=== PATIENT | male | born 1955 | race Caucasian/White ===

== ENCOUNTER 2016-09-06 15:17 | Emergency (ER) | payer OTHER ==
[2016-09-06 15:42] LABS: Glucose,Whole Blood 117 mg/dL (75-99)
[2016-09-06] MEDS ORDERED: SODIUM CHLORIDE 0.9% 1,000 ML IV ONE (15:50)
[2016-09-06 16:04] LABS: Basophils # (A) 0.1 k/uL (0-0.2); Basophils % (A) 1 %; CH 34.1; CHCM 34.5; Eosinophils # (A) 0.1 k/uL (0-0.7); Eosinophils % (A) 3 %; HCT 44.4 % (39.0-53.0); HGB 14.6 gm/dL (13.0-17.5); Luc # (Auto) 0.12; Luc % (Auto) 3; Lymphocytes # (A) 1.5 k/uL (1.0-4.8); Lymphocytes % (A) 33 %; MCH 32.7 pg (25.0-35.0); MCHC 32.9 g/dL (31.0-37.0); Mean Platelet Volume 7.9; Monocytes # (A) 0.3 k/uL (0-1.0); Monocytes % (A) 6 %; Neutrophils # (A) 2.5 k/uL (1.3-7.7); Neutrophils % (A) 54 %; RBC 4.47 m/uL (4.30-5.90); RDW 13.3 % (11.5-15.5); WBC 4.7 k/uL (3.8-10.6); WBC (Perox) 4.54
[2016-09-06 16:10] LABS: MCV 99.4 fL (80.0-100.0)
[2016-09-06 16:12] LABS: Prothrombin Time 10.1 sec (9.0-12.0)
[2016-09-06 16:14] LABS: ALT 49 U/L (21-72); AST 29 U/L (17-59); Alcohol <10 mg/dL; Alkaline Phosphatase 87 U/L (38-126); Anion Gap 8 mmol/L; Blood Urea Nitrogen 8 mg/dL (9-20); Calcium 8.9 mg/dL (8.4-10.2); Carbon Dioxide 30 mmol/L (22-30); Chloride 103 mmol/L (98-107); Glucose 117 mg/dL (74-99); Non-African American GFR(MDRD) >60 (>60 ml/min/1.73 sqM); Potassium 3.8 mmol/L (3.5-5.1); Sodium 141 mmol/L (137-145); Total Bilirubin 0.7 mg/dL (0.2-1.3); Total Protein 5.6 g/dL (6.3-8.2)
[2016-09-06 16:16] LABS: Creatine Kinase 26 U/L (55-170)
--- NOTE | 2016-09-06 16:26 | CT ---
EXAMINATION TYPE: CT brain wo con DATE OF EXAM: 09/06/2016 4:07 PM COMPARISON: NONE HISTORY: 61-year-old male with weakness and dizziness for one day. TECHNIQUE: Examination was done in axial plane without intravenous contrast. Coronal and sagittal reconstructio ns performed. CT DLP: 1123 mGycm Automated exposure control for dose reduction was used. FINDINGS: There is no evidence of acute intracranial hemorrhage, acute ischemic changes, mass, mass-effect, or extra-axial fluid collection. There is no effacement of cerebral sulci or basal subarachnoid cister ns. There is no hydrocephalus. There is no midline shift. Nunez-white matter distinction is preserv ed. There is mild to moderate generalized supratentorial volume loss and mild to moderate patchy white ma tter hypodensities in both cerebral hemispheres. There is moderate mucosal thickening within the maxillary sinuses and ethmoid air cells. Cerumen with in the left external auditory canal. Mastoid air cells well pneumatized. Orbits and globes are intact . IMPRESSION: 1. No acute intracranial abnormality seen. Mild to moderate atrophy and changes of chronic small vess el ischemic disease. 2. 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
[2016-09-06 16:29] LABS: Creatine Kinase MB 1.1 ng/mL (0.0-2.4); Troponin I <0.012 ng/mL (0.000-0.034)
--- NOTE | 2016-09-06 16:31 | XR ---
EXAMINATION TYPE: XR chest 2V DATE OF EXAM: 09/06/2016 4:10 PM COMPARISON: CT scan of the chest dated April 08, 2016 HISTORY: Altered mental status TECHNIQUE: Frontal and lateral views of the chest are obtained. FINDINGS: There is no focal air space opacity, pleural effusion, or pneumothorax seen. The cardiac silhouette size is within normal limits. Emphysematous changes are present within the lungs, there are prominent lung volumes. No pneumothorax or pleural effusion. Interstitium is prominent. Heart siz e is borderline. Pulmonary vascularity and kendra are within normal limits. Patient is rotated. The oss eous structures are intact. IMPRESSION: Emphysema, rotated exam, follow-up as indicated. There may be a component of interstitia l lung disease. Correlate to exclude pulmonary venous hypertension and interstitial edema. Follow-up suggested.
--- NOTE | 2016-09-06 16:32 | ED ---
General Adult HPI - General Chief complaint: Neuro Symptoms/Deficit Stated complaint: Dr Eason/Cecilia Time Seen by Provider: 09/06/16 15:26 Source: patient Mode of arrival: wheelchair - History of Present Illness Initial comments: This 61-year-old male presents with with a complaint of some slurred speech , memory problems, balance issues, and confusion. The symptoms started approximately 5 days ago. He apparently is having a difficult time ambulating and fell approximately 3 days ago but did not sustain any injuries. The relates that he apparently 4-5 days ago was seen at an urgent care for a cough. He is placed on a Zithromax Z-Zackery as well as a unknown cough medication. The symptoms seemed to have started shortly thereafter. He also was prescribed an inhaler which she has not taken. He also started Chantix approximately one week ago to try to stop smoking. He also was prescribed Librium. He also was prescribed lorazepam on August 13 for help in stopping his alcohol abuse. His symptoms seem to significantly worsen after taking all these medications. He normally is not used to taking any of these medications. He states that he normally drinks approximately 1 pint of alcohol per day but has cut back recently. He denies any lateralized weakness. No other complaints or modifying factors. - Related Data Home Medications Medication Instructions Recorded Confirmed Aspirin 325 mg PO DAILY 06/27/16 09/06/16 Carvedilol [Coreg] 3.125 mg PO BID 06/27/16 09/06/16 Finasteride [Proscar] 5 mg PO DAILY 07/17/16 09/06/16 LORazepam [Ativan] 0.5 mg PO Q6H PRN 07/17/16 09/06/16 Albuterol Inhaler [Ventolin Hfa 2 puff INHALATION Q4H PRN 09/06/16 09/06/16 Inhaler] Azithromycin [Zithromax Z-pack] See Taper PO DIRECTED 09/06/16 09/06/16 Benzonatate [Tessalon Perles] 100 mg PO TID PRN 09/06/16 09/06/16 Previous Rx's Medication Instructions Recorded Atorvastatin [Lipitor] 80 mg PO HS #90 tab 07/18/16 Clopidogrel [Plavix] 75 mg PO DAILY #90 tab 07/18/16 Allergies Allergy/AdvReac Type Severity Reaction Status Date / Time codeine AdvReac "spacey" Verified 09/06/16 15:27 Review of Systems ROS Statement: Those systems with pertinent positive or pertinent negative responses have been documented in the HPI. ROS Other: All systems not noted in ROS Statement are negative. Past Medical History Past Medical History: Chest Pain / Angina, Myocardial Infarction ([place]), Vascular Disorder Additional Past Medical History / Comment(s): PAIN IN LEG/FEET, CHRONIC BACK PAIN, CAN'T WALK LONG DISTANCES. Last Myocardial Infarction Date:: SILENT History of Any Multi-Drug Resistant Organisms: None Reported Past Surgical History: Heart Catheterization With Stent, Tonsillectomy Additional Past Surgical History / Comment(s): ANGIOGRAM 06/28/16 Past Anesthesia/Blood Transfusion Reactions: No Reported Reaction Past Psychological History: Anxiety Smoking Status: Current every day smoker Past Alcohol Use History: Daily Additional Past Alcohol Use History / Comment(s): HAS SMOKED FOR 50+ YRS, HAS REDUCED FROM 3PP TO 1PP. DRINKS ABOUT A PINT TO A FIFTH OF ALCOHOL PER DAY. IS TRYING VERY HARD TO QUIT BOTH. USING NICOTINE PATCH Past Drug Use History: None Reported - Past Family History Mother Family Medical History: CVA/TIA Father Family Medical History: CVA/TIA General Exam - General Exam Comments Initial Comments: GENERAL: The patient is well nourished and well hydrated. VITAL SIGNS: Heart rate, blood pressure, respiratory rate reviewed as recorded in nurse's notes. EYES: Pupils are round and reactive. Extraocular movements are intact. No conjunctival / lid redness or swelling. ENT: No external evidence of injury, swelling, or ecchymosis. Airway is patent. Throat is clear. There is some mild rhinophyma noted. NECK: Nontender. No swelling or evidence of injury. No subcutaneous emphysema. Trachea is midline. No thyroid mass. HEART: Regular rate and rhythm. Good peripheral pulses. LUNGS/CHEST: Breath sounds clear and equal bilaterally. No rales, rhonchi, or wheezes. No ecchymosis, subcutaneous emphysema, or tenderness. ABDOMEN: Abdomen soft without tenderness. No palpable masses or organomegaly. No peritoneal signs. No abdominal wall swelling or ecchymosis. EXTREMITIES: No extremity tenderness. Normal muscle tone and function. No thoracolumbar tenderness. NEUROLOGIC: Sensation is grossly intact. Cranial nerve exam reveals face is symmetrical, tongue is midline. There is some slight slurred speech. There is no lateralized abnormalities in regard to strength. SKIN: No abrasions or ecchymosis is noted. No induration or masses noted. PSYCHIATRIC: Alert and oriented. Appropriate behavior and judgment. Course Vital Signs 09/06/16 09/06/16 09/06/16 15:22 15:37 16:50 Temperature 97.5 F L Pulse Rate 91 84 73 Respiratory 18 16 15 Rate Blood Pressure 115/69 127/76 129/73 O2 Sat by Pulse 92 L 96 96 Oximetry 09/06/16 18:22 Temperature 96.9 F L Pulse Rate 75 Respiratory 16 Rate Blood Pressure 147/82 O2 Sat by Pulse 93 L Oximetry Medical Decision Making - Medical Decision Making The patient was seen and examined. All diagnostics were reviewed. An EKG was done which shows a normal sinus rhythm with a right bundle-branch block and associated ST-T wave changes. The LA interval is 158, castration is 146, and QTc interval is 515. The chest x-ray shows evidence of possible interstitial disease and COPD. The computed tomography scan of brain is negative. The laboratory is essentially negative. The urinalysis drug screen shows evidence of a positive value for benzodiazepines consistent with his medication history. This felt as though he is having his symptoms due to the medications he is taking. Is felt as though he should stop the Chantix and the Librium. He is agreeable. He is offered and recommended admission to the hospital but refuses. Return parameters are discussed. He actually does appear somewhat improved on recheck. No further slurring of speech and he is oriented. The states that she will bring him back if he does worsen. He leaves in no severe distress. - Lab Data Result diagrams: 09/06/16 15:45 09/06/16 15:45 Lab Results 09/06/16 09/06/16 09/06/16 Range/Units 15:37 15:45 15:45 WBC 4.7 (3.8-10.6) k/uL RBC 4.47 (4.30-5.90) m/uL Hgb 14.6 (13.0-17.5) gm/dL Hct 44.4 (39.0-53.0) % MCV 99.4 D (80.0-100.0) fL MCH 32.7 (25.0-35.0) pg MCHC 32.9 (31.0-37.0) g/dL RDW 13.3 (11.5-15.5) % Plt Count 140 L (150-450) k/uL Neutrophils % 54 % Lymphocytes % 33 % Monocytes % 6 % Eosinophils % 3 % Basophils % 1 % Neutrophils # 2.5 (1.3-7.7) k/uL Lymphocytes # 1.5 (1.0-4.8) k/uL Monocytes # 0.3 (0-1.0) k/uL Eosinophils # 0.1 (0-0.7) k/uL Basophils # 0.1 (0-0.2) k/uL PT (9.0-12.0) sec INR (<1.1) APTT (22.0-30.0) sec Sodium (137-145) mmol/L Potassium (3.5-5.1) mmol/L Chloride (98-107) mmol/L Carbon Dioxide (22-30) mmol/L Anion Gap mmol/L BUN (9-20) mg/dL Creatinine (0.66-1.25) mg/dL Est GFR (MDRD) Af Amer (>60 ml/min/1.73 sqM) Est GFR (MDRD) Non-Af (>60 ml/min/1.73 sqM) Glucose (74-99) mg/dL POC Glucose (mg/dL) 117 H (75-99) mg/dL POC Glu [employer] ID Adam, Hermelinda Calcium (8.4-10.2) mg/dL Total Bilirubin (0.2-1.3) mg/dL AST (17-59) U/L ALT (21-72) U/L Alkaline Phosphatase (38-126) U/L Total Creatine Kinase 26 L (55-170) U/L CK-MB (CK-2) 1.1 (0.0-2.4) ng/mL CK-MB (CK-2) Rel Index 4.2 Troponin I <0.012 (0.000-0.034) ng/mL Total Protein (6.3-8.2) g/dL Albumin (3.5-5.0) g/dL TSH (0.465-4.680) mIU/L Urine Color Urine Appearance (Clear) Urine pH (5.0-8.0) Ur Specific [place] (1.001-1.035) Urine Protein (Negative) Urine Glucose (UA) (Negative) Urine Ketones (Negative) Urine Blood (Negative) Urine Nitrate (Negative) Urine Bilirubin (Negative) Urine Urobilinogen (<2.0) mg/dL Ur Leukocyte Esterase (Negative) Urine Opiates Screen (NotDetected) Ur Oxycodone Screen (NotDetected) Urine Methadone Screen (NotDetected) Ur Propoxyphene Screen (NotDetected) Ur Barbiturates Screen (NotDetected) U Tricyclic Antidepress (NotDetected) Ur Phencyclidine Scrn (NotDetected) Ur Amphetamines Screen (NotDetected) U Methamphetamines Scrn (NotDetected) U Benzodiazepines Scrn (NotDetected) Urine Cocaine Screen (NotDetected) U Marijuana (THC) Screen (NotDetected) Serum Alcohol mg/dL 09/06/16 09/06/16 09/06/16 Range/Units 15:45 15:45 16:40 WBC (3.8-10.6) k/uL RBC (4.30-5.90) m/uL Hgb (13.0-17.5) gm/dL Hct (39.0-53.0) % MCV (80.0-100.0) fL MCH (25.0-35.0) pg MCHC (31.0-37.0) g/dL RDW (11.5-15.5) % Plt Count (150-450) k/uL Neutrophils % % Lymphocytes % % Monocytes % % Eosinophils % % Basophils % % Neutrophils # (1.3-7.7) k/uL Lymphocytes # (1.0-4.8) k/uL Monocytes # (0-1.0) k/uL Eosinophils # (0-0.7) k/uL Basophils # (0-0.2) k/uL PT 10.1 (9.0-12.0) sec INR 1.0 (<1.1) APTT 24.0 (22.0-30.0) sec Sodium 141 (137-145) mmol/L Potassium 3.8 (3.5-5.1) mmol/L Chloride 103 (98-107) mmol/L Carbon Dioxide 30 (22-30) mmol/L Anion Gap 8 mmol/L BUN 8 L (9-20) mg/dL Creatinine 0.78 (0.66-1.25) mg/dL Est GFR (MDRD) Af Amer >60 (>60 ml/min/1.73 sqM) Est GFR (MDRD) Non-Af >60 (>60 ml/min/1.73 sqM) Glucose 117 H (74-99) mg/dL POC Glucose (mg/dL) (75-99) mg/dL POC Glu [employer] ID Calcium 8.9 (8.4-10.2) mg/dL Total Bilirubin 0.7 (0.2-1.3) mg/dL AST 29 (17-59) U/L ALT 49 (21-72) U/L Alkaline Phosphatase 87 (38-126) U/L Total Creatine Kinase (55-170) U/L CK-MB (CK-2) (0.0-2.4) ng/mL CK-MB (CK-2) Rel Index Troponin I (0.000-0.034) ng/mL Total Protein 5.6 L (6.3-8.2) g/dL Albumin 3.5 (3.5-5.0) g/dL TSH 0.676 (0.465-4.680) mIU/L Urine Color Yellow Urine Appearance Clear (Clear) Urine pH 7.0 (5.0-8.0) Ur Specific [place] 1.015 (1.001-1.035) Urine Protein Trace H (Negative) Urine Glucose (UA) Negative (Negative) Urine Ketones Trace H (Negative) Urine Blood Negative (Negative) Urine Nitrate Negative (Negative) Urine Bilirubin Negative (Negative) Urine Urobilinogen 2.0 (<2.0) mg/dL Ur Leukocyte Esterase Negative (Negative) Urine Opiates Screen Not Detected (NotDetected) Ur Oxycodone Screen Not Detected (NotDetected) Urine Methadone Screen Not Detected (NotDetected) Ur Propoxyphene Screen Not Detected (NotDetected) Ur Barbiturates Screen Not Detected (NotDetected) U Tricyclic Antidepress Not Detected (NotDetected) Ur Phencyclidine Scrn Not Detected (NotDetected) Ur Amphetamines Screen Not Detected (NotDetected) U Methamphetamines Scrn Not Detected (NotDetected) U Benzodiazepines Scrn Detected H (NotDetected) Urine Cocaine Screen Not Detected (NotDetected) U Marijuana (THC) Screen Not Detected (NotDetected) Serum Alcohol <10 mg/dL Disposition Clinical Impression: Slurred speech, Confusion, Medication adverse effect Disposition: HOME SELF-CARE Condition: Fair Instructions: Acute Delirium (ED) Additional Instructions: Please stop the recently prescribed medications except for the Ativan/lorazepam. Referrals: Torrey Mcnair Jr, DO [Primary Care Provider] - 1-2 days Time of Disposition: 18:51
[2016-09-06 17:01] LABS: Appearance,Urine Clear (Clear); Bilirubin,Urine Negative (Negative); Glucose,Urine (UA) Negative (Negative); Ketones,Urine Trace (Negative); Leukocyte Esterase,Urine Negative (Negative); Nitrite,Urine Negative (Negative); Protein,Urine Trace (Negative); Specific Gravity,Urine 1.015 (1.001-1.035); UA Billing (MACRO vs. MICRO) CHEM
[2016-09-06 18:26] VITALS: RESP 16
[2016-09-06 19:05] VITALS: BP 138/71; PULSE 79; TEMP 97.8
== END 2016-09-06 19:00 | disposition home or self-care (01) ==
LOC: EC 15:17
DX: R47.81 Slurred speech (principal); R41.0 Disorientation, unspecified; T44.995A Adverse effect of other drug primarily affecting the autonomic nervous system, initial encounter; T42.4X5A Adverse effect of benzodiazepines, initial encounter; I25.2 Old myocardial infarction; Z95.5 Presence of coronary angioplasty implant and graft; F41.9 Anxiety disorder, unspecified; F17.200 Nicotine dependence, unspecified, uncomplicated; I45.10 Unspecified right bundle-branch block; Z79.899 Other long term (current) drug therapy; Z79.82 Long term (current) use of aspirin; Z88.5 Allergy status to narcotic agent
CPT/HCPCS: 36415; 70450; 71020; 80053; 80306; 80320; 81003; 82550; 82553; 84443; 84484; 85025; 85610; 85730; 93005; 96360; 96361; 99285

== ENCOUNTER 2016-12-01 08:56 | Emergency (ER) | payer OTHER ==
--- NOTE | 2016-12-01 09:25 | ED ---
General Adult HPI - General Chief complaint: Urogenital Stated complaint: Male Time Seen by Provider: 12/01/16 09:14 Source: patient, RN notes reviewed Mode of arrival: ambulatory Limitations: no limitations - History of Present Illness Initial comments: 61-year-old male presents to the emergency department with a chief complaint of pain with urination. Patient states these had this fullness to his bladder this right lower back pain since he stopped taking all his meds a few days ago when hehad black stools after taking Pepto-Bismol. Patient states only these been using his extremities he stopped taking his prostate meds and if the blood pressure medication. Patient denies any fever chills with this. Patient denies any cough cold runny nose. Patient states that his symptoms just are worsening and he is having less and less urine output and no bowel movement for the past 2 days. Patient states she is concerned she thought that he should be evaluated. Patient denies any recent fever, chills, shortness of breath, chest pain, back pain, nausea vomiting, numbness or tingling, dysuria or hematuria, constipation or diarrhea, headaches or visual changes, or any other current symptoms. - Related Data Home Medications Medication Instructions Recorded Confirmed Carvedilol [Coreg] 3.125 mg PO BID 06/27/16 12/01/16 Finasteride [Proscar] 5 mg PO DAILY 07/17/16 12/01/16 LORazepam [Ativan] 0.5 mg PO Q6H PRN 07/17/16 12/01/16 traMADol HCL [Ultram] 50 mg PO Q6HR PRN 12/01/16 12/01/16 Previous Rx's Medication Instructions Recorded Atorvastatin [Lipitor] 80 mg PO HS #90 tab 07/18/16 Clopidogrel [Plavix] 75 mg PO DAILY #90 tab 07/18/16 Famotidine [Pepcid] 20 mg PO BID #10 tablet 12/01/16 Allergies Allergy/AdvReac Type Severity Reaction Status Date / Time alendronate sodium Allergy Rash/Hives Verified 12/01/16 12:37 [From Fosamax] codeine AdvReac "spacey" Verified 12/01/16 12:37 Review of Systems ROS Statement: Those systems with pertinent positive or pertinent negative responses have been documented in the HPI. ROS Other: All systems not noted in ROS Statement are negative. Past Medical History Past Medical History: Chest Pain / Angina, Myocardial Infarction ([place]), Vascular Disorder Additional Past Medical History / Comment(s): PAIN IN LEG/FEET, CHRONIC BACK PAIN, CAN'T WALK LONG DISTANCES. Last Myocardial Infarction Date:: SILENT History of Any Multi-Drug Resistant Organisms: None Reported Past Surgical History: Heart Catheterization With Stent, Tonsillectomy Additional Past Surgical History / Comment(s): ANGIOGRAM 06/28/16 Past Anesthesia/Blood Transfusion Reactions: No Reported Reaction Past Psychological History: Anxiety Smoking Status: Current every day smoker Past Alcohol Use History: Daily Additional Past Alcohol Use History / Comment(s): HAS SMOKED FOR 50+ YRS, HAS REDUCED FROM 3PP TO 1PP. DRINKS ABOUT A PINT TO A FIFTH OF ALCOHOL PER DAY. IS TRYING VERY HARD TO QUIT BOTH. USING NICOTINE PATCH Past Drug Use History: None Reported - Past Family History Mother Family Medical History: CVA/TIA Father Family Medical History: CVA/TIA General Exam - General Exam Comments Initial Comments: General: The patient is awake and alert, in no distress, and does not appear acutely ill. Eye: Pupils are equal, round and reactive to light, extra-ocular movements are intact; there is normal conjunctiva bilaterally. No signs of icterus. Ears, nose, mouth and throat: There are moist mucous membranes and no oral lesions. Neck: The neck is supple, there is no tenderness. Cardiovascular: There is a regular rate and rhythm. No murmur, rub or gallop is appreciated. Respiratory: Lungs are clear to auscultation, respirations are non-labored, breath sounds are equal. No wheezes, stridor, rales, or rhonchi. Gastrointestinal: Soft, non-distended, distended lower abdomen with what appears to be an enlarged bladder abdomen without masses or organomegaly noted. There is no rebound or guarding present. No CVA tenderness. Bowel sounds are unremarkable. Back: There is no tenderness to palpation in the midline. There is no obvious deformity. No rashes noted. Musculoskeletal: Normal ROM, no tenderness, There is no pedal edema. There is no calf tenderness or swelling. Sensation intact. Pulses equal bilaterally 2+. Neurological: CN II-XII intact, There are no obvious motor or sensory deficits. Coordination appears grossly intact. Speech is normal. Skin: Skin is warm and dry and no rashes or lesions are noted. Psychiatric: Cooperative, appropriate mood & affect, normal judgment. Limitations: no limitations Course Vital Signs 12/01/16 09:06 Temperature 97.5 F L Pulse Rate 90 Respiratory 20 Rate Blood Pressure 116/60 O2 Sat by Pulse 99 Oximetry Medical Decision Making - Medical Decision Making 61-year-old male presents emergency Department with a chief complaint of difficulty with urination and bowel movements. At this time patient occult is positive with a Hgb of 11.2. Patient denies any lightheadedness or dizziness. At this time we discussed follow up with PCP for colonoscopy and additional testing. We did discuss return parameters and follow up. Patient stated that he understood and all questions have been answered. At this time patient will be discharged home. - Lab Data Result diagrams: 12/01/16 09:56 12/01/16 09:56 Lab Results 12/01/16 12/01/16 12/01/16 Range/Units 09:56 09:56 09:56 WBC 6.0 (3.8-10.6) k/uL RBC 3.33 L (4.30-5.90) m/uL Hgb 11.2 L (13.0-17.5) gm/dL Hct 33.5 L (39.0-53.0) % MCV 100.5 H (80.0-100.0) fL MCH 33.6 (25.0-35.0) pg MCHC 33.4 (31.0-37.0) g/dL RDW 14.7 (11.5-15.5) % Plt Count 168 (150-450) k/uL Neutrophils % 55 % Lymphocytes % 36 % Monocytes % 3 % Eosinophils % 1 % Basophils % 1 % Neutrophils # 3.3 (1.3-7.7) k/uL Lymphocytes # 2.2 (1.0-4.8) k/uL Monocytes # 0.2 (0-1.0) k/uL Eosinophils # 0.1 (0-0.7) k/uL Basophils # 0.0 (0-0.2) k/uL Macrocytosis Slight Sodium 134 L (137-145) mmol/L Potassium 4.8 (3.5-5.1) mmol/L Chloride 104 (98-107) mmol/L Carbon Dioxide 24 (22-30) mmol/L Anion Gap 6 mmol/L BUN 8 L (9-20) mg/dL Creatinine 0.65 L (0.66-1.25) mg/dL Est GFR (MDRD) Af Amer >60 (>60 ml/min/1.73 sqM) Est GFR (MDRD) Non-Af >60 (>60 ml/min/1.73 sqM) Glucose 119 H (74-99) mg/dL Calcium 8.7 (8.4-10.2) mg/dL Total Bilirubin 0.7 (0.2-1.3) mg/dL AST 21 (17-59) U/L ALT 37 (21-72) U/L Alkaline Phosphatase 49 (38-126) U/L Total Protein 5.6 L (6.3-8.2) g/dL Albumin 3.5 (3.5-5.0) g/dL Urine Color Yellow Urine Appearance Clear (Clear) Urine pH 5.5 (5.0-8.0) Ur Specific [place] 1.019 (1.001-1.035) Urine Protein Trace H (Negative) Urine Glucose (UA) Negative (Negative) Urine Ketones 1+ H (Negative) Urine Blood Negative (Negative) Urine Nitrite Negative (Negative) Urine Bilirubin Negative (Negative) Urine Urobilinogen 3.0 (<2.0) mg/dL Ur Leukocyte Esterase Negative (Negative) Stool Occult Blood (Negative) 12/01/16 Range/Units 12:19 WBC (3.8-10.6) k/uL RBC (4.30-5.90) m/uL Hgb (13.0-17.5) gm/dL Hct (39.0-53.0) % MCV (80.0-100.0) fL MCH (25.0-35.0) pg MCHC (31.0-37.0) g/dL RDW (11.5-15.5) % Plt Count (150-450) k/uL Neutrophils % % Lymphocytes % % Monocytes % % Eosinophils % % Basophils % % Neutrophils # (1.3-7.7) k/uL Lymphocytes # (1.0-4.8) k/uL Monocytes # (0-1.0) k/uL Eosinophils # (0-0.7) k/uL Basophils # (0-0.2) k/uL Macrocytosis Sodium (137-145) mmol/L Potassium (3.5-5.1) mmol/L Chloride (98-107) mmol/L Carbon Dioxide (22-30) mmol/L Anion Gap mmol/L BUN (9-20) mg/dL Creatinine (0.66-1.25) mg/dL Est GFR (MDRD) Af Amer (>60 ml/min/1.73 sqM) Est GFR (MDRD) Non-Af (>60 ml/min/1.73 sqM) Glucose (74-99) mg/dL Calcium (8.4-10.2) mg/dL Total Bilirubin (0.2-1.3) mg/dL AST (17-59) U/L ALT (21-72) U/L Alkaline Phosphatase (38-126) U/L Total Protein (6.3-8.2) g/dL Albumin (3.5-5.0) g/dL Urine Color Urine Appearance (Clear) Urine pH (5.0-8.0) Ur Specific [place] (1.001-1.035) Urine Protein (Negative) Urine Glucose (UA) (Negative) Urine Ketones (Negative) Urine Blood (Negative) Urine Nitrite (Negative) Urine Bilirubin (Negative) Urine Urobilinogen (<2.0) mg/dL Ur Leukocyte Esterase (Negative) Stool Occult Blood Positive (Negative) - Radiology Data Radiology results: report reviewed, image reviewed Disposition Clinical Impression: GI bleed, Constipation, Dehydration Disposition: HOME SELF-CARE Condition: Stable Instructions: Gastrointestinal Bleeding (ED), Constipation (ED) Additional Instructions: Please use medication as discussed. Please follow up with family doctor if symptoms have not improved over the next two days. Please return to the emergency room if your symptoms increase or worsen or for any other concerns. Prescriptions: Famotidine [Pepcid] 20 mg PO BID #10 tablet Referrals: Jaylen Silva MD [Primary Care Provider] - 1-2 days Mike Banuelos MD [STAFF PHYSICIAN] - 1-2 days Kamla Ramirez DO [Doctor of Osteopathic Medicine] - 1-2 days Time of Disposition: 13:06
[2016-12-01 10:11] LABS: Basophils % (A) 1 %; CH 34.7; CHCM 34.7; Eosinophils # (A) 0.1 k/uL (0-0.7); Eosinophils % (A) 1 %; HCT 33.5 % (39.0-53.0); HDW 2.54; HGB 11.2 gm/dL (13.0-17.5); Luc # (Auto) 0.22; Luc % (Auto) 4; Lymphocytes # (A) 2.2 k/uL (1.0-4.8); Lymphocytes % (A) 36 %; MCH 33.6 pg (25.0-35.0); MCHC 33.4 g/dL (31.0-37.0); MCV 100.5 fL (80.0-100.0); Macrocytosis Slight; Mean Platelet Volume 7.8; Monocytes # (A) 0.2 k/uL (0-1.0); Monocytes % (A) 3 %; Neutrophils # (A) 3.3 k/uL (1.3-7.7); Neutrophils % (A) 55 %; RBC 3.33 m/uL (4.30-5.90); RDW 14.7 % (11.5-15.5); WBC (Perox) 6.06
[2016-12-01 10:14] LABS: Appearance,Urine Clear (Clear); Bilirubin,Urine Negative (Negative); Glucose,Urine (UA) Negative (Negative); Ketones,Urine 1+ (Negative); Leukocyte Esterase,Urine Negative (Negative); Nitrite,Urine Negative (Negative); PH, Urine 5.5 (5.0-8.0); Protein,Urine Trace (Negative); Specific Gravity,Urine 1.019 (1.001-1.035); UA Billing (MACRO vs. MICRO) CHEM
--- NOTE | 2016-12-01 10:17 | XR ---
EXAMINATION TYPE: XR abdomen 2V DATE OF EXAM: 12/01/2016 10:07 AM CLINICAL DATA: 61-year-old male with generalized abdominal pain, constipation, difficulty urinating, PHH COMPARISON: None FINDINGS: Lung bases are clear. No evidence for free intraperitoneal air. No dilated small bowel or air-fluid levels. Scattered air and stool seen throughout the colon extendi ng distally into the rectum. [id number] overall stool burden. There are at least 4 calcifications in the right mid abdomen measuring up to 7 mm and at least one ca lcification on the left measuring up to 3 mm. S-shaped scoliosis of the spine with extensive metastatic vascular calcifications in the pelvis and p roximal thighs. Bilateral iliac artery stents are noted. IMPRESSION: 1. No evidence of bowel obstruction or free intraperitoneal air. 2. Bilateral nephrolithiasis measuring up to 7 mm on the right.
[2016-12-01 10:23] LABS: ALT 37 U/L (21-72); AST 21 U/L (17-59); Alkaline Phosphatase 49 U/L (38-126); Anion Gap 6 mmol/L; Blood Urea Nitrogen 8 mg/dL (9-20); Calcium 8.7 mg/dL (8.4-10.2); Carbon Dioxide 24 mmol/L (22-30); Chloride 104 mmol/L (98-107); Glucose 119 mg/dL (74-99); Non-African American GFR(MDRD) >60 (>60 ml/min/1.73 sqM); Potassium 4.8 mmol/L (3.5-5.1); Sodium 134 mmol/L (137-145); Total Bilirubin 0.7 mg/dL (0.2-1.3); Total Protein 5.6 g/dL (6.3-8.2)
[2016-12-01 13:29] VITALS: BP 118/68; PULSE 84; RESP 18; TEMP 98
== END 2016-12-01 13:28 | disposition home or self-care (01) ==
LOC: EC 08:56
DX: K92.2 Gastrointestinal hemorrhage, unspecified (principal); E86.0 Dehydration; K59.00 Constipation, unspecified; F17.200 Nicotine dependence, unspecified, uncomplicated; Z79.899 Other long term (current) drug therapy; Z88.5 Allergy status to narcotic agent; Z88.8 Allergy status to other drugs, medicaments and biological substances
CPT/HCPCS: 36415; 51798; 74020; 80053; 81003; 82272; 85025; 87086; 99284

== ENCOUNTER 2016-12-21 18:41 | Inpatient (IN) | payer OTHER ==
[2016-12-21] MEDS ORDERED: NITROGLYCERIN OINT 1 INCH/GM PACKET TOPICAL STA (18:50)
[2016-12-21] MEDS ORDERED: ASPIRIN 81 MG CHEW PO STA (18:51)
--- NOTE | 2016-12-21 18:57 | ED ---
General Adult HPI - General Chief complaint: Shortness of Breath Stated complaint: sob x 2 days, sent by [employer] Time Seen by Provider: 12/21/16 18:47 Source: patient, RN notes reviewed Mode of arrival: wheelchair Limitations: no limitations - History of Present Illness Initial comments: Patient is a pleasant 61-year-old male presenting to the emergency department with difficulty in breathing. Onset of symptoms was 2 days ago. Symptoms are exertional. Patient also states symptoms are worse with lying flat. Patient has not slept the past couple of nights. Minimal cough. Patient does have some associated chest discomfort. No history of lung problems. No leg pain or leg swelling. Patient did go to [facility] and x-ray there reportedly had some concern for fluid on the lungs. Patient did have a breathing treatment there without improvement of symptoms. - Related Data Home Medications Medication Instructions Recorded Confirmed Carvedilol [Coreg] 3.125 mg PO BID 06/27/16 12/21/16 Finasteride [Proscar] 5 mg PO DAILY 07/17/16 12/21/16 LORazepam [Ativan] 0.5 mg PO Q6H PRN 07/17/16 12/21/16 traMADol HCL [Ultram] 50 mg PO Q6HR PRN 12/01/16 12/21/16 Previous Rx's Medication Instructions Recorded Atorvastatin [Lipitor] 80 mg PO HS #90 tab 07/18/16 Clopidogrel [Plavix] 75 mg PO DAILY #90 tab 07/18/16 Famotidine [Pepcid] 20 mg PO BID #10 tablet 12/01/16 Allergies Allergy/AdvReac Type Severity Reaction Status Date / Time alendronate sodium Allergy Rash/Hives Verified 12/21/16 19:05 [From Fosamax] codeine AdvReac "spacey" Verified 12/21/16 19:05 Review of Systems ROS Statement: Those systems with pertinent positive or pertinent negative responses have been documented in the HPI. ROS Other: All systems not noted in ROS Statement are negative. Constitutional: Denies: fever Eyes: Denies: eye pain ENT: Denies: ear pain Respiratory: Reports: dyspnea Cardiovascular: Reports: chest pain Endocrine: Reports: fatigue Gastrointestinal: Denies: abdominal pain Genitourinary: Denies: dysuria Musculoskeletal: Denies: back pain Skin: Denies: rash Neurological: Denies: headache Past Medical History Past Medical History: Chest Pain / Angina, Myocardial Infarction ([place]), Vascular Disorder Additional Past Medical History / Comment(s): PAIN IN LEG/FEET, CHRONIC BACK PAIN, CAN'T WALK LONG DISTANCES. Last Myocardial Infarction Date:: SILENT History of Any Multi-Drug Resistant Organisms: None Reported Past Surgical History: Heart Catheterization With Stent, Tonsillectomy Additional Past Surgical History / Comment(s): ANGIOGRAM 06/28/16 Past Anesthesia/Blood Transfusion Reactions: No Reported Reaction Past Psychological History: Anxiety Smoking Status: Current every day smoker Past Alcohol Use History: Daily Additional Past Alcohol Use History / Comment(s): HAS SMOKED FOR 50+ YRS, HAS REDUCED FROM 3PP TO 1PP. DRINKS ABOUT A PINT TO A FIFTH OF ALCOHOL PER DAY. IS TRYING VERY HARD TO QUIT BOTH. USING NICOTINE PATCH Past Drug Use History: None Reported - Past Family History Mother Family Medical History: CVA/TIA Father Family Medical History: CVA/TIA General Exam Limitations: no limitations General appearance: alert Head exam: Present: atraumatic Eye exam: Present: normal appearance, PERRL ENT exam: Present: normal oropharynx Neck exam: Present: normal inspection Respiratory exam: Present: wheezes, rales, accessory muscle use Cardiovascular Exam: Present: tachycardia Expanded Peripheral pulses: 2+: Radial (R), Radial (L), Dorsalis Pedis (R), Dorsalis Pedis (L) GI/Abdominal exam: Present: soft. Absent: tenderness, guarding Extremities exam: Present: normal inspection. Absent: pedal edema, calf tenderness Neurological exam: Present: alert Psychiatric exam: Present: normal affect, normal mood Skin exam: Absent: rash Course Vital Signs 12/21/16 12/21/16 12/21/16 18:43 19:11 20:02 Temperature 97.8 F Pulse Rate 112 H 102 H Respiratory 20 22 24 Rate Blood Pressure 128/61 116/71 142/71 O2 Sat by Pulse 94 L 93 L 94 L Oximetry 12/21/16 12/21/16 12/21/16 20:19 20:29 20:44 Temperature 98.0 F Pulse Rate 104 H 100 103 H Respiratory 22 Rate Blood Pressure 133/82 O2 Sat by Pulse 93 L Oximetry 12/21/16 22:00 Temperature Pulse Rate 50 L Respiratory 20 Rate Blood Pressure O2 Sat by Pulse 97 Oximetry EKG Findings - EKG Comments: EKG Findings:: Sinus tachycardia 103. MD 170. QRS 148. QT 400. QTc 524. Right axis. Right bundle branch block. Nonspecific ST-T. Motion artifact is present. Medical Decision Making - Medical Decision Making Patient reexamined and improved. Patient still has dyspnea however is not in respiratory distress. Patient was updated on results and plan. Case was discussed in detail with Dr. Silva, who will admit his patient. - Lab Data Result diagrams: 12/21/16 19:00 12/21/16 19:00 Lab Results 12/21/16 12/21/16 12/21/16 Range/Units 19:00 19:00 19:00 WBC 4.4 (3.8-10.6) k/uL RBC 3.33 L (4.30-5.90) m/uL Hgb 10.6 L (13.0-17.5) gm/dL Hct 32.6 L (39.0-53.0) % MCV 98.0 (80.0-100.0) fL MCH 31.9 (25.0-35.0) pg MCHC 32.6 (31.0-37.0) g/dL RDW 14.6 (11.5-15.5) % Plt Count 151 (150-450) k/uL Neutrophils % 74 % Lymphocytes % 17 % Monocytes % 2 % Eosinophils % 2 % Basophils % 1 % Neutrophils # 3.3 (1.3-7.7) k/uL Lymphocytes # 0.8 L (1.0-4.8) k/uL Monocytes # 0.1 (0-1.0) k/uL Eosinophils # 0.1 (0-0.7) k/uL Basophils # 0.0 (0-0.2) k/uL Poikilocytosis Slight PT (9.0-12.0) sec INR (<1.1) APTT (22.0-30.0) sec Sodium 133 L (137-145) mmol/L Potassium 3.5 (3.5-5.1) mmol/L Chloride 101 (98-107) mmol/L Carbon Dioxide 20 L (22-30) mmol/L Anion Gap 12 mmol/L BUN 12 (9-20) mg/dL Creatinine 0.68 (0.66-1.25) mg/dL Est GFR (MDRD) Af Amer >60 (>60 ml/min/1.73 sqM) Est GFR (MDRD) Non-Af >60 (>60 ml/min/1.73 sqM) Glucose 142 H (74-99) mg/dL Calcium 8.2 L (8.4-10.2) mg/dL Total Bilirubin 0.7 (0.2-1.3) mg/dL AST 22 (17-59) U/L ALT 31 (21-72) U/L Alkaline Phosphatase 94 (38-126) U/L Total Creatine Kinase 133 (55-170) U/L CK-MB (CK-2) 1.7 (0.0-2.4) ng/mL CK-MB (CK-2) Rel Index 1.3 Troponin I 0.079 H* (0.000-0.034) ng/mL NT-Pro-B Natriuret Pep pg/mL Total Protein 5.7 L (6.3-8.2) g/dL Albumin 3.6 (3.5-5.0) g/dL 12/21/16 12/21/16 Range/Units 19:00 19:00 WBC (3.8-10.6) k/uL RBC (4.30-5.90) m/uL Hgb (13.0-17.5) gm/dL Hct (39.0-53.0) % MCV (80.0-100.0) fL MCH (25.0-35.0) pg MCHC (31.0-37.0) g/dL RDW (11.5-15.5) % Plt Count (150-450) k/uL Neutrophils % % Lymphocytes % % Monocytes % % Eosinophils % % Basophils % % Neutrophils # (1.3-7.7) k/uL Lymphocytes # (1.0-4.8) k/uL Monocytes # (0-1.0) k/uL Eosinophils # (0-0.7) k/uL Basophils # (0-0.2) k/uL Poikilocytosis PT 10.5 (9.0-12.0) sec INR 1.0 (<1.1) APTT 25.2 (22.0-30.0) sec Sodium (137-145) mmol/L Potassium (3.5-5.1) mmol/L Chloride (98-107) mmol/L Carbon Dioxide (22-30) mmol/L Anion Gap mmol/L BUN (9-20) mg/dL Creatinine (0.66-1.25) mg/dL Est GFR (MDRD) Af Amer (>60 ml/min/1.73 sqM) Est GFR (MDRD) Non-Af (>60 ml/min/1.73 sqM) Glucose (74-99) mg/dL Calcium (8.4-10.2) mg/dL Total Bilirubin (0.2-1.3) mg/dL AST (17-59) U/L ALT (21-72) U/L Alkaline Phosphatase (38-126) U/L Total Creatine Kinase (55-170) U/L CK-MB (CK-2) (0.0-2.4) ng/mL CK-MB (CK-2) Rel Index Troponin I (0.000-0.034) ng/mL NT-Pro-B Natriuret Pep 2040 pg/mL Total Protein (6.3-8.2) g/dL Albumin (3.5-5.0) g/dL - Radiology Data Radiology results: image reviewed (Chest x-ray shows vascular congestion.) Disposition Clinical Impression: Congestive heart failure Disposition: ADMITTED IP TO THIS HOSP
[2016-12-21 19:26] LABS: Basophils % (A) 1 %; CHCM 33.8; Eosinophils # (A) 0.1 k/uL (0-0.7); Eosinophils % (A) 2 %; HCT 32.6 % (39.0-53.0); HDW 3.45; HGB 10.6 gm/dL (13.0-17.5); Luc # (Auto) 0.16; Luc % (Auto) 4; Lymphocytes # (A) 0.8 k/uL (1.0-4.8); Lymphocytes % (A) 17 %; MCH 31.9 pg (25.0-35.0); MCHC 32.6 g/dL (31.0-37.0); Monocytes # (A) 0.1 k/uL (0-1.0); Monocytes % (A) 2 %; Neutrophils # (A) 3.3 k/uL (1.3-7.7); Neutrophils % (A) 74 %; Poikilocytosis Slight; RBC 3.33 m/uL (4.30-5.90); RDW 14.6 % (11.5-15.5); WBC 4.4 k/uL (3.8-10.6); WBC (Perox) 4.32
[2016-12-21 19:28] LABS: ALT 31 U/L (21-72); AST 22 U/L (17-59); Alkaline Phosphatase 94 U/L (38-126); Anion Gap 12 mmol/L; Blood Urea Nitrogen 12 mg/dL (9-20); Calcium 8.2 mg/dL (8.4-10.2); Carbon Dioxide 20 mmol/L (22-30); Chloride 101 mmol/L (98-107); Glucose 142 mg/dL (74-99); Non-African American GFR(MDRD) >60 (>60 ml/min/1.73 sqM); Potassium 3.5 mmol/L (3.5-5.1); Sodium 133 mmol/L (137-145); Total Bilirubin 0.7 mg/dL (0.2-1.3); Total Protein 5.7 g/dL (6.3-8.2)
[2016-12-21 19:34] LABS: Partial Thromboplastin Time 25.2 sec (22.0-30.0); Prothrombin Time 10.5 sec (9.0-12.0)
[2016-12-21] MEDS ORDERED: FUROSEMIDE 10 MG/ML 4 ML VIAL IV STA (19:44)
--- NOTE | 2016-12-21 19:48 | XR ---
EXAMINATION TYPE: XR chest 2V DATE OF EXAM: 12/21/2016 7:30 PM COMPARISON: Chest x-ray September 06, 2016. HISTORY: Difficulty in breathing for 2 days. TECHNIQUE: Frontal and lateral views of the chest are obtained. FINDINGS: Underlying emphysematous change is present. . Increased central markings is felt present b ilaterally. No suspicious focal airspace opacity, pleural effusion, or pneumothorax is seen. The card iac silhouette size remains within normal limits with atherosclerotic and ectatic thoracic aorta. T he osseous structures are intact. IMPRESSION: Chronic emphysematous change with new mild central vascular congestion felt present, cons ider fluid overload state.
[2016-12-21] MEDS ORDERED: IPRATROPIUM-ALBUTEROL 3 ML NEB INHALATION STA (19:50)
[2016-12-21 19:56] LABS: Creatine Kinase MB 1.7 ng/mL (0.0-2.4); Troponin I 0.079 ng/mL (0.000-0.034)
[2016-12-21] MEDS ORDERED: ASPIRIN 325 MG TAB PO STA (23:24)
[2016-12-21] MEDS ORDERED: LORazepam 2 MG/ML SYRINGE IV PRN ×2 (23:53)
[2016-12-21] MEDS ORDERED: THIAMINE 100 MG/ML 2 ML VIAL IM STA (23:53)
[2016-12-21] MEDS ORDERED: HEPARIN SODIUM,PORCINE 5,000 UNIT/ML 1 ML VIAL IV ONE (23:54)
[2016-12-22] MEDS: THIAMINE 100 MG TAB PO SCH ×3 (00:42→18:11)
[2016-12-22] MEDS: FUROSEMIDE 10 MG/ML 4 ML VIAL IV SCH ×2 (00:52→06:32)
[2016-12-22] MEDS: LORazepam 2 MG/ML SYRINGE IV PRN ×4 (00:54→22:09)
[2016-12-22] MEDS: HEPARIN SODIUM,PORCINE/D5W PMX 25,000 UNIT in DEXTROSE/WATER 1 500ML.BAG IV SCH ×2 (00:56→22:03)
[2016-12-22] MEDS: IPRATROPIUM-ALBUTEROL 3 ML NEB INHALATION PRN ×2 (03:48→09:06)
[2016-12-22] MEDS ORDERED: ACETAMINOPHEN TAB 325 MG TAB PO PRN (03:52)
[2016-12-22 04:17] LABS: HDW 3.49; Hypochromasia Slight; Poikilocytosis Slight
[2016-12-22 04:19] LABS: Basophils % (A) 0 %; CH 32.8; CHCM 33.8; Eosinophils % (A) 1 %; HCT 32.7 % (39.0-53.0); HGB 10.9 gm/dL (13.0-17.5); Luc # (Auto) 0.11; Luc % (Auto) 3; Lymphocytes # (A) 0.7 k/uL (1.0-4.8); Lymphocytes % (A) 19 %; MCH 32.5 pg (25.0-35.0); MCHC 33.5 g/dL (31.0-37.0); Mean Platelet Volume 7.3; Monocytes # (A) 0.2 k/uL (0-1.0); Monocytes % (A) 5 %; Neutrophils # (A) 2.5 k/uL (1.3-7.7); Neutrophils % (A) 71 %; RBC 3.37 m/uL (4.30-5.90); RDW 14.5 % (11.5-15.5); WBC 3.6 k/uL (3.8-10.6); WBC (Perox) 3.49
[2016-12-22] MEDS: traMADol 50 MG TAB PO PRN ×2 (04:32→15:07)
--- NOTE | 2016-12-22 07:52 | XR ---
EXAMINATION TYPE: XR chest 2V DATE OF EXAM: 12/22/2016 6:20 AM COMPARISON: 12/21/2016 HISTORY: 61-year-old male with labored respiratory status TECHNIQUE: Frontal and lateral views FINDINGS: Heart remains borderline enlarged. Elongation of the thoracic aorta. Diffuse interstitial prominence. There may be subtle early infiltrates at the right upper lung. Hyperinflation with flattening of the hemidiaphragms. There also appears to be bilateral hilar enlargement. IMPRESSION: 1. Borderline cardiomegaly and COPD. 2. The interstitial prominence may reflect mild pulmonary vascular congestion. Correlate to exclude b ronchitis or chronic asthma. There may be a couple areas of early developing infiltrates in the right upper lobe. Follow-up recommended. 3. Bilateral hilar enlargement. Correlate for underlying pulmonary arterial hypertension.
[2016-12-22] MEDS: NITROGLYCERIN OINT 1 INCH/GM PACKET TOPICAL SCH ×4 (08:49→22:03)
[2016-12-22] MEDS: HEPARIN SODIUM,PORCINE 5,000 UNIT/ML 1 ML VIAL IV PRN ×2 (08:50→18:15)
[2016-12-22] MEDS ORDERED: Magnesium Replacement Protocol 1 EACH MISC MISCELLANE PRN (08:59)
[2016-12-22] MEDS ORDERED: Potassium Replacement Protocol 1 EACH MISC MISCELLANE PRN (09:00)
[2016-12-22] MEDS ORDERED: POTASSIUM CHLORIDE ER 20 MEQ TAB.ER PO SCH (10:00)
[2016-12-22] MEDS: FUROSEMIDE 250 MG in SODIUM CHLORIDE 0.9% 225 ML IVP SCH (10:11)
[2016-12-22] MEDS: MAGNESIUM SULFATE-D5W PMX 1 GM in DEXTROSE/WATER 1 100ML.BAG IVPB SCH ×2 (10:57→12:04)
[2016-12-22] MEDS: IPRATROPIUM-ALBUTEROL 3 ML NEB INHALATION SCH ×4 (11:22→23:50)
--- NOTE | 2016-12-22 11:30 | P.CRDCN ---
History of Present Illness Consult date: 12/22/16 Chief complaint: shortness of breath History of present illness: This is a pleasant 61-year-old gentleman who I follow in the office as an outpatient regarding PAD but the patient follows with Dr. Guillory regarding hypertension and dyslipidemia presented to the hospital with dyspnea. According to him, he was in his usual state of health until about 2 days ago when he started experiencing slowly progressive exertional dyspnea associated with orthopnea and PND. The patient stated that he was not able to sleep well during the night because of the shortness of breath which was associated with cough. He did not experience any chest pain or chest discomfort. He did not notice any bilateral lower extremities edema. As a matter of fact I saw the patient in the office about a week ago and he was asymptomatic from the cardiovascular standpoint of view. Unfortunately he continues to smoke but he stated that he cut down on smoking significantly. The chest x-ray showed findings consistent with CHF as well as COPD. The BNP was checked and came in to be more than 2000. Initially the patient was started on Lasix IV but the shortness of breath was getting worse and I put the patient on Lasix drip. The cardiac enzymes were checked and came in to be slightly abnormal which I do think that is related to hypoxia and sinus tachycardia. I will obtain an echocardiogram was Doppler to establish LV function. I started him on Lasix drip. He is going to be transferred to the intensive care unit because he seems to be in mild respiratory distress. We'll continue following up with the patient. Past Medical History Past Medical History: Chest Pain / Angina, Myocardial Infarction ([place]), Vascular Disorder Additional Past Medical History / Comment(s): PAIN IN LEG/FEET, CHRONIC BACK PAIN, CAN'T WALK LONG DISTANCES. Last Myocardial Infarction Date:: SILENT History of Any Multi-Drug Resistant Organisms: None Reported Past Surgical History: Tonsillectomy Additional Past Surgical History / Comment(s): ANGIOGRAM 06/28/16. iliac stents placed bilaterally 07-17-[address] Oliver Past Anesthesia/Blood Transfusion Reactions: No Reported Reaction Past Psychological History: Anxiety, Depression Smoking Status: Current every day smoker Past Alcohol Use History: Daily Additional Past Alcohol Use History / Comment(s): HAS SMOKED FOR 50+ YRS, HAS REDUCED FROM 3PP TO 1PP. DRINKS ABOUT A PINT TO A FIFTH OF ALCOHOL PER DAY. IS TRYING VERY HARD TO QUIT BOTH. USING NICOTINE PATCH Past Drug Use History: None Reported - Past Family History Mother Family Medical History: CVA/TIA Father Family Medical History: CVA/TIA Medications and Allergies Home Medications Medication Instructions Recorded Confirmed Type Carvedilol [Coreg] 3.125 mg PO BID 06/27/16 12/21/16 History Finasteride [Proscar] 5 mg PO DAILY 07/17/16 12/21/16 History LORazepam [Ativan] 0.5 mg PO Q6H PRN 07/17/16 12/21/16 History traMADol HCL [Ultram] 50 mg PO Q6HR PRN 12/01/16 12/21/16 History Allergies Allergy/AdvReac Type Severity Reaction Status Date / Time alendronate sodium Allergy Rash/Hives Verified 12/21/16 19:05 [From Fosamax] codeine AdvReac "spacey" Verified 12/21/16 19:05 Physical Exam Vitals: Vital Signs Temp Pulse Pulse Resp BP BP Pulse Ox 12/22/16 09:18 100 12/22/16 09:09 96 12/22/16 08:36 99.4 F 107 H 30 H 130/74 91 L 12/22/16 08:30 30 H 12/22/16 03:53 88 12/22/16 03:47 101.7 F H 113 H 36 H 134/69 93 L 12/22/16 03:40 88 12/22/16 01:00 100.1 F H 110 H 22 142/81 95 12/21/16 23:45 98.9 F 107 H 20 131/79 93 L Intake and Output 12/21/16 12/22/16 12/22/16 22:59 06:59 14:59 Intake Total 195 159.027 Output Total 1700 Balance -1505 159.027 Intake: IV 195 0.9 65 Heparin Sodium,Porcine/ 130 D5w Pmx 25,000 unit In Dextrose/Water 1 500ml. bag @ 12 UNITS/KG/HR 20. 13 mls/hr IV .Q24H JACQUE Rx #:[id number] Intake, IV Titration 159.027 Amount Heparin Sodium,Porcine/ 159.027 D5w Pmx 25,000 unit In Dextrose/Water 1 500ml. bag @ 12 UNITS/KG/HR 20. 13 mls/hr IV .Q24H JACQUE Rx #:[id number] Output: Urine 1700 Other: Voiding Method Toilet Toilet Urinal Urinal # Voids 3 Weight 84.9 kg - Constitutional General appearance: mild distress - Respiratory Respiratory: bilateral: rales, rhonchi, wheezing - Cardiovascular Rhythm: regular Heart sounds: normal: S1, S2 Results 12/22/16 04:06 12/22/16 04:06 Cardiac Enzymes 12/22/16 12/22/16 Range/Units 02:53 06:58 Troponin I 0.063 H* 0.089 H* (0.000-0.034) ng/mL Coagulation 12/22/16 Range/Units 06:58 APTT 29.5 (22.0-30.0) sec CBC 12/22/16 Range/Units 04:06 WBC 3.6 L (3.8-10.6) k/uL RBC 3.37 L (4.30-5.90) m/uL Hgb 10.9 L (13.0-17.5) gm/dL Hct 32.7 L (39.0-53.0) % Plt Count 145 L (150-450) k/uL Comprehensive Metabolic Panel 12/22/16 Range/Units 04:06 Potassium 3.8 (3.5-5.1) mmol/L Current Medications Generic Name Dose Route Start Last Admin Trade Name Freq PRN Reason Stop Dose Admin Acetaminophen 650 mg 12/22/16 03:52 12/22/16 04:33 Tylenol Tab PO 650 mg Q4HR PRN Administration Fever and/ or Pain Albuterol/Ipratropium 3 ml 12/22/16 12:00 12/22/16 11:22 Duoneb 0.5 Mg-3 Mg/3 Ml Soln INHALATION 3 ml RT-Q4H JACQUE Administration Aspirin 325 mg 12/22/16 23:25 Aspirin PO DAILY [facility] Atorvastatin Calcium 80 mg 12/22/16 21:00 Lipitor PO HS [facility] Budesonide 1 mg 12/22/16 20:00 Pulmicort INHALATION RT-BID [facility] Carvedilol 3.125 mg 12/22/16 09:00 Coreg PO BID [facility] Clopidogrel Bisulfate 75 mg 12/22/16 09:00 Plavix PO DAILY [facility] Famotidine 20 mg 12/22/16 09:00 Pepcid PO BID [facility] Finasteride 5 mg 12/22/16 09:00 Proscar PO DAILY [facility] Formoterol Fumarate 20 mcg 12/22/16 20:00 Perforomist INHALATION RT-BID [facility] Heparin Sodium (Porcine) 0 unit 12/21/16 23:54 12/22/16 08:50 Heparin IV 4,000 unit PER PROTOCOL PRN Administration Low PTT Protocol Heparin Sodium/Dextrose 25,000 500 mls @ 20.13 mls/hr 12/21/16 23:45 08:50 unit/ IV Solution IV 15 units/kg/hr .Q24H JACQUE 25.17 mls/hr Protocol Titration 12 UNITS/KG/HR Magnesium Sulfate/Dextrose 1 100 mls @ 100 mls/hr 12/22/16 10:00 12/22/16 10: 57 gm/ IV Solution IVPB 12/22/16 11:59 100 mls/hr Q1H [facility]ACQUE Administration Furosemide 250 mg/ Sodium 250 mls @ 5 mls/hr 12/22/16 10:00 12/22/16 10:11 Chloride IVP 5 mg/hr .Q24H JACQUE 5 mls/hr 5 MG/HR Administration Lorazepam 1 mg 12/21/16 23:53 12/22/16 08:50 Ativan IV 1 mg Q2HR PRN Administration CIWA 8 or 9 Lorazepam 1 mg 12/21/16 23:53 Ativan IV Q1HR PRN CIWA 10 to 15 Lorazepam 2 mg 12/21/16 23:53 Ativan IV Q1HR PRN CIWA 16 or higher Methylprednisolone Sodium Succinate 60 mg 12/22/16 13:00 Solu-Medrol IV Q6HR [facility] Miscellaneous Information 1 each 12/22/16 08:59 Magnesium Per Protocol MISCELLANE DAILY PRN Per Protocol Protocol Miscellaneous Information 1 each 12/22/16 09:00 Potassium Per Protocol MISCELLANE DAILY PRN Per Protocol Protocol Multivitamins 1 each 12/22/16 12:00 Theragran PO DAILY@1200 [facility] Nitroglycerin 1 inch 12/22/16 09:00 12/22/16 08:49 Nitro-Bid Oint TOPICAL 1 inch QID [facility] Administration Sodium Chloride 10 ml 12/22/16 09:00 12/22/16 08:51 Saline Flush IV 10 ml BID [facility] Administration Thiamine HCl 100 mg 12/21/16 17:00 12/22/16 00:42 Vitamin B-1 PO Not Given BID@1200,1700 [facility] Tramadol HCl 50 mg 12/22/16 03:52 12/22/16 04:32 Ultram PO 50 mg Q6HR PRN Administration Pain Intake and Output 12/21/16 12/22/16 12/22/16 22:59 06:59 14:59 Intake Total 195 159.027 Output Total 1700 Balance -1505 159.027 Intake: IV 195 0.9 65 Heparin Sodium,Porcine/ 130 D5w Pmx 25,000 unit In Dextrose/Water 1 500ml. bag @ 12 UNITS/KG/HR 20. 13 mls/hr IV .Q24H [facility] Rx #:[id number] Intake, IV Titration 159.027 Amount Heparin Sodium,Porcine/ 159.027 D5w Pmx 25,000 unit In Dextrose/Water 1 500ml. bag @ 12 UNITS/KG/HR 20. 13 mls/hr IV .Q24H [facility] Rx #:[id number] Output: Urine 1700 Other: Voiding Method Toilet Toilet Urinal Urinal # Voids 3 Weight 84.9 kg 12/22/16 04:06 12/22/16 04:06 Assessment and Plan Plan: assessment #1 acute hypoxic respiratory failure #2 congestive heart failure exacerbation and known if it's due to systolic or diastolic #3 COPD exacerbation #4 hypertension #5 dyslipidemia #6 PAD Plan #1 the patient was started on Lasix drip #2 ICU admission #3 monitor the kidney function and electrolytes #4 obtain an echocardiogram was Doppler #5 continue the aspirin and statin #6 follow-up with the patient
[2016-12-22 11:31] LABS: ABG Base Excess 0.4 mmol/L; ABG HCO3 24 mmol/L (21-25); ABG PCO2 35 mmHg (35-45); ABG PH 7.45 (7.35-7.45); ABG PO2 61 mmHg (83-108); ABG TCO2 25 mmol/L (19-24)
[2016-12-22 12:00] LABS: Glucose,Whole Blood 143 mg/dL (75-99)
[2016-12-22] MEDS: methylPREDNISolone SOD SUCCI 125 MG/2 ML VIAL IV SCH ×2 (12:04→18:11)
[2016-12-22] MEDS: CARVEDILOL 3.125 MG TAB PO SCH ×2 (12:05→23:11)
[2016-12-22] MEDS: CLOPIDOGREL 75 MG TAB PO SCH (12:05)
[2016-12-22] MEDS: FINASTERIDE 5 MG TAB PO SCH (12:05)
[2016-12-22] MEDS: FAMOTIDINE 20 MG TAB PO SCH ×2 (12:05→22:02)
[2016-12-22 12:06] LABS: Appearance,Urine Clear (Clear); Bacteria,Urine Rare /hpf; Bilirubin,Urine Negative (Negative); Glucose,Urine (UA) Negative (Negative); Ketones,Urine Negative (Negative); Leukocyte Esterase,Urine Negative (Negative); Mucus,Urine Rare /hpf; Nitrite,Urine Negative (Negative); Particle Count 4469; Protein,Urine Negative (Negative); RBC,Urine 99 /hpf (0-5); Specific Gravity,Urine 1.009 (1.001-1.035); UA Billing (MACRO vs. MICRO) MICRO; Urobilinogen,Urine <2.0 mg/dL (<2.0); WBC,Urine 3 /hpf (0-5)
[2016-12-22] MEDS: MULTIVITAMINS, THERA 1 EACH TAB PO SCH (12:06)
--- NOTE | 2016-12-22 13:05 | P.CNPUL ---
History of Present Illness Consult date: 12/22/16 Reason for consult: dyspnea, COPD History of present illness: A 61-year-old male patient was admitted to the hospital today and I was asked to evaluate this patient immediately as the patient was noted to be in quite asked her distress. I saw the patient and it was obvious that he was struggling with his breathing, he was actively bronchospastic and wheezy with prolongation of the expiratory phase of breathing and he was also tachypneic with a breathing rate of more than 30. Immediately the patient got moved to the intensive care unit. Her blood gases was done that showed no significant respiratory acidosis. The chest x-ray showed increased interstitial markings bilaterally and the patient was already started on diuretics. He denied having any chest pain. He is known to have coronary artery disease and extensive peripheral vascular disease. She has had previous Vascular intervention and stenting in lower extremities bilaterally for treatment of claudication. He is a chronic smoker. The proBNP level is modestly elevated. Troponin was slightly abnormal and the patient was started on IV heparin and cardiology evaluation is to follow. The echocardiogram was also ordered to assess his underlying LV function. He denies having any chest pain. No mental status change. No confusion. He had a congested cough. No hemoptysis. No pleurisy. No history of DVT. No pulmonary embolism. No official diagnosis of COPD and the patient has not been on inhalers or bronchodilators on outpatient basis. The patient is a chronic smoker. He also has an issue with alcoholism. Review of Systems All systems: negative Constitutional: Denies chills, Denies fever Eyes: denies blurred vision, denies pain Ears, nose, mouth and throat: Denies headache, Denies sore throat Cardiovascular: Reports claudication, Reports dyspnea on exertion, Denies chest pain, Denies shortness of breath Respiratory: Reports cough with sputum, Reports dyspnea, Reports wheezing, Denies cough Gastrointestinal: Denies abdominal pain, Denies diarrhea, Denies nausea, Denies vomiting Musculoskeletal: Denies myalgias Integumentary: Denies pruritus, Denies rash Neurological: Denies numbness, Denies weakness Psychiatric: Denies anxiety, Denies depression Endocrine: Denies fatigue, Denies weight change Past Medical History Past Medical History: Chest Pain / Angina, Myocardial Infarction (LA), Vascular Disorder Additional Past Medical History / Comment(s): COPD, coronary artery disease, severe peripheral vascular disease and chronic claudication, chronic back pain, chronic smoker, alcoholism, BPH Last Myocardial Infarction Date:: SILENT History of Any Multi-Drug Resistant Organisms: None Reported Past Surgical History: Tonsillectomy Additional Past Surgical History / Comment(s): ANGIOGRAM 06/28/16, iliac stents placed bilaterally 07-17-[address] Oliver Past Anesthesia/Blood Transfusion Reactions: No Reported Reaction Past Psychological History: Anxiety, Depression Smoking Status: Current every day smoker Past Alcohol Use History: Daily Additional Past Alcohol Use History / Comment(s): HAS SMOKED FOR 50+ YRS, HAS REDUCED FROM 3PP TO 1PP. DRINKS ABOUT A PINT TO A FIFTH OF ALCOHOL PER DAY. IS TRYING VERY HARD TO QUIT BOTH. USING NICOTINE PATCH Past Drug Use History: None Reported - Past Family History Mother Family Medical History: CVA/TIA Father Family Medical History: CVA/TIA Medications and Allergies Home Medications Medication Instructions Recorded Confirmed Type Carvedilol [Coreg] 3.125 mg PO BID 06/27/16 12/21/16 History Finasteride [Proscar] 5 mg PO DAILY 07/17/16 12/21/16 History LORazepam [Ativan] 0.5 mg PO Q6H PRN 07/17/16 12/21/16 History traMADol HCL [Ultram] 50 mg PO Q6HR PRN 12/01/16 12/21/16 History Allergies Allergy/AdvReac Type Severity Reaction Status Date / Time alendronate sodium Allergy Rash/Hives Verified 12/21/16 19:05 [From Fosamax] codeine AdvReac "spacey" Verified 12/21/16 19:05 Physical Exam Vitals: Vital Signs Temp Pulse Pulse Resp BP BP Pulse Ox 12/22/16 12:06 91 L 12/22/16 11:33 100 12/22/16 11:25 100 12/22/16 11:00 99.4 F 103 H 34 H 106/66 87 L 12/22/16 09:18 100 12/22/16 09:09 96 12/22/16 08:36 99.4 F 107 H 30 H 130/74 91 L 12/22/16 08:30 30 H 12/22/16 03:53 88 12/22/16 03:47 101.7 F H 113 H 36 H 134/69 93 L 12/22/16 03:40 88 12/22/16 01:00 100.1 F H 110 H 22 142/81 95 12/21/16 23:45 98.9 F 107 H 20 131/79 93 L Intake and Output 12/21/16 12/22/16 12/22/16 22:59 06:59 14:59 Intake Total 195 159.027 Output Total 1700 Balance -1505 159.027 Intake: IV 195 0.9 65 Heparin Sodium,Porcine/ 130 D5w Pmx 25,000 unit In Dextrose/Water 1 500ml. bag @ 12 UNITS/KG/HR 20. 13 mls/hr IV .Q24H [facility] Rx #:[id number] Intake, IV Titration 159.027 Amount Heparin Sodium,Porcine/ 159.027 D5w Pmx 25,000 unit In Dextrose/Water 1 500ml. bag @ 12 UNITS/KG/HR 20. 13 mls/hr IV .Q24H [facility] Rx #:[id number] Output: Urine 1700 Other: Voiding Method Toilet Toilet Urinal Urinal # Voids 3 Weight 84.9 kg The patient appeared well nourished and normally developed. The patient was noted to be in respiratory distress even at rest. He was tachypneic and he was having labored breathing and audible wheezes can be appreciated Vital signs as documented. Head exam is unremarkable. No scleral icterus or corneal arcus noted. Neck is without jugular venous distension, thyromegaly, or carotid bruits. Carotid upstrokes are brisk bilaterally. Lungs are showing diffuse expiratory wheezes throughout the lung his bilaterally and prolongation of expiratory phase of breathing.. Cardiac exam reveals the PMI to be normally sized and situated. Rhythm is regular. First and second heart sounds normal. No murmurs, rubs or gallops. Abdominal exam reveals normal bowel sounds, no masses , no organomegaly and no aortic enlargement. Extremities are nonedematous and both femoral and pedal pulses are diminished Results - Laboratory Findings CBC and BMP: 12/22/16 04:06 12/22/16 11:53 ABG ABG pH 7.45 (7.35-7.45) 12/22/16 11:26 ABG pCO2 35 mmHg (35-45) 12/22/16 11:26 ABG pO2 61 mmHg (83-108) L 12/22/16 11:26 ABG O2 Saturation 93.0 % (94-97) L 12/22/16 11:26 PT/INR, D-dimer PT 10.5 sec (9.0-12.0) 12/21/16 19:00 INR 1.0 (<1.1) 12/21/16 19:00 Abnormal lab findings: Abnormal Labs 12/22/16 12/22/16 12/22/16 02:53 04:06 04:06 WBC 3.6 L RBC 3.37 L Hgb 10.9 L Hct 32.7 L Plt Count 145 L Lymphocytes # 0.7 L ABG pO2 ABG Total CO2 ABG O2 Saturation POC Glucose (mg/dL) Plasma Lactic Acid Kvng 0.6 L Troponin I 0.063 H* Urine Blood Urine RBC Urine Bacteria Hyaline Casts Urine Mucus 12/22/16 12/22/16 12/22/16 06:58 11:26 11:40 WBC RBC Hgb Hct Plt Count Lymphocytes # ABG pO2 61 L ABG Total CO2 25 H ABG O2 Saturation 93.0 L POC Glucose (mg/dL) 143 H Plasma Lactic Acid Kvng Troponin I 0.089 H* Urine Blood Urine RBC Urine Bacteria Hyaline Casts Urine Mucus 12/22/16 11:45 WBC RBC Hgb Hct Plt Count Lymphocytes # ABG pO2 ABG Total CO2 ABG O2 Saturation POC Glucose (mg/dL) Plasma Lactic Acid Kvng Troponin I Urine Blood Large H Urine RBC 99 H Urine Bacteria Rare H Hyaline Casts 6 H Urine Mucus Rare H - Diagnostic Findings Chest x-ray: image reviewed Assessment and Plan Plan: Assessment 1 acute COPD exacerbation/acute bronchitis. 2 acute shortness of breath mainly due to COPD exacerbation with possibly a component of CHF 3 coronary artery disease with previous myocardial infarction 4 severe peripheral vascular disease and history of claudication with previous iliac stents 5 alcoholism 6 smoker 7 BPH 8 minor troponin leak without any EKG changes 9 chronic back pain 10 right bundle branch block pattern Plan The patient to the intensive care unit. Start him on a BiPAP at a pressure of 12 over 5 cm of water and titrated FiO2 to maintain a saturation above 90%. Start the patient on DuoNeb nebulized treatments every 4 hours around the clock. Start the patient Pulmicort and Perforomist neb last treatment twice a day. I recently Medrol 60 every 6. Continue IV heparin. Echocardiogram. Monitor cardiac enzymes. Cardiology consultation. Lasix to optimize the volume balance. Echocardiogram today. We will continue to follow. Also watch for any signs of delirium tremens knowing that the patient has history of alcoholism.
[2016-12-22] MEDS: BUDESONIDE 1 MG/2 ML NEBU INHALATION SCH (20:26)
[2016-12-22] MEDS: FORMOTEROL FUMARATE 20 MCG/2 ML NEBU INHALATION SCH (20:26)
[2016-12-22] MEDS: ATORVASTATIN 80 MG TAB PO SCH (22:01)
[2016-12-23] MEDS: ASPIRIN 325 MG TAB PO SCH ×2 (00:36→08:47)
[2016-12-23] MEDS: methylPREDNISolone SOD SUCCI 125 MG/2 ML VIAL IV SCH ×5 (00:36→23:07)
[2016-12-23] MEDS: IPRATROPIUM-ALBUTEROL 3 ML NEB INHALATION SCH ×5 (03:35→20:39)
[2016-12-23 05:11] LABS: Basophils % (A) 0 %; Eosinophils % (A) 0 %; HGB 11.3 gm/dL (13.0-17.5); Luc # (Auto) 0.16; Luc % (Auto) 3; Lymphocytes # (A) 0.8 k/uL (1.0-4.8); Lymphocytes % (A) 14 %; MCH 33.2 pg (25.0-35.0); MCHC 34.2 g/dL (31.0-37.0); MCV 97.2 fL (80.0-100.0); Mean Platelet Volume 7.1; Monocytes # (A) 0.1 k/uL (0-1.0); Monocytes % (A) 3 %; Neutrophils # (A) 4.3 k/uL (1.3-7.7); Neutrophils % (A) 79 %; Poikilocytosis Slight; RDW 14.3 % (11.5-15.5); WBC 5.5 k/uL (3.8-10.6); WBC (Perox) 5.64
[2016-12-23 05:39] LABS: Anion Gap 6 mmol/L; Blood Urea Nitrogen 17 mg/dL (9-20); Calcium 8.1 mg/dL (8.4-10.2); Carbon Dioxide 30 mmol/L (22-30); Chloride 98 mmol/L (98-107); Glucose 183 mg/dL (74-99); Magnesium 1.9 mg/dL (1.6-2.3); Non-African American GFR(MDRD) >60 (>60 ml/min/1.73 sqM); Potassium 3.8 mmol/L (3.5-5.1); Sodium 134 mmol/L (137-145)
[2016-12-23] MEDS ORDERED: POTASSIUM CHLORIDE ER 20 MEQ TAB.ER PO SCH ×2 (06:00→20:00)
[2016-12-23] MEDS: MAGNESIUM SULFATE-D5W PMX 1 GM in DEXTROSE/WATER 1 100ML.BAG IVPB SCH ×2 (06:09→07:39)
--- NOTE | 2016-12-23 08:00 | XR ---
EXAMINATION TYPE: XR chest 1V portable DATE OF EXAM: 12/23/2016 6:43 AM CLINICAL HISTORY: Difficulty breathing progress study. TECHNIQUE: Single AP portable upright view of the chest is obtained. COMPARISON: Chest x-ray from one day earlier FINDINGS: Cardiac silhouette size is stable and mildly enlarged with atherosclerotic thoracic aorta. Underlying emphysematous changes redemonstrated. There is new right greater than left bibasilar line ar atelectasis and/or infiltrate. Suspect new tiny bilateral pleural effusions, right greater than le ft. No pneumothorax is seen bilaterally. Osseous structures are intact. IMPRESSION: Chronic emphysematous change and mild cardiomegaly with new right greater than left tiny bilateral pleural effusions and right greater than left bibasilar linear atelectasis and/or infiltrat e.
[2016-12-23] MEDS: FORMOTEROL FUMARATE 20 MCG/2 ML NEBU INHALATION SCH ×2 (08:25→20:39)
[2016-12-23] MEDS: BUDESONIDE 1 MG/2 ML NEBU INHALATION SCH ×2 (08:25→20:39)
[2016-12-23] MEDS: CLOPIDOGREL 75 MG TAB PO SCH (08:47)
[2016-12-23] MEDS: FAMOTIDINE 20 MG TAB PO SCH ×2 (08:47→20:37)
[2016-12-23] MEDS: FINASTERIDE 5 MG TAB PO SCH (08:47)
[2016-12-23] MEDS: CARVEDILOL 3.125 MG TAB PO SCH ×2 (08:47→20:37)
[2016-12-23] MEDS: NITROGLYCERIN OINT 1 INCH/GM PACKET TOPICAL SCH ×3 (08:48→16:04)
--- NOTE | 2016-12-23 09:04 | P.PN ---
Subjective Principal diagnosis: Acute respiratory failure This is a pleasant 61-year-old gentleman who I follow in the office as an outpatient regarding PAD but the patient follows with Dr. Guillory regarding hypertension and dyslipidemia presented to the hospital with dyspnea. According to him, he was in his usual state of health until about 2 days ago when he started experiencing slowly progressive exertional dyspnea associated with orthopnea and PND. The patient stated that he was not able to sleep well during the night because of the shortness of breath which was associated with cough. He did not experience any chest pain or chest discomfort. He did not notice any bilateral lower extremities edema. As a matter of fact I saw the patient in the office about a week ago and he was asymptomatic from the cardiovascular standpoint of view. Unfortunately he continues to smoke but he stated that he cut down on smoking significantly. The chest x-ray showed findings consistent with CHF as well as COPD. The BNP was checked and came in to be more than 2000. Initially the patient was started on Lasix IV but the shortness of breath was getting worse and I put the patient on Lasix drip. The cardiac enzymes were checked and came in to be slightly abnormal which I do think that is related to hypoxia and sinus tachycardia. The patient was transferred to the intensive care unit yesterday. I'll follow-up with him today, he seems to be doing better. The shortness of breath has improved. He still on 10 L oxygen at this point. The physical examination is definitely better than yesterday with less crackles and less wheezing. I am going to keep the patient on Lasix drip for additional 24 hours. I will follow-up with the echocardiogram. Objective - Vital Signs Vital signs: Vital Signs Temp 97.8 F 12/23/16 08:00 Pulse 93 12/23/16 08:00 Resp 26 H 12/23/16 08:00 BP 108/74 12/23/16 08:00 Pulse Ox 91 L 12/23/16 08:00 Intake & Output 12/22/16 12/23/16 12/23/16 18:59 06:59 18:59 Intake Total 847.264 3586.672 413.811 Output Total 1275 1275 430 Balance -691.455 -232.328 -16.189 Weight 84.9 kg 84.3 kg Intake: IV 162.5 55 37.3 0.9 35 55 5 Heparin Sodium,Porcine/ 127.5 32.3 D5w Pmx 25,000 unit In Dextrose/Water 1 500ml. bag @ 12 UNITS/KG/HR 20. 13 mls/hr IV .Q24H [facility] Rx #:[id number] Intake, IV Titration 421.045 267.672 376.511 Amount Furosemide 250 mg In 25 5 Sodium Chloride 0.9% 225 ml @ 5 MG/HR 5 mls/hr IVP .Q24H [facility] Rx#:[id number] Heparin Sodium,Porcine/ 396.045 167.672 271.511 D5w Pmx 25,000 unit In Dextrose/Water 1 500ml. bag @ 12 UNITS/KG/HR 20. 13 mls/hr IV .Q24H [facility] Rx #:[id number] Magnesium Sulfate-D5w Pmx 100 100 1 gm In Dextrose/Water 1 100ml.bag @ 100 mls/hr IVPB Q1H [facility] Rx#: [id number] Oral 720 Output: Urine 1275 1275 430 Other: Voiding Method Indwelling Catheter Indwelling Catheter # Voids 3 # Bowel Movements 0 - Constitutional General appearance: Present: no acute distress - Respiratory Respiratory: bilateral: diminished, wheezing - Cardiovascular Rhythm: regular Heart sounds: normal: S1, S2 - Labs CBC & Chem 7: 12/23/16 03:59 12/23/16 03:59 Labs: Abnormal Lab Results - Last 24 Hours (Table) 12/22/16 12/22/16 12/22/16 Range/Units 11:26 11:40 11:45 RBC (4.30-5.90) m/uL Hgb (13.0-17.5) gm/dL Hct (39.0-53.0) % Lymphocytes # (1.0-4.8) k/uL APTT (22.0-30.0) sec ABG pO2 61 L (83-108) mmHg ABG Total CO2 25 H (19-24) mmol/L ABG O2 Saturation 93.0 L (94-97) % Sodium (137-145) mmol/L Glucose (74-99) mg/dL POC Glucose (mg/dL) 143 H (75-99) mg/dL Calcium (8.4-10.2) mg/dL Urine Blood Large H (Negative) Urine RBC 99 H (0-5) /hpf Urine Bacteria Rare H (None) /hpf Hyaline Casts 6 H (0-2) /lpf Urine Mucus Rare H (None) /hpf 12/22/16 12/22/16 12/23/16 Range/Units 14:30 23:18 03:59 RBC 3.40 L (4.30-5.90) m/uL Hgb 11.3 L (13.0-17.5) gm/dL Hct 33.0 L (39.0-53.0) % Lymphocytes # 0.8 L (1.0-4.8) k/uL APTT 40.2 H 43.0 H (22.0-30.0) sec ABG pO2 (83-108) mmHg ABG Total CO2 (19-24) mmol/L ABG O2 Saturation (94-97) % Sodium (137-145) mmol/L Glucose (74-99) mg/dL POC Glucose (mg/dL) (75-99) mg/dL Calcium (8.4-10.2) mg/dL Urine Blood (Negative) Urine RBC (0-5) /hpf Urine Bacteria (None) /hpf Hyaline Casts (0-2) /lpf Urine Mucus (None) /hpf 12/23/16 12/23/16 Range/Units 03:59 03:59 RBC (4.30-5.90) m/uL Hgb (13.0-17.5) gm/dL Hct (39.0-53.0) % Lymphocytes # (1.0-4.8) k/uL APTT 49.4 H (22.0-30.0) sec ABG pO2 (83-108) mmHg ABG Total CO2 (19-24) mmol/L ABG O2 Saturation (94-97) % Sodium 134 L (137-145) mmol/L Glucose 183 H (74-99) mg/dL POC Glucose (mg/dL) (75-99) mg/dL Calcium 8.1 L (8.4-10.2) mg/dL Urine Blood (Negative) Urine RBC (0-5) /hpf Urine Bacteria (None) /hpf Hyaline Casts (0-2) /lpf Urine Mucus (None) /hpf Microbiology - Last 24 Hours (Table) 12/22/16 04:12 Blood Culture - Preliminary Blood No Growth after 24 hours 12/22/16 11:45 Urine Culture - Preliminary Urine,Catheterized Assessment and Plan Plan: assessment #1 acute hypoxic respiratory failure #2 congestive heart failure exacerbation and known if it's due to systolic or diastolic #3 COPD exacerbation #4 hypertension #5 dyslipidemia #6 PAD Plan #1 continue the Lasix drip #2 ICU for additional 24 hours #3 monitor the kidney function and electrolytes #4 obtain an echocardiogram was Doppler #5 continue the aspirin and statin #6 follow-up with the patient
[2016-12-23 10:45] VITALS: BMI 25.2
[2016-12-23] MEDS: FUROSEMIDE 250 MG in SODIUM CHLORIDE 0.9% 225 ML IVP SCH (12:10)
[2016-12-23] MEDS: HEPARIN SODIUM,PORCINE/D5W PMX 25,000 UNIT in DEXTROSE/WATER 1 500ML.BAG IV SCH (12:11)
[2016-12-23] MEDS: THIAMINE 100 MG TAB PO SCH ×2 (12:12→17:51)
[2016-12-23] MEDS: LORazepam 0.5 MG TAB PO SCH ×2 (12:12→20:40)
[2016-12-23] MEDS: MULTIVITAMINS, THERA 1 EACH TAB PO SCH (12:12)
--- NOTE | 2016-12-23 14:28 | P.PN ---
Subjective Principal diagnosis: Shortness of breath secondary to COPD and just of heart failure. A 61-year-old male patient was admitted to the hospital today and I was asked to evaluate this patient immediately as the patient was noted to be in quite asked her distress. I saw the patient and it was obvious that he was struggling with his breathing, he was actively bronchospastic and wheezy with prolongation of the expiratory phase of breathing and he was also tachypneic with a breathing rate of more than 30. Immediately the patient got moved to the intensive care unit. Her blood gases was done that showed no significant respiratory acidosis. The chest x-ray showed increased interstitial markings bilaterally and the patient was already started on diuretics. He denied having any chest pain. He is known to have coronary artery disease and extensive peripheral vascular disease. She has had previous Vascular intervention and stenting in lower extremities bilaterally for treatment of claudication. He is a chronic smoker. The proBNP level is modestly elevated. Troponin was slightly abnormal and the patient was started on IV heparin and cardiology evaluation is to follow. The echocardiogram was also ordered to assess his underlying LV function. He denies having any chest pain. No mental status change. No confusion. He had a congested cough. No hemoptysis. No pleurisy. No history of DVT. No pulmonary embolism. No official diagnosis of COPD and the patient has not been on inhalers or bronchodilators on outpatient basis. The patient is a chronic smoker. He also has an issue with alcoholism. Patient was reevaluated today on 12/23/2016, remains on Lasix drip at 5 mg per hour, patient is in negative fluid balance about 900 mL so far since yesterday. Patient is also on heparin. Overall the patient is feeling better compared to how she felt yesterday. Less short of breath. Chest x-ray continues to suggest interstitial edema, patient continues to have crackles at the bases bilaterally. CBC is relatively unremarkable. PTT is therapeutic, basic metabolic profile is relatively normal. The blood sugar is 183. Objective - Vital Signs Vital signs: Vital Signs Temp 98.7 F 12/23/16 12:00 Pulse 84 12/23/16 13:00 Resp 22 12/23/16 13:00 BP 104/65 12/23/16 13:00 Pulse Ox 95 12/23/16 13:00 Intake & Output 12/22/16 12/23/16 12/23/16 18:59 06:59 18:59 Intake Total 650.944 3654.672 789.910 Output Total 1275 1275 1040 Balance -691.455 -232.328 -250.090 Weight 84.9 kg 84.3 kg 84.3 kg Intake: IV 162.5 55 159.2 0.9 35 55 30 Heparin Sodium,Porcine/ 127.5 129.2 D5w Pmx 25,000 unit In Dextrose/Water 1 500ml. bag @ 12 UNITS/KG/HR 20. 13 mls/hr IV .Q24H [facility] Rx #:[id number] Intake, IV Titration 421.045 267.672 630.710 Amount Furosemide 250 mg In 25 149.917 Sodium Chloride 0.9% 225 ml @ 5 MG/HR 5 mls/hr IVP .Q24H [facility] Rx#:[id number] Heparin Sodium,Porcine/ 396.045 167.672 380.793 D5w Pmx 25,000 unit In Dextrose/Water 1 500ml. bag @ 12 UNITS/KG/HR 20. 13 mls/hr IV .Q24H [facility] Rx #:[id number] Magnesium Sulfate-D5w Pmx 100 100 1 gm In Dextrose/Water 1 100ml.bag @ 100 mls/hr IVPB Q1H [facility] Rx#: [id number] Oral 720 Output: Urine 1275 1275 1040 Other: Voiding Method Indwelling Catheter Indwelling Catheter Indwelling Catheter # Voids 3 3 # Bowel Movements 0 0 - Exam The patient appeared well nourished and normally developed. The patient was noted to be in respiratory distress even at rest. He was tachypneic and he was having labored breathing and audible wheezes can be appreciated Vital signs as documented. Head exam is unremarkable. No scleral icterus or corneal arcus noted. Neck is without jugular venous distension, thyromegaly, or carotid bruits. Carotid upstrokes are brisk bilaterally. Lungs showing mostly crackles at the bases,, no rhonchi no wheezes. Cardiac exam reveals the PMI to be normally sized and situated. Rhythm is regular. First and second heart sounds normal. No murmurs, rubs or gallops. Abdominal exam reveals normal bowel sounds , no masses, no organomegaly and no aortic enlargement. Extremities are nonedematous and both femoral and pedal pulses are diminished - Labs CBC & Chem 7: 12/23/16 03:59 12/23/16 03:59 Labs: Abnormal Lab Results - Last 24 Hours (Table) 12/22/16 12/22/16 12/23/16 Range/Units 14:30 23:18 03:59 RBC 3.40 L (4.30-5.90) m/uL Hgb 11.3 L (13.0-17.5) gm/dL Hct 33.0 L (39.0-53.0) % Lymphocytes # 0.8 L (1.0-4.8) k/uL APTT 40.2 H 43.0 H (22.0-30.0) sec Sodium (137-145) mmol/L Glucose (74-99) mg/dL Calcium (8.4-10.2) mg/dL 12/23/16 12/23/16 Range/Units 03:59 03:59 RBC (4.30-5.90) m/uL Hgb (13.0-17.5) gm/dL Hct (39.0-53.0) % Lymphocytes # (1.0-4.8) k/uL APTT 49.4 H (22.0-30.0) sec Sodium 134 L (137-145) mmol/L Glucose 183 H (74-99) mg/dL Calcium 8.1 L (8.4-10.2) mg/dL Microbiology - Last 24 Hours (Table) 12/22/16 11:45 Urine Culture - Final Urine,Catheterized 12/22/16 04:12 Blood Culture - Preliminary Blood No Growth after 24 hours Assessment and Plan Plan: 1 acute COPD exacerbation/acute bronchitis. 2 acute shortness of breath mainly due to COPD exacerbation with possibly a component of CHF 3 coronary artery disease with previous myocardial infarction 4 severe peripheral vascular disease and history of claudication with previous iliac stents 5 alcoholism 6 smoker 7 BPH 8 minor troponin leak without any EKG changes 9 chronic back pain 10 right bundle branch block pattern Recommendation: Continue Lasix drip, continue to titrate the FiO2 accordingly, continue bronchodilators, keep patient in the ICU, more cardiac workup including echocardiogram are pending. We'll continue to follow. Time with Patient: Less than 30
[2016-12-23 17:25] LABS: Magnesium 2.1 mg/dL (1.6-2.3); Potassium 3.8 mmol/L (3.5-5.1)
--- NOTE | 2016-12-23 18:14 | P.PN ---
Subjective Principal diagnosis: Shortness of breath Patient is 61-year-old white male, patient of Dr. Silva in the outpatient setting, with medical history significant for COPD, coronary artery disease, dyslipidemia, severe peripheral vascular disease and chronic claudication, chronic back pain, BPH, nicotine dependence, and alcohol abuse. Patient presented to the emergency department with complaints of shortness of breath. Onset of symptoms 2 days. Symptoms are exacerbated with exertion and lying flat. Patient also complained of nonproductive cough and some chest discomfort. No history of leg swelling or leg pain. Prior to patient presenting to the ER, he had presented to [facility] where he is given a breathing treatment without improvement of symptoms and chest x-ray there reportedly has concerns for fluid on the lungs. Chest x-ray in the emergency department with evidence of COPD and congestive heart failure. BNP elevated at 2040. Troponins were slightly elevated and patient was started on a IV heparin drip with consult to cardiology. Patient was found to be in mild respiratory distress and started on IV Lasix with consult to Dr. Mcnair for pulmonary management. Patient was admitted to the intensive care unit for close monitoring. Upon exam, patient complains of a congestive cough. Patient reports shortness of breath with minimal activity. Denies chills, fevers, nausea, vomiting, chest pain, abdominal pain, leg swelling, or leg pain. Urine output adequate. Patient is maintained on IV Lasix at 5 mg per hour. Patient is in a negative fluid balance of about 900 mL since yesterday. Patient remains on IV heparin. Chest x-ray continues to show interstitial edema. Echocardiogram with Doppler pending. Objective - Vital Signs Vital signs: Vital Signs Temp 98.2 F 12/23/16 15:00 Pulse 92 12/23/16 17:00 Resp 30 H 12/23/16 17:00 BP 109/67 12/23/16 17:00 Pulse Ox 93 L 12/23/16 17:00 Intake & Output 12/22/16 12/23/16 12/23/16 18:59 06:59 18:59 Intake Total 824.485 8000.672 1054.910 Output Total 1275 1275 1989 Balance -691.455 -232.328 -935.090 Weight 84.9 kg 84.3 kg 84.3 kg Intake: IV 162.5 55 174.2 0.9 35 55 45 Heparin Sodium,Porcine/ 127.5 129.2 D5w Pmx 25,000 unit In Dextrose/Water 1 500ml. bag @ 12 UNITS/KG/HR 20. 13 mls/hr IV .Q24H [facility] Rx #:[id number] Intake, IV Titration 421.045 267.672 630.710 Amount Furosemide 250 mg In 25 149.917 Sodium Chloride 0.9% 225 ml @ 5 MG/HR 5 mls/hr IVP .Q24H [facility] Rx#:[id number] Heparin Sodium,Porcine/ 396.045 167.672 380.793 D5w Pmx 25,000 unit In Dextrose/Water 1 500ml. bag @ 12 UNITS/KG/HR 20. 13 mls/hr IV .Q24H [facility] Rx #:[id number] Magnesium Sulfate-D5w Pmx 100 100 1 gm In Dextrose/Water 1 100ml.bag @ 100 mls/hr IVPB Q1H [facility] Rx#: [id number] Oral 720 250 Output: Urine 1275 1275 1990 Other: Voiding Method Indwelling Catheter Indwelling Catheter Indwelling Catheter # Voids 3 3 # Bowel Movements 0 0 - Exam GENERAL: Pt awake and alert, well-appearing, well-nourished, and in no acute distress. HEAD: Atraumatic, normocephalic. EYES: Pupils equal, round, and reactive to light, extraocular movements intact, sclera anicteric, conjunctiva are normal. ENT: Moist mucous membranes. NECK:Supple without lymphadenopathy or JVD. LUNGS: Breath sounds diminished with faint crackles at posterior bases. Nonproductive cough. HEART: Heart S1, S2, no S3 or S4. Regular rate and rhythm. No murmurs, rubs or gallops. ABDOMEN: Soft, nontender, nondistended, normoactive bowel sounds. No guarding, no rebound. No masses or organomegaly appreciated. EXTREMITIES: 1 + peripheral pulses. No edema, clubbing or cyanosis. No calf tenderness. NEUROLOGICAL: Pt oriented x 3. Cranial nerves II through XII grossly intact. Strength and sensation grossly intact. PSYCH: Normal mood, normal affect. SKIN: Warm, dry, intact. Normal turgor. No rashes or lesions. - Labs CBC & Chem 7: 12/23/16 03:59 12/23/16 16:53 Labs: Abnormal Lab Results - Last 24 Hours (Table) 04/30/17 05/01/17 05/01/17 Range/Units 23:18 03:59 03:59 RBC 3.40 L (4.30-5.90) m/uL Hgb 11.3 L (13.0-17.5) gm/dL Hct 33.0 L (39.0-53.0) % Lymphocytes # 0.8 L (1.0-4.8) k/uL APTT 43.0 H (22.0-30.0) sec Sodium 134 L (137-145) mmol/L Glucose 183 H (74-99) mg/dL Calcium 8.1 L (8.4-10.2) mg/dL 12/23/16 Range/Units 03:59 RBC (4.30-5.90) m/uL Hgb (13.0-17.5) gm/dL Hct (39.0-53.0) % Lymphocytes # (1.0-4.8) k/uL APTT 49.4 H (22.0-30.0) sec Sodium (137-145) mmol/L Glucose (74-99) mg/dL Calcium (8.4-10.2) mg/dL Microbiology - Last 24 Hours (Table) 12/22/16 11:45 Urine Culture - Final Urine,Catheterized 12/22/16 04:12 Blood Culture - Preliminary Blood No Growth after 24 hours Assessment and Plan Plan: Impression and plan: 1. Acute exacerbation of COPD. Continue supplemental oxygen to keep oxygen saturation greater than 92, continue Solu-Medrol 60 mg IV every 6 hours, continue Perforomist 20 g inhalation twice a day, continue Pulmicort. 2. Acute hypoxic respiratory failure suspect secondary to COPD exacerbation and acute congestive heart failure, unknown type. Continue IV Lasix at 5 mg an hour. Continue to monitor renal function. Repeat chest x-ray in a.m. 3. Coronary artery disease with previous myocardial infarction. Continue aspirin. 4. Severe peripheral arterial disease and history of claudication with previous iliac stents. Continue Plavix. 5. BPH. Continue Proscar 5 mg daily.. 6. Elevated troponin leak without ischemic changes to EKG. 7. Chronic back pain. Continue tramadol 50 mg by mouth every 6 hours when necessary. 8. Nicotine abuse. Smoking cessation encouraged. 9. Alcohol abuse. Continue CIWA protocol. Continue vitamin B12 100 mg by mouth twice a day. 10. Hypertension. Continue Coreg 3.125 mg by mouth twice a day. 11. Dyslipidemia. Continue Lipitor 80 mg by mouth at bedtime. 12. GERD. Continue Pepcid 20 mg by mouth twice a day. 13. DVT prophylaxis. Patient is on IV heparin. 14. GI prophylaxis. Continue Pepcid. Continue to monitor patient. Home medications of been reviewed and resumed as appropriate. Continue to follow with consultants. Repeat CBC and BMP in a.m. The above impression and plan have been discussed and directed by Dr. Mcnair. Ervin RILEY acting as scribe for Dr. Mcnair.
--- NOTE | 2016-12-23 18:57 | P.HPIM ---
History of Present Illness H&P Date: 12/22/16 Chief Complaint: PATRICIA Paul is a 61y/o wm well known to me. He c/o 2 day h/o increased SOB and came to the ER when it was intolerable, He is a a smoker and has been for years.He states wind flat media shortness of breath Worse.Any emergency room, he was given Lasix. He was admitted to the floor with a diagnosis of CHF.There appears to be overlying COPD as well.While on the floor, he became more shorter breath, And was started on solumedrol and sent to intensive care unit.he is now more comfortable. Review of Systems All systems: negative Past Medical History Past Medical History: Chest Pain / Angina, Myocardial Infarction ([place]), Vascular Disorder Additional Past Medical History / Comment(s): COPD, coronary artery disease, severe peripheral vascular disease and chronic claudication, chronic back pain, chronic smoker, alcoholism, BPH Last Myocardial Infarction Date:: SILENT History of Any Multi-Drug Resistant Organisms: None Reported Past Surgical History: Tonsillectomy Additional Past Surgical History / Comment(s): ANGIOGRAM 06/28/16, iliac stents placed bilaterally 07-17-[address] Oliver Past Anesthesia/Blood Transfusion Reactions: No Reported Reaction Past Psychological History: Anxiety, Depression Smoking Status: Current every day smoker Past Alcohol Use History: Daily Additional Past Alcohol Use History / Comment(s): HAS SMOKED FOR 50+ YRS, HAS REDUCED FROM 3PP TO 1PP. DRINKS ABOUT A PINT TO A FIFTH OF ALCOHOL PER DAY. IS TRYING VERY HARD TO QUIT BOTH. USING NICOTINE PATCH Past Drug Use History: None Reported - Past Family History Mother Family Medical History: CVA/TIA Father Family Medical History: CVA/TIA Medications and Allergies Home Medications Medication Instructions Recorded Confirmed Type Carvedilol [Coreg] 3.125 mg PO BID 06/27/16 12/21/16 History Finasteride [Proscar] 5 mg PO DAILY 07/17/16 12/21/16 History LORazepam [Ativan] 0.5 mg PO Q6H PRN 07/17/16 12/21/16 History traMADol HCL [Ultram] 50 mg PO Q6HR PRN 12/01/16 12/21/16 History Allergies Allergy/AdvReac Type Severity Reaction Status Date / Time alendronate sodium Allergy Rash/Hives Verified 12/21/16 19:05 [From Fosamax] codeine AdvReac "spacey" Verified 12/21/16 19:05 Physical Exam Vitals: Vital Signs Temp Pulse Resp BP Pulse Ox 12/23/16 18:00 95 28 H 87/53 94 L 12/23/16 17:30 96 32 H 109/67 94 L 12/23/16 17:00 92 30 H 109/67 93 L 12/23/16 16:42 93 12/23/16 16:31 88 96 12/23/16 16:30 91 33 H 94 L 12/23/16 16:00 92 32 H 118/72 93 L 12/23/16 15:30 95 25 H 118/72 95 12/23/16 15:00 98.2 F 92 23 118/72 94 L 12/23/16 14:30 92 28 H 105/63 95 12/23/16 14:00 87 27 H 105/63 96 12/23/16 13:30 93 32 H 112/68 97 12/23/16 13:00 84 22 104/65 95 12/23/16 12:30 84 28 H 104/65 94 L 12/23/16 12:00 98.7 F 85 22 104/65 96 12/23/16 11:00 87 24 89/59 95 12/23/16 10:00 92 22 107/58 92 L 12/23/16 09:00 96 28 H 103/48 92 L 12/23/16 08:45 91 12/23/16 08:31 90 12/23/16 08:30 90 12/23/16 08:25 93 26 H 12/23/16 08:00 97.8 F 93 26 H 108/74 91 L 12/23/16 07:00 90 52 H 118/79 94 L 12/23/16 06:00 92 26 H 117/71 89 L 12/23/16 05:00 89 21 110/71 93 L 12/23/16 04:00 97.8 F 86 24 106/73 91 L 12/23/16 03:00 87 22 109/70 88 L 12/23/16 02:00 85 20 94/62 92 L 12/23/16 01:00 92 23 112/71 94 L 12/23/16 00:00 98.9 F 94 22 82/58 88 L 12/22/16 23:01 90 24 103/64 92 L 12/22/16 23:00 92 21 103/64 94 L 12/22/16 22:00 98 94 L 12/22/16 21:00 96 115/69 91 L 12/22/16 20:48 91 12/22/16 20:40 92 12/22/16 20:28 96 12/22/16 20:00 98.9 F 92 21 95/56 92 L 12/22/16 19:00 91 90/50 92 L Intake and Output 12/23/16 12/23/16 12/23/16 06:59 14:59 22:59 Intake Total 210.719 9553.910 10 Output Total 875 1240 860 Balance -191.283 -195.090 -850 Intake: IV 40 164.2 10 0.9 40 35 10 Heparin Sodium,Porcine/ 129.2 D5w Pmx 25,000 unit In Dextrose/Water 1 500ml. bag @ 12 UNITS/KG/HR 20. 13 mls/hr IV .Q24H [facility] Rx #:[id number] Intake, IV Titration 163.717 630.710 Amount Furosemide 250 mg In 149.917 Sodium Chloride 0.9% 225 ml @ 5 MG/HR 5 mls/hr IVP .Q24H [facility] Rx#:[id number] Heparin Sodium,Porcine/ 63.717 380.793 D5w Pmx 25,000 unit In Dextrose/Water 1 500ml. bag @ 12 UNITS/KG/HR 20. 13 mls/hr IV .Q24H [facility] Rx #:[id number] Magnesium Sulfate-D5w Pmx 100 100 1 gm In Dextrose/Water 1 100ml.bag @ 100 mls/hr IVPB Q1H [facility] Rx#: [id number] Oral 480 250 Output: Urine 875 1240 860 Other: Voiding Method Indwelling Catheter Indwelling Catheter Indwelling Catheter # Voids 3 3 # Bowel Movements 0 0 0 Weight 84.3 kg 84.3 kg 84.3 kg Patient Weight 12/24/16 06:59 Weight 84.3 kg GENERAL: Pt awake , but easily falling asleep well-nourished, and in no acute distress. HEAD: Atraumatic, normocephalic. EYES: Pupils equal, round, and reactive to light, extraocular movements intact, sclera anicteric, conjunctiva are normal. ENT: Moist mucous membranes. NECK:Supple without lymphadenopathy or JVD. LUNGS: Breath sounds diminished with faint crackles at posterior bases. Nonproductive cough. HEART: Heart S1, S2, no S3 or S4. Regular rate and rhythm. No murmurs, rubs or gallops. ABDOMEN: Soft, nontender, nondistended, normoactive bowel sounds. No guarding, no rebound. No masses or organomegaly appreciated. EXTREMITIES: 1 + peripheral pulses. No edema, clubbing or cyanosis. No calf tenderness. NEUROLOGICAL: Pt oriented x 3. Cranial nerves II through XII grossly intact. Strength and sensation grossly intact. PSYCH: Normal mood, normal affect. SKIN: Warm, dry, intact. Normal turgor. No rashes or lesions. Results CBC & Chem 7: 12/23/16 03:59 12/23/16 16:53 Labs: Abnormal Lab Results - Last 24 Hours (Table) 12/22/16 12/23/16 12/23/16 Range/Units 23:18 03:59 03:59 RBC 3.40 L (4.30-5.90) m/uL Hgb 11.3 L (13.0-17.5) gm/dL Hct 33.0 L (39.0-53.0) % Lymphocytes # 0.8 L (1.0-4.8) k/uL APTT 43.0 H (22.0-30.0) sec Sodium 134 L (137-145) mmol/L Glucose 183 H (74-99) mg/dL Calcium 8.1 L (8.4-10.2) mg/dL 12/23/16 Range/Units 03:59 RBC (4.30-5.90) m/uL Hgb (13.0-17.5) gm/dL Hct (39.0-53.0) % Lymphocytes # (1.0-4.8) k/uL APTT 49.4 H (22.0-30.0) sec Sodium (137-145) mmol/L Glucose (74-99) mg/dL Calcium (8.4-10.2) mg/dL Microbiology - Last 24 Hours (Table) 12/22/16 11:45 Urine Culture - Final Urine,Catheterized 12/22/16 04:12 Blood Culture - Preliminary Blood No Growth after 24 hours Chest x-ray: report reviewed Thrombosis Risk Factor Assmnt - Choose All That Apply Any of the Below Risk Factors Present?: Yes Each Factor Represents 1 point: Age 41-60 years, Obesity (BMI >25), Serious lung disease incl. pneumonia (< 1month) Thrombosis Risk Factor Assessment Total Risk Factor Score: 3 Thrombosis Risk Factor Assessment Level: Moderate Risk Assessment and Plan Plan: 1 Acute exacerbation of COPD. Continue supplemental oxygen to keep oxygen, Solu -Medrol ,Perforomist , Pulmicort. 2. acute congestive heart failure, unknown type. Continue IV Lasix drip 3. Coronary artery disease with previous myocardial infarction. Continue aspirin. 4. peripheral arterial disease:Continue Plavix. 5. BPH. Continue Proscar 5 mg daily.. 6. Elevated troponin: most likely leak without ischemic changes 7. Chronic back pain. Continue tramadol 50 mg by mouth every 6 hours when necessary. 8. Nicotine abuse. Smoking cessation encouraged. patch refused 9. Alcohol abuse. Continue CIWA protocol. Continue vitamin B12 100 mg by mouth twice a day. 10. Hypertension. Continue Coreg 3.125 mg by mouth twice a day. 11. Dyslipidemia. Continue Lipitor 80 mg by mouth at bedtime. 12. GERD. Continue Pepcid 20 mg by mouth twice a day. 13. DVT prophylaxis. Patient is on IV heparin. 14. GI prophylaxis. Continue Pepcid. I will wait on care consultant recommendations. He will be reevaluated in the next 24 hours.
[2016-12-23] MEDS: ATORVASTATIN 80 MG TAB PO SCH (20:37)
[2016-12-23] MEDS: traMADol 50 MG TAB PO PRN (23:10)
[2016-12-23] MEDS: LORazepam 2 MG/ML SYRINGE IV PRN (23:11)
[2016-12-24] MEDS: IPRATROPIUM-ALBUTEROL 3 ML NEB INHALATION SCH ×7 (00:16→20:13)
[2016-12-24] MEDS: NITROGLYCERIN OINT 1 INCH/GM PACKET TOPICAL SCH ×5 (04:20→21:45)
[2016-12-24 04:51] LABS: Basophils % (A) 0 %; CH 32.9; CHCM 33.6; Eosinophils % (A) 0 %; HCT 33.5 % (39.0-53.0); HDW 3.68; HGB 11.6 gm/dL (13.0-17.5); Hypochromasia Slight; Luc # (Auto) 0.32; Luc % (Auto) 4; Lymphocytes # (A) 1.4 k/uL (1.0-4.8); Lymphocytes % (A) 16 %; MCHC 34.7 g/dL (31.0-37.0); Monocytes # (A) 0.3 k/uL (0-1.0); Monocytes % (A) 3 %; Neutrophils # (A) 6.3 k/uL (1.3-7.7); Neutrophils % (A) 76 %; Poikilocytosis Slight; RBC 3.42 m/uL (4.30-5.90); RDW 14.5 % (11.5-15.5); WBC 8.3 k/uL (3.8-10.6); WBC (Perox) 8.33
[2016-12-24 05:03] LABS: ALT 31 U/L (21-72); AST 15 U/L (17-59); Alkaline Phosphatase 76 U/L (38-126); Anion Gap 7 mmol/L; Blood Urea Nitrogen 16 mg/dL (9-20); Calcium 8.3 mg/dL (8.4-10.2); Carbon Dioxide 34 mmol/L (22-30); Chloride 97 mmol/L (98-107); Glucose 138 mg/dL (74-99); Non-African American GFR(MDRD) >60 (>60 ml/min/1.73 sqM); Potassium 3.7 mmol/L (3.5-5.1); Sodium 138 mmol/L (137-145); Total Bilirubin 0.4 mg/dL (0.2-1.3); Total Protein 5.6 g/dL (6.3-8.2)
[2016-12-24] MEDS: HEPARIN SODIUM,PORCINE/D5W PMX 25,000 UNIT in DEXTROSE/WATER 1 500ML.BAG IV SCH (05:46)
[2016-12-24] MEDS: methylPREDNISolone SOD SUCCI 125 MG/2 ML VIAL IV SCH ×3 (06:40→18:57)
[2016-12-24 07:26] LABS: Glucose,Whole Blood 271 mg/dL (75-99)
--- NOTE | 2016-12-24 08:18 | XR ---
EXAMINATION TYPE: XR chest 1V portable DATE OF EXAM: 12/24/2016 6:31 AM Comparison: 12/23/2016 Clinical History: 61 year-old male shortness of breath, follow up Findings: Heart is normal size. Mild elongation of the thoracic aorta. Bilateral hilar prominence suggests enla rgement of the central main pulmonary arteries. Peribronchial cuffing is noted. Strandy areas of atel ectasis in both lower lungs show some interval improvement. No significant pleural effusion. Impression: 1. Peribronchial cuffing. Correlate for bronchitis or chronic asthma, similar to prior exam. 2. Strandy areas of atelectasis in the lower lungs, similar to slightly improved. 3. Possible underlying pulmonary arterial hypertension.
--- NOTE | 2016-12-24 08:47 | P.PN ---
Subjective Principal diagnosis: Acute respiratory failure This is a pleasant 61-year-old gentleman who I follow in the office as an outpatient regarding PAD but the patient follows with Dr. Guillory regarding hypertension and dyslipidemia presented to the hospital with dyspnea. According to him, he was in his usual state of health until about 2 days ago when he started experiencing slowly progressive exertional dyspnea associated with orthopnea and PND. The patient stated that he was not able to sleep well during the night because of the shortness of breath which was associated with cough. He did not experience any chest pain or chest discomfort. He did not notice any bilateral lower extremities edema. The patient was diagnosed with CHF as well as COPD exacerbation. He is feeling better overall. The shortness of breath is a slightly better. He is requiring 6 L of oxygen today and that is down from 10 mL yesterday. He continues to be in normal sinus mechanism with a normal heart rates. I would DC the heparin. I would DC the IV Lasix drip and start him on Lasix 40 mg IV twice a day. Continue monitor the kidney function and electrolytes. Follow-up with the echocardiogram as well. Objective - Vital Signs Vital signs: Vital Signs Temp 98.3 F 12/24/16 04:00 Pulse 86 12/24/16 07:00 Resp 21 12/24/16 07:00 BP 113/79 12/24/16 07:00 Pulse Ox 95 12/24/16 07:00 Intake & Output 12/23/16 12/24/16 12/24/16 18:59 06:59 18:59 Intake Total 1054.910 923 Output Total 2100 1775 125 Balance -1045.090 -852 -125 Weight 84.3 kg 81.8 kg Intake: IV 174.2 100 0.9 45 100 Heparin Sodium,Porcine/ 129.2 D5w Pmx 25,000 unit In Dextrose/Water 1 500ml. bag @ 12 UNITS/KG/HR 20. 13 mls/hr IV .Q24H [facility] Rx #:[id number] Intake, IV Titration 630.710 583 Amount Furosemide 250 mg In 149.917 83 Sodium Chloride 0.9% 225 ml @ 5 MG/HR 5 mls/hr IVP .Q24H [facility] Rx#:[id number] Heparin Sodium,Porcine/ 380.793 500 D5w Pmx 25,000 unit In Dextrose/Water 1 500ml. bag @ 12 UNITS/KG/HR 20. 13 mls/hr IV .Q24H [facility] Rx #:[id number] Magnesium Sulfate-D5w Pmx 100 1 gm In Dextrose/Water 1 100ml.bag @ 100 mls/hr IVPB Q1H [facility] Rx#: [id number] Oral 250 240 Output: Urine 2100 1775 125 Other: Voiding Method Indwelling Catheter Indwelling Catheter # Voids 3 # Bowel Movements 0 - Constitutional General appearance: Present: mild distress - Respiratory Respiratory: bilateral: rales, rhonchi, wheezing - Cardiovascular Rhythm: regular Heart sounds: normal: S1, S2 - Labs CBC & Chem 7: 12/24/16 03:57 12/24/16 04:04 Labs: Abnormal Lab Results - Last 24 Hours (Table) 12/24/16 12/24/16 12/24/16 Range/Units 03:57 03:57 04:04 RBC 3.42 L (4.30-5.90) m/uL Hgb 11.6 L (13.0-17.5) gm/dL Hct 33.5 L (39.0-53.0) % APTT 47.3 H (22.0-30.0) sec Chloride 97 L (98-107) mmol/L Carbon Dioxide 34 H (22-30) mmol/L Glucose 138 H (74-99) mg/dL POC Glucose (mg/dL) (75-99) mg/dL Calcium 8.3 L (8.4-10.2) mg/dL AST 15 L (17-59) U/L Total Protein 5.6 L (6.3-8.2) g/dL Albumin 3.4 L (3.5-5.0) g/dL 12/24/16 Range/Units 07:24 RBC (4.30-5.90) m/uL Hgb (13.0-17.5) gm/dL Hct (39.0-53.0) % APTT (22.0-30.0) sec Chloride (98-107) mmol/L Carbon Dioxide (22-30) mmol/L Glucose (74-99) mg/dL POC Glucose (mg/dL) 271 H (75-99) mg/dL Calcium (8.4-10.2) mg/dL AST (17-59) U/L Total Protein (6.3-8.2) g/dL Albumin (3.5-5.0) g/dL Microbiology - Last 24 Hours (Table) 12/22/16 04:12 Blood Culture - Preliminary Blood No Growth after 48 hours 12/22/16 11:45 Urine Culture - Final Urine,Catheterized Assessment and Plan Plan: assessment #1 acute hypoxic respiratory failure #2 congestive heart failure exacerbation and known if it's due to systolic or diastolic #3 COPD exacerbation #4 hypertension #5 dyslipidemia #6 PAD Plan #1 DC the Lasix drip and start Lasix IV #2 DC the heparin #3 follow-up with the echocardiogram
[2016-12-24] MEDS: CLOPIDOGREL 75 MG TAB PO SCH (09:06)
[2016-12-24] MEDS: CARVEDILOL 3.125 MG TAB PO SCH ×2 (09:06→21:45)
[2016-12-24] MEDS: LORazepam 0.5 MG TAB PO SCH ×2 (09:06→21:53)
[2016-12-24] MEDS: ASPIRIN 325 MG TAB PO SCH (09:06)
[2016-12-24] MEDS: FAMOTIDINE 20 MG TAB PO SCH ×2 (09:06→21:45)
[2016-12-24] MEDS: FINASTERIDE 5 MG TAB PO SCH (09:06)
[2016-12-24] MEDS: BUDESONIDE 1 MG/2 ML NEBU INHALATION SCH ×2 (09:13→19:52)
[2016-12-24] MEDS: FORMOTEROL FUMARATE 20 MCG/2 ML NEBU INHALATION SCH ×2 (09:14→19:52)
[2016-12-24] MEDS: FUROSEMIDE 10 MG/ML 4 ML VIAL IV SCH ×2 (10:02→21:45)
--- NOTE | 2016-12-24 11:53 | ECHOF ---
Referral Reason:CHF MEASUREMENTS -------- HEIGHT: 182.9 cm WEIGHT: 83.9 kg BP: 114/63 RVIDd: 3.8 cm (< 3.3) IVSd: 0.9 cm (0.6 - 1.1) LVIDd: 5.4 cm (3.9 - 5.3) LVPWd: 1.1 cm (0.6 - 1.1) IVSs: 1.5 cm LVIDs: 3.8 cm LVPWs: 1.4 cm Ao Diam: 3.8 cm (2.0 - 3.7) AV Cusp: 2.1 cm (1.5 - 2.6) LA Diam: 2.7 cm (2.7 - 3.8) MV EXCURSION: 20.130 mm (> 18.000) MV EF SLOPE: 84 mm/s (70 - 150) EPSS: 1.0 cm MV E Tom: 1.07 m/s MV DecT: 221 ms MV A Tom: 1.14 m/s MV E/A Ratio: 0.94 RAP: 5.00 mmHg RVSP: 8.15 mmHg FINDINGS -------- Sinus rhythm. This was a technically adequate study. Left ventricular wall thickness is normal. Overall left ventricular systolic function is mild-moderately impaired with, an EF between 40 - 45 %. Basal inferior LV wall motion is hypokinetic. Mid inferior LV wall motion is hypokinetic. The right ventricle is normal in size. The left atrial size is normal. The right atrium is normal in size. Aortic valve is trileaflet and is mildly thickened. The mitral valve leaflets are mildly thickened. There is trace mitral regurgitation. Trace tricuspid regurgitation present. The right ventricular systolic pressure, as measured by Doppler, is 8.15mmHg. The pulmonic valve is normal. The aortic root size is normal. There is no pericardial effusion. CONCLUSIONS -------- 1. Sinus rhythm. 2. Aortic valve is trileaflet and is mildly thickened. 3. The mitral valve leaflets are mildly thickened. 4. There is trace mitral regurgitation. 5. Trace tricuspid regurgitation present. 6. The right ventricular systolic pressure, as measured by Doppler, is 8.15mmHg. 7. The pulmonic valve is normal. 8. The aortic root size is normal. 9. There is no pericardial effusion. 10. This was a technically adequate study. 11. Left ventricular wall thickness is normal. 12. Overall left ventricular systolic function is mild-moderately impaired with, an EF between 40 - 45 %. 13. Basal inferior LV wall motion is hypokinetic. 14. Mid inferior LV wall motion is hypokinetic. 15. The right ventricle is normal in size. 16. The left atrial size is normal. 17. The right atrium is normal in size. CHERRY PICKER OPERATOR: Cyndi Esquivel RDCS
[2016-12-24] MEDS: THIAMINE 100 MG TAB PO SCH ×2 (14:51→14:52)
[2016-12-24] MEDS: MULTIVITAMINS, THERA 1 EACH TAB PO SCH (14:52)
--- NOTE | 2016-12-24 15:37 | P.PN ---
Subjective Principal diagnosis: Shortness of breath secondary to COPD and just of heart failure. A 61-year-old male patient was admitted to the hospital today and I was asked to evaluate this patient immediately as the patient was noted to be in quite asked her distress. I saw the patient and it was obvious that he was struggling with his breathing, he was actively bronchospastic and wheezy with prolongation of the expiratory phase of breathing and he was also tachypneic with a breathing rate of more than 30. Immediately the patient got moved to the intensive care unit. Her blood gases was done that showed no significant respiratory acidosis. The chest x-ray showed increased interstitial markings bilaterally and the patient was already started on diuretics. He denied having any chest pain. He is known to have coronary artery disease and extensive peripheral vascular disease. She has had previous Vascular intervention and stenting in lower extremities bilaterally for treatment of claudication. He is a chronic smoker. The proBNP level is modestly elevated. Troponin was slightly abnormal and the patient was started on IV heparin and cardiology evaluation is to follow. The echocardiogram was also ordered to assess his underlying LV function. He denies having any chest pain. No mental status change. No confusion. He had a congested cough. No hemoptysis. No pleurisy. No history of DVT. No pulmonary embolism. No official diagnosis of COPD and the patient has not been on inhalers or bronchodilators on outpatient basis. The patient is a chronic smoker. He also has an issue with alcoholism. Patient was reevaluated today on 12/23/2016, remains on Lasix drip at 5 mg per hour, patient is in negative fluid balance about 900 mL so far since yesterday. Patient is also on heparin. Overall the patient is feeling better compared to how she felt yesterday. Less short of breath. Chest x-ray continues to suggest interstitial edema, patient continues to have crackles at the bases bilaterally. CBC is relatively unremarkable. PTT is therapeutic, basic metabolic profile is relatively normal. The blood sugar is 183. Patient was reevaluated today on 12/24/2016, continues to do well, feeling much better, breathing a lot easier, down to 6 L nasal cannula, he was on 10 L last night. Patient is hemodynamically stable, remains in normal sinus rhythm. Hence the patient was seen by cardiology, placed on Lasix IV push every 12 hours , and his Lasix drip was discontinued. Heparin drip was discontinued. And the patient will be transferred to [facility] [place]. His echocardiogram showed mild to moderate impairment of the ventricle with 40-45% ejection fraction. Objective - Vital Signs Vital signs: Vital Signs Temp 98.6 F 12/24/16 12:00 Pulse 96 12/24/16 13:12 Resp 20 12/24/16 12:00 BP 118/68 12/24/16 12:00 Pulse Ox 92 L 12/24/16 12:00 Intake & Output 12/23/16 12/24/16 12/24/16 18:59 06:59 18:59 Intake Total 1054.910 923 Output Total 2100 1775 275 Balance -1045.090 -852 -275 Weight 84.3 kg 81.8 kg 81.8 kg Intake: IV 174.2 100 0.9 45 100 Heparin Sodium,Porcine/ 129.2 D5w Pmx 25,000 unit In Dextrose/Water 1 500ml. bag @ 12 UNITS/KG/HR 20. 13 mls/hr IV .Q24H JACQUE Rx #:[id number] Intake, IV Titration 630.710 583 Amount Furosemide 250 mg In 149.917 83 Sodium Chloride 0.9% 225 ml @ 5 MG/HR 5 mls/hr IVP .Q24H JACQUE Rx#:[id number] Heparin Sodium,Porcine/ 380.793 500 D5w Pmx 25,000 unit In Dextrose/Water 1 500ml. bag @ 12 UNITS/KG/HR 20. 13 mls/hr IV .Q24H JACQUE Rx #:[id number] Magnesium Sulfate-D5w Pmx 100 1 gm In Dextrose/Water 1 100ml.bag @ 100 mls/hr IVPB Q1H JACQUE Rx#: [id number] Oral 250 240 Output: Urine 2100 1775 275 Other: Voiding Method Indwelling Catheter Indwelling Catheter Urinal # Voids 3 1 # Bowel Movements 0 1 - Exam The patient appeared well nourished and normally developed. The patient was noted to be in respiratory distress even at rest. He was tachypneic and he was having labored breathing and audible wheezes can be appreciated Vital signs as documented. Head exam is unremarkable. No scleral icterus or corneal arcus noted. Neck is without jugular venous distension, thyromegaly, or carotid bruits. Carotid upstrokes are brisk bilaterally. Lungs showing a mild crackles at the left base,, no rhonchi no wheezes. Cardiac exam reveals the PMI to be normally sized and situated. Rhythm is regular. First and second heart sounds normal. No murmurs, rubs or gallops. Abdominal exam reveals normal bowel sounds , no masses, no organomegaly and no aortic enlargement. Extremities are nonedematous and both femoral and pedal pulses are diminished - Labs CBC & Chem 7: 12/24/16 03:57 12/24/16 04:04 Labs: Abnormal Lab Results - Last 24 Hours (Table) 12/24/16 12/24/16 12/24/16 Range/Units 03:57 03:57 04:04 RBC 3.42 L (4.30-5.90) m/uL Hgb 11.6 L (13.0-17.5) gm/dL Hct 33.5 L (39.0-53.0) % APTT 47.3 H (22.0-30.0) sec Chloride 97 L (98-107) mmol/L Carbon Dioxide 34 H (22-30) mmol/L Glucose 138 H (74-99) mg/dL POC Glucose (mg/dL) (75-99) mg/dL Calcium 8.3 L (8.4-10.2) mg/dL AST 15 L (17-59) U/L Total Protein 5.6 L (6.3-8.2) g/dL Albumin 3.4 L (3.5-5.0) g/dL 12/24/16 Range/Units 07:24 RBC (4.30-5.90) m/uL Hgb (13.0-17.5) gm/dL Hct (39.0-53.0) % APTT (22.0-30.0) sec Chloride (98-107) mmol/L Carbon Dioxide (22-30) mmol/L Glucose (74-99) mg/dL POC Glucose (mg/dL) 271 H (75-99) mg/dL Calcium (8.4-10.2) mg/dL AST (17-59) U/L Total Protein (6.3-8.2) g/dL Albumin (3.5-5.0) g/dL Microbiology - Last 24 Hours (Table) 12/22/16 04:12 Blood Culture - Preliminary Blood No Growth after 48 hours 04/30/17 11:45 Urine Culture - Final Urine,Catheterized Assessment and Plan Plan: 1 acute COPD exacerbation/acute bronchitis. 2 acute shortness of breath mainly due to COPD exacerbation with possibly a component of CHF 3 coronary artery disease with previous myocardial infarction 4 severe peripheral vascular disease and history of claudication with previous iliac stents 5 alcoholism 6 smoker 7 BPH 8 minor troponin leak without any EKG changes 9 chronic back pain 10 right bundle branch block pattern Recommendation: Continue present supportive care measures, patient will be transferred to a monitored bed on [facility] today. And possible discharge planning in the next 2-3 days. Time with Patient: Less than 30
--- NOTE | 2016-12-24 17:16 | P.PN ---
Subjective Principal diagnosis: Shortness of breath Patient is 61-year-old white male, patient of Dr. Silva in the outpatient setting, with medical history significant for COPD, coronary artery disease, dyslipidemia, severe peripheral vascular disease and chronic claudication, chronic back pain, BPH, nicotine dependence, and alcohol abuse. Patient presented to the emergency department with complaints of shortness of breath. Onset of symptoms 2 days. Symptoms are exacerbated with exertion and lying flat. Patient also complained of nonproductive cough and some chest discomfort. No history of leg swelling or leg pain. Prior to patient presenting to the ER, he had presented to [facility] where he is given a breathing treatment without improvement of symptoms and chest x-ray there reportedly has concerns for fluid on the lungs. Chest x-ray in the emergency department with evidence of COPD and congestive heart failure. BNP elevated at 2039. Troponins were slightly elevated and patient was started on a IV heparin drip with consult to cardiology. Patient was found to be in mild respiratory distress and started on IV Lasix with consult to Dr. Mcnair for pulmonary management. Patient was admitted to the intensive care unit for close monitoring. Upon exam, patient is sitting up in a chair. Patient states his breathing better but still reports shortness of breath with minimal activity. Denies chills, fevers, nausea, vomiting, chest pain, abdominal pain, leg swelling, or leg pain. Patient is currently on 6 L of oxygen down from 10 L yesterday. Urine output adequate. IV Lasix drip has been discontinued and patient is currently on Lasix IV push every 12 hours. Heparin IV has been discontinued. Echocardiogram with Doppler with evidence of mild to moderate impairment of ventricle with 40-45% ejection fraction. Objective - Vital Signs Vital signs: Vital Signs Temp 97.7 F 12/24/16 16:00 Pulse 89 12/24/16 16:00 Resp 16 12/24/16 16:00 BP 114/65 12/24/16 16:00 Pulse Ox 95 12/24/16 16:00 Intake & Output 12/23/16 12/24/16 12/24/16 18:59 06:59 18:59 Intake Total 1054.910 923 Output Total 2100 1775 275 Balance -1045.090 -852 -275 Weight 84.3 kg 81.8 kg 81.8 kg Intake: IV 174.2 100 0.9 45 100 Heparin Sodium,Porcine/ 129.2 D5w Pmx 25,000 unit In Dextrose/Water 1 500ml. bag @ 12 UNITS/KG/HR 20. 13 mls/hr IV .Q24H JACQUE Rx #:[id number] Intake, IV Titration 630.710 583 Amount Furosemide 250 mg In 149.917 83 Sodium Chloride 0.9% 225 ml @ 5 MG/HR 5 mls/hr IVP .Q24H JACQUE Rx#:[id number] Heparin Sodium,Porcine/ 380.793 500 D5w Pmx 25,000 unit In Dextrose/Water 1 500ml. bag @ 12 UNITS/KG/HR 20. 13 mls/hr IV .Q24H JACQUE Rx #:[id number] Magnesium Sulfate-D5w Pmx 100 1 gm In Dextrose/Water 1 100ml.bag @ 100 mls/hr IVPB Q1H JACQUE Rx#: [id number] Oral 250 240 Output: Urine 2100 1775 275 Other: Voiding Method Indwelling Catheter Indwelling Catheter Urinal # Voids 3 1 # Bowel Movements 0 1 - Exam GENERAL: Pt awake and alert, well-appearing, well-nourished, and in no acute distress. HEAD: Atraumatic, normocephalic. EYES: Pupils equal, round, and reactive to light, extraocular movements intact, sclera anicteric, conjunctiva are normal. ENT: Moist mucous membranes. NECK:Supple without lymphadenopathy or JVD. LUNGS: Breath sounds diminished with faint crackles at posterior bases. Nonproductive cough. HEART: Heart S1, S2, no S3 or S4. Regular rate and rhythm. No murmurs, rubs or gallops. ABDOMEN: Soft, nontender, nondistended, normoactive bowel sounds. No guarding, no rebound. No masses or organomegaly appreciated. EXTREMITIES: 1 + peripheral pulses. No edema, clubbing or cyanosis. No calf tenderness. NEUROLOGICAL: Pt oriented x 3. Cranial nerves II through XII grossly intact. Strength and sensation grossly intact. PSYCH: Normal mood, normal affect. SKIN: Warm, dry, intact. Normal turgor. No rashes or lesions. - Labs CBC & Chem 7: 12/24/16 03:57 12/24/16 04:04 Labs: Abnormal Lab Results - Last 24 Hours (Table) 12/24/16 12/24/16 12/24/16 Range/Units 03:57 03:57 04:04 RBC 3.42 L (4.30-5.90) m/uL Hgb 11.6 L (13.0-17.5) gm/dL Hct 33.5 L (39.0-53.0) % APTT 47.3 H (22.0-30.0) sec Chloride 97 L (98-107) mmol/L Carbon Dioxide 34 H (22-30) mmol/L Glucose 138 H (74-99) mg/dL POC Glucose (mg/dL) (75-99) mg/dL Calcium 8.3 L (8.4-10.2) mg/dL AST 15 L (17-59) U/L Total Protein 5.6 L (6.3-8.2) g/dL Albumin 3.4 L (3.5-5.0) g/dL 12/24/16 Range/Units 07:24 RBC (4.30-5.90) m/uL Hgb (13.0-17.5) gm/dL Hct (39.0-53.0) % APTT (22.0-30.0) sec Chloride (98-107) mmol/L Carbon Dioxide (22-30) mmol/L Glucose (74-99) mg/dL POC Glucose (mg/dL) 271 H (75-99) mg/dL Calcium (8.4-10.2) mg/dL AST (17-59) U/L Total Protein (6.3-8.2) g/dL Albumin (3.5-5.0) g/dL Microbiology - Last 24 Hours (Table) 12/22/16 04:12 Blood Culture - Preliminary Blood No Growth after 48 hours Assessment and Plan Plan: Impression and plan: 1. Acute exacerbation of COPD. Continue supplemental oxygen to keep oxygen saturation greater than 92, continue Solu-Medrol 60 mg IV every 6 hours, continue Perforomist 20 g inhalation twice a day, continue Pulmicort. 2. Acute hypoxic respiratory failure suspect secondary to COPD exacerbation and acute systolic congestive heart failure. Continue IV push Lasix 40 mg every 12 hours. Continue to monitor renal function. Repeat chest x-ray in a.m. 3. Coronary artery disease with previous myocardial infarction. Continue aspirin. 4. Severe peripheral arterial disease and history of claudication with previous iliac stents. Continue Plavix. 5. BPH. Continue Proscar 5 mg daily.. 6. Elevated troponin leak without ischemic changes to EKG. IV heparin has been discontinued. 7. Chronic back pain. Continue tramadol 50 mg by mouth every 6 hours when necessary. 8. Nicotine abuse. Smoking cessation encouraged. 9. Alcohol abuse. Continue CIWA protocol. Continue vitamin B12 100 mg by mouth twice a day. 10. Hypertension. Continue Coreg 3.125 mg by mouth twice a day. 11. Dyslipidemia. Continue Lipitor 80 mg by mouth at bedtime. 12. GERD. Continue Pepcid 20 mg by mouth twice a day. 13. DVT prophylaxis. Patient is on IV heparin. 14. GI prophylaxis. Continue Pepcid. Continue to monitor patient. Continue current medications. Patient will be transferred to the [facility] when bed available. Continue to follow with consultants. Repeat CBC and BMP in a.m. The above impression and plan have been discussed and directed by Dr. Mcnair. Ervin RILEY acting as scribe for Dr. Mcnair.
[2016-12-24] MEDS ORDERED: IPRATROPIUM-ALBUTEROL 3 ML NEB INHALATION PRN (19:55)
[2016-12-24] MEDS: ATORVASTATIN 80 MG TAB PO SCH (21:44)
[2016-12-24] MEDS: INSULIN LISPRO (humaLOG) 300 UNIT/3 ML VIAL SQ SCH (21:54)
[2016-12-24 22:03] LABS: Glucose,Whole Blood 258 mg/dL (75-99)
[2016-12-25] MEDS: methylPREDNISolone SOD SUCCI 125 MG/2 ML VIAL IV SCH ×5 (01:52→23:27)
[2016-12-25 06:20] LABS: Glucose,Whole Blood 161 mg/dL (75-99)
[2016-12-25] MEDS: INSULIN LISPRO (humaLOG) 300 UNIT/3 ML VIAL SQ SCH ×4 (06:26→23:31)
[2016-12-25 06:58] LABS: Basophils % (A) 0 %; CH 32.5; CHCM 32.9; Eosinophils % (A) 0 %; HCT 36.3 % (39.0-53.0); HDW 3.52; HGB 11.6 gm/dL (13.0-17.5); Hypochromasia Slight; Luc # (Auto) 0.31; Luc % (Auto) 4; Lymphocytes # (A) 1.9 k/uL (1.0-4.8); Lymphocytes % (A) 24 %; MCH 31.7 pg (25.0-35.0); MCV 99.1 fL (80.0-100.0); Macrocytosis Slight; Mean Platelet Volume 7.5; Monocytes # (A) 0.4 k/uL (0-1.0); Monocytes % (A) 5 %; Neutrophils # (A) 5.4 k/uL (1.3-7.7); Neutrophils % (A) 67 %; Poikilocytosis Slight; RBC 3.66 m/uL (4.30-5.90); RDW 14.6 % (11.5-15.5); WBC (Perox) 8.43
[2016-12-25 07:11] LABS: Anion Gap 8 mmol/L; Blood Urea Nitrogen 22 mg/dL (9-20); Calcium 8.8 mg/dL (8.4-10.2); Carbon Dioxide 35 mmol/L (22-30); Chloride 96 mmol/L (98-107); Glucose 119 mg/dL (74-99); Non-African American GFR(MDRD) >60 (>60 ml/min/1.73 sqM); Phosphorous 4.2 mg/dL (2.5-4.5); Potassium 3.8 mmol/L (3.5-5.1); Sodium 139 mmol/L (137-145)
--- NOTE | 2016-12-25 08:06 | XR ---
EXAMINATION TYPE: XR chest 1V portable DATE OF EXAM: 12/25/2016 7:20 AM HISTORY: Shortness of breath. COMPARISON: December 24, 2016 TECHNIQUE: Single view of the chest is submitted. FINDINGS: Demonstrated are scattered senescent parenchymal change. There is increased patchy density right lower lobe. Correlate for pneumonia. The heart is stable. Hilar and mediastinal structures are within normal limits. Degenerative changes are seen of the dorsal spine. IMPRESSION: 1. There is increased patchy density right lower lobe. Correlate for pneumonia.
[2016-12-25] MEDS: FORMOTEROL FUMARATE 20 MCG/2 ML NEBU INHALATION SCH ×2 (09:07→20:36)
[2016-12-25] MEDS: BUDESONIDE 1 MG/2 ML NEBU INHALATION SCH ×2 (09:07→20:36)
[2016-12-25] MEDS: IPRATROPIUM-ALBUTEROL 3 ML NEB INHALATION SCH ×4 (09:08→20:36)
[2016-12-25] MEDS: FAMOTIDINE 20 MG TAB PO SCH ×2 (10:54→23:26)
[2016-12-25] MEDS: LORazepam 0.5 MG TAB PO SCH ×2 (10:54→23:26)
[2016-12-25] MEDS: CLOPIDOGREL 75 MG TAB PO SCH (10:54)
[2016-12-25] MEDS: CARVEDILOL 3.125 MG TAB PO SCH ×2 (10:55→23:26)
[2016-12-25] MEDS: FINASTERIDE 5 MG TAB PO SCH (10:55)
[2016-12-25] MEDS: ASPIRIN 325 MG TAB PO SCH (10:55)
[2016-12-25] MEDS: NITROGLYCERIN OINT 1 INCH/GM PACKET TOPICAL SCH ×4 (10:56→23:27)
[2016-12-25] MEDS: guaiFENesin 600 MG TABLET.ER PO SCH ×2 (11:05→23:26)
[2016-12-25 11:23] LABS: Glucose,Whole Blood 199 mg/dL (75-99)
[2016-12-25] MEDS: MULTIVITAMINS, THERA 1 EACH TAB PO SCH (13:22)
[2016-12-25] MEDS: THIAMINE 100 MG TAB PO SCH ×2 (13:22→17:29)
--- NOTE | 2016-12-25 13:32 | P.PN ---
Subjective Principal diagnosis: Shortness of breath secondary to COPD and just of heart failure. A 61-year-old male patient was admitted to the hospital today and I was asked to evaluate this patient immediately as the patient was noted to be in quite asked her distress. I saw the patient and it was obvious that he was struggling with his breathing, he was actively bronchospastic and wheezy with prolongation of the expiratory phase of breathing and he was also tachypneic with a breathing rate of more than 30. Immediately the patient got moved to the intensive care unit. Her blood gases was done that showed no significant respiratory acidosis. The chest x-ray showed increased interstitial markings bilaterally and the patient was already started on diuretics. He denied having any chest pain. He is known to have coronary artery disease and extensive peripheral vascular disease. She has had previous Vascular intervention and stenting in lower extremities bilaterally for treatment of claudication. He is a chronic smoker. The proBNP level is modestly elevated. Troponin was slightly abnormal and the patient was started on IV heparin and cardiology evaluation is to follow. The echocardiogram was also ordered to assess his underlying LV function. He denies having any chest pain. No mental status change. No confusion. He had a congested cough. No hemoptysis. No pleurisy. No history of DVT. No pulmonary embolism. No official diagnosis of COPD and the patient has not been on inhalers or bronchodilators on outpatient basis. The patient is a chronic smoker. He also has an issue with alcoholism. Patient was reevaluated today on 12/23/2016, remains on Lasix drip at 5 mg per hour, patient is in negative fluid balance about 900 mL so far since yesterday. Patient is also on heparin. Overall the patient is feeling better compared to how she felt yesterday. Less short of breath. Chest x-ray continues to suggest interstitial edema, patient continues to have crackles at the bases bilaterally. CBC is relatively unremarkable. PTT is therapeutic, basic metabolic profile is relatively normal. The blood sugar is 183. Patient was reevaluated today on 12/24/2016, continues to do well, feeling much better, breathing a lot easier, down to 6 L nasal cannula, he was on 10 L last night. Patient is hemodynamically stable, remains in normal sinus rhythm. Hence the patient was seen by cardiology, placed on Lasix IV push every 12 hours , and his Lasix drip was discontinued. Heparin drip was discontinued. And the patient will be transferred to [facility]. His echocardiogram showed mild to moderate impairment of the ventricle with 40-45% ejection fraction. Patient was evaluated today on 12/25/2016, patient is feeling a bit congested, has difficulty clearing his secretions, and has intermittent episodes of wheezing. Chest x-ray is showing a patchy density in the right lower lobe, I suspect it is atelectasis rather than pneumonia, because the patient has no fever, and he has no white count. I have recommended cutting down the Lasix because he seems to be clinically dry, I recommended empiric Levaquin, I have also recommended that he remains on the bronchodilators, and on steroids. He is seen next was added today for his dry cough. Objective - Vital Signs Vital signs: Vital Signs Temp 98.1 F 12/25/16 03:55 Pulse 84 12/25/16 09:30 Resp 16 12/25/16 03:55 BP 124/76 12/25/16 03:55 Pulse Ox 87 L 12/25/16 03:55 Intake & Output 12/24/16 12/25/16 12/25/16 18:59 06:59 18:59 Intake Total 237 318 Output Total 1075 900 Balance -838 -900 318 Weight 81.8 kg 80.6 kg Intake: Oral 237 318 Output: Urine 1075 900 Other: Voiding Method Urinal # Voids 1 2 # Bowel Movements 1 - Exam Physical Exam: Revealed a 61-year-old white male, clinically dry, in no distress. HEENT:[Neck is supple.] [No neck masses.] [No thyromegaly.] [No JVD.] Chest: [Rhonchi and wheezes noted bilaterally.] Cardiac Exam: [Normal S1 and S2, no S3 gallop, no murmur.] Abdomen: [Soft, nontender, no megaly, no rebound, no guarding, normal bowel sounds.] Extremities: [No clubbing, no edema, no cyanosis.] Neurological Exam: [No focal neurologic deficit.] - Labs CBC & Chem 7: 12/25/16 06:32 12/25/16 06:32 Labs: Abnormal Lab Results - Last 24 Hours (Table) 12/24/16 12/25/16 12/25/16 Range/Units 21:50 06:18 06:32 RBC 3.66 L (4.30-5.90) m/uL Hgb 11.6 L (13.0-17.5) gm/dL Hct 36.3 L (39.0-53.0) % Chloride (98-107) mmol/L Carbon Dioxide (22-30) mmol/L BUN (9-20) mg/dL Glucose (74-99) mg/dL POC Glucose (mg/dL) 258 H 161 H (75-99) mg/dL 12/25/16 12/25/16 Range/Units 06:32 11:22 RBC (4.30-5.90) m/uL Hgb (13.0-17.5) gm/dL Hct (39.0-53.0) % Chloride 96 L (98-107) mmol/L Carbon Dioxide 35 H (22-30) mmol/L BUN 22 H (9-20) mg/dL Glucose 119 H (74-99) mg/dL POC Glucose (mg/dL) 199 H (75-99) mg/dL Microbiology - Last 24 Hours (Table) 12/22/16 04:12 Blood Culture - Preliminary Blood No Growth after 72 hours Assessment and Plan Plan: 1 acute COPD exacerbation/acute bronchitis. 2 acute shortness of breath mainly due to COPD exacerbation with possibly a component of CHF 3 coronary artery disease with previous myocardial infarction 4 severe peripheral vascular disease and history of claudication with previous iliac stents 5 alcoholism 6 smoker 7 BPH 8 minor troponin leak without any EKG changes 9 chronic back pain 10 right bundle branch block pattern 11 abnormal chest x-ray showing patchy density in the right lower lobe I believe it is mostly density of atelectasis rather than true pneumonia. However I will empirically start the patient on Levaquin. Patient clearly has symptoms of tracheobronchitis and exacerbation of COPD. Recommendation: Continue present bronchodilators, steroids, added Levaquin, cut down the dose of Lasix to once daily. Time with Patient: Less than 30
--- NOTE | 2016-12-25 14:39 | P.PN ---
Subjective Principal diagnosis: Congestive heart failure Patient is 61-year-old white male, patient of Dr. Silva in the outpatient setting, with medical history significant for COPD, coronary artery disease, dyslipidemia, severe peripheral vascular disease and chronic claudication, chronic back pain, BPH, nicotine dependence, and alcohol abuse. Patient presented to the emergency department with complaints of shortness of breath. Onset of symptoms 2 days. Symptoms are exacerbated with exertion and lying flat. Patient also complained of nonproductive cough and some chest discomfort. No history of leg swelling or leg pain. Prior to patient presenting to the ER, he had presented to [facility] where he is given a breathing treatment without improvement of symptoms and chest x-ray there reportedly has concerns for fluid on the lungs. Chest x-ray in the emergency department with evidence of COPD and congestive heart failure. BNP elevated at 2040. Troponins were slightly elevated and patient was started on a IV heparin drip with consult to cardiology. Patient was found to be in mild respiratory distress and started on IV Lasix with consult to Dr. Mcnair for pulmonary management. Patient was admitted to the intensive care unit for close monitoring. Patient is evaluated on a selective care unit. Patient complains of not being able to take a deep breath and unable to bring up secretions. Cough is nonproductive. Denies chills, fevers, nausea, vomiting, chest pain, abdominal pain, leg swelling, or leg pain. Patient is currently on 4 L nasal cannula down from 6 L yesterday. Afebrile. Urine output adequate. Labs reviewed: BUN to creatinine ratio greater than 20 suggesting dehydration. No evidence of leukocytosis. Chest x-ray with evidence of increased patchy density right lower lobe suggestive of pneumonia. Objective - Vital Signs Vital signs: Vital Signs Temp 98.1 F 12/25/16 03:55 Pulse 84 12/25/16 09:30 Resp 16 12/25/16 03:55 BP 124/76 12/25/16 03:55 Pulse Ox 87 L 12/25/16 03:55 Intake & Output 12/24/16 12/25/16 12/25/16 18:59 06:59 18:59 Intake Total 237 318 Output Total 1075 900 Balance -838 -900 318 Weight 81.8 kg 80.6 kg Intake: Oral 237 318 Output: Urine 1075 900 Other: Voiding Method Urinal # Voids 1 2 # Bowel Movements 1 - Exam GENERAL: Pt awake and alert, well-appearing, well-nourished, and in no acute distress. HEAD: Atraumatic, normocephalic. EYES: Pupils equal, round, and reactive to light, extraocular movements intact, sclera anicteric, conjunctiva are normal. ENT: Moist mucous membranes. NECK:Supple without lymphadenopathy or JVD. LUNGS: Breath sounds diminished with faint wheezes and faint crackles at posterior bases. Nonproductive cough. HEART: Heart S1, S2, no S3 or S4. Regular rate and rhythm. No murmurs, rubs or gallops. ABDOMEN: Soft, nontender, nondistended, normoactive bowel sounds. No guarding, no rebound. No masses or organomegaly appreciated. EXTREMITIES: 1 + peripheral pulses. No edema, clubbing or cyanosis. No calf tenderness. NEUROLOGICAL: Pt oriented x 3. Cranial nerves II through XII grossly intact. Strength and sensation grossly intact. PSYCH: Normal mood, normal affect. SKIN: Warm, dry, intact. Normal turgor. No rashes or lesions. - Labs CBC & Chem 7: 12/25/16 06:32 12/25/16 06:32 Labs: Abnormal Lab Results - Last 24 Hours (Table) 12/24/16 12/25/16 12/25/16 Range/Units 21:50 06:18 06:32 RBC 3.66 L (4.30-5.90) m/uL Hgb 11.6 L (13.0-17.5) gm/dL Hct 36.3 L (39.0-53.0) % Chloride (98-107) mmol/L Carbon Dioxide (22-30) mmol/L BUN (9-20) mg/dL Glucose (74-99) mg/dL POC Glucose (mg/dL) 258 H 161 H (75-99) mg/dL 12/25/16 12/25/16 Range/Units 06:32 11:22 RBC (4.30-5.90) m/uL Hgb (13.0-17.5) gm/dL Hct (39.0-53.0) % Chloride 96 L (98-107) mmol/L Carbon Dioxide 35 H (22-30) mmol/L BUN 22 H (9-20) mg/dL Glucose 119 H (74-99) mg/dL POC Glucose (mg/dL) 199 H (75-99) mg/dL Microbiology - Last 24 Hours (Table) 12/22/16 04:12 Blood Culture - Preliminary Blood No Growth after 72 hours Assessment and Plan Plan: Impression and plan: 1. Acute exacerbation of COPD. Continue supplemental oxygen to keep oxygen saturation greater than 92, continue Solu-Medrol 60 mg IV every 6 hours, continue Perforomist 20 g inhalation twice a day, continue Pulmicort. 2. Acute hypoxic respiratory failure suspect secondary to COPD exacerbation and acute systolic congestive heart failure; possible pneumonia. Decrease IV push Lasix to 40 mg daily. Continue Levaquin for empiric coverage. Continue to monitor renal function. Repeat chest x-ray in a.m. 3. Coronary artery disease with previous myocardial infarction. Continue aspirin. 4. Severe peripheral arterial disease and history of claudication with previous iliac stents. Continue Plavix. 5. BPH. Continue Proscar 5 mg daily.. 6. Elevated troponin leak without ischemic changes to EKG. IV heparin has been discontinued. 7. Chronic back pain. Continue tramadol 50 mg by mouth every 6 hours when necessary. 8. Nicotine abuse. Smoking cessation encouraged. 9. Alcohol abuse. Continue CIWA protocol. Continue vitamin B12 100 mg by mouth twice a day. 10. Hypertension. Continue Coreg 3.125 mg by mouth twice a day. 11. Dyslipidemia. Continue Lipitor 80 mg by mouth at bedtime. 12. GERD. Continue Pepcid 20 mg by mouth twice a day. 13. DVT prophylaxis. Start subcu heparin 5000 units twice a day. 14. GI prophylaxis. Continue Pepcid. Continue to monitor patient. Continue current medications. Continue to follow with consultants. Repeat CBC and BMP in a.m. The above impression and plan have been discussed and directed by Dr. Mcnair. Ervin RILEY acting as scribe for Dr. Mcnair.
--- NOTE | 2016-12-25 15:43 | P.PN ---
Subjective Principal diagnosis: COPD/CHF This is a pleasant 61-year-old gentleman who I follow in the office as an outpatient regarding PAD but the patient follows with Dr. Guillory regarding hypertension and dyslipidemia presented to the hospital with dyspnea.According to him, he was in his usual state of health until about 2 days ago when he started experiencing slowly progressive exertional dyspnea associated with orthopnea and PND. The patient was diagnosed with CHF as well as COPD exacerbation. Patient has been diuresing overall very well on IV Lasix. Complains today of feeling tight in his chest, significant wheezing heard throughout. We recommend to discontinue the IV Lasix. Chest x-ray revealed an increased patchy density in the right lower lobe. Objective - Vital Signs Vital signs: Vital Signs Temp 97.2 F L 12/25/16 12:00 Pulse 72 12/25/16 12:00 Resp 18 12/25/16 12:00 BP 122/77 12/25/16 12:00 Pulse Ox 96 12/25/16 12:00 Intake & Output 12/24/16 12/25/16 12/25/16 18:59 06:59 18:59 Intake Total 237 318 Output Total 1075 900 Balance -838 -900 318 Weight 81.8 kg 80.6 kg Intake: Oral 237 318 Output: Urine 1075 900 Other: Voiding Method Urinal # Voids 1 2 # Bowel Movements 1 - Exam PHYSICAL EXAMINATION: HEENT: Head is atraumatic, normocephalic. Pupils equal, round. Neck is supple. There is no elevated jugular venous pressure. HEART EXAMINATION: Heart S1, S2 normal. No murmur or gallop heard. CHEST EXAMINATION: Lungs reveal decreased air exchange throughout with scattered wheezing bilaterally. ABDOMEN: Soft, nontender. Bowel sounds are heard. No organomegaly noted. EXTREMITIES: 2+ peripheral pulses with no evidence of peripheral edema and no calf tenderness noted. NEUROLOGIC patient is awake, alert and oriented -3. . - Labs CBC & Chem 7: 12/25/16 06:32 12/25/16 06:32 Labs: Abnormal Lab Results - Last 24 Hours (Table) 12/24/16 12/25/16 12/25/16 Range/Units 21:50 06:18 06:32 RBC 3.66 L (4.30-5.90) m/uL Hgb 11.6 L (13.0-17.5) gm/dL Hct 36.3 L (39.0-53.0) % Chloride (98-107) mmol/L Carbon Dioxide (22-30) mmol/L BUN (9-20) mg/dL Glucose (74-99) mg/dL POC Glucose (mg/dL) 258 H 161 H (75-99) mg/dL 12/25/16 12/25/16 Range/Units 06:32 11:22 RBC (4.30-5.90) m/uL Hgb (13.0-17.5) gm/dL Hct (39.0-53.0) % Chloride 96 L (98-107) mmol/L Carbon Dioxide 35 H (22-30) mmol/L BUN 22 H (9-20) mg/dL Glucose 119 H (74-99) mg/dL POC Glucose (mg/dL) 199 H (75-99) mg/dL Microbiology - Last 24 Hours (Table) 12/22/16 04:12 Blood Culture - Preliminary Blood No Growth after 72 hours Assessment and Plan (1) COPD exacerbation Status: Acute (2) Diastolic CHF, acute on chronic Status: Acute (3) CAD (coronary artery disease) Status: Acute (4) Hx of myocardial infarction Status: Acute (5) PVD (peripheral vascular disease) Status: Acute (6) ETOH abuse Status: Acute (7) Nicotine dependence Status: Acute (8) RBBB Status: Acute Plan: From cardiology's perspective, we'll recommend to discontinue the IV Lasix and start the patient on oral diuretics. Continue treatment for COPD exacerbation. DNP note has been reviewed, I agree with a documented findings and plan of care. Patient was seen and examined.
[2016-12-25 16:28] LABS: Glucose,Whole Blood 194 mg/dL (75-99)
[2016-12-25] MEDS: LEVOFLOXACIN 750MG-D5W PMX 750 MG in DEXTROSE/WATER 1 150ML.BAG IVPB SCH (17:28)
[2016-12-25 20:54] LABS: Glucose,Whole Blood 214 mg/dL (75-99)
[2016-12-25] MEDS: HEPARIN SODIUM,PORCINE 5,000 UNIT/ML 1 ML VIAL SQ SCH (23:26)
[2016-12-25] MEDS: ATORVASTATIN 80 MG TAB PO SCH (23:26)
[2016-12-26 06:06] LABS: Glucose,Whole Blood 119 mg/dL (75-99)
[2016-12-26] MEDS: methylPREDNISolone SOD SUCCI 125 MG/2 ML VIAL IV SCH ×3 (06:19→17:46)
[2016-12-26] MEDS: INSULIN LISPRO (humaLOG) 300 UNIT/3 ML VIAL SQ SCH ×4 (06:35→23:08)
[2016-12-26] MEDS: BUDESONIDE 1 MG/2 ML NEBU INHALATION SCH ×2 (08:08→20:09)
[2016-12-26] MEDS: FORMOTEROL FUMARATE 20 MCG/2 ML NEBU INHALATION SCH ×2 (08:08→20:09)
[2016-12-26] MEDS: IPRATROPIUM-ALBUTEROL 3 ML NEB INHALATION SCH ×4 (08:08→20:09)
--- NOTE | 2016-12-26 08:11 | XR ---
EXAMINATION TYPE: XR chest 2V DATE OF EXAM: 12/26/2016 6:38 AM COMPARISON: Prior chest x-ray 25 Dec 2016 HISTORY: Follow-up, abnormal chest x-ray TECHNIQUE: Frontal and lateral views of the chest are obtained. FINDINGS: There are prominent lung volumes. Overlying cardiac leads are again noted. Heart size is s table. Interstitium is increased. No pneumothorax or pleural effusion. There is a scoliosis. Coronary artery calcifications are present. Pulmonary vascularity and kendra are similar. IMPRESSION: There is some improvement in aeration.
[2016-12-26 08:34] LABS: Basophils % (A) 1 %; CH 32.5; CHCM 33.5; Eosinophils % (A) 0 %; HCT 39.6 % (39.0-53.0); HDW 3.68; HGB 13.1 gm/dL (13.0-17.5); Hypochromasia Slight; Luc # (Auto) 0.23; Luc % (Auto) 3; Lymphocytes # (A) 2.1 k/uL (1.0-4.8); Lymphocytes % (A) 28 %; MCH 32.3 pg (25.0-35.0); MCHC 33.2 g/dL (31.0-37.0); MCV 97.2 fL (80.0-100.0); Mean Platelet Volume 8.3; Monocytes # (A) 0.4 k/uL (0-1.0); Monocytes % (A) 6 %; Neutrophils # (A) 4.6 k/uL (1.3-7.7); Neutrophils % (A) 62 %; Poikilocytosis Slight; RBC 4.07 m/uL (4.30-5.90); RDW 14.1 % (11.5-15.5); WBC 7.5 k/uL (3.8-10.6); WBC (Perox) 6.96
[2016-12-26] MEDS ORDERED: FUROSEMIDE 10 MG/ML 4 ML VIAL IV SCH (09:00)
[2016-12-26] MEDS: CARVEDILOL 3.125 MG TAB PO SCH ×2 (10:02→22:03)
[2016-12-26] MEDS: ASPIRIN 325 MG TAB PO SCH (10:02)
[2016-12-26] MEDS: guaiFENesin 600 MG TABLET.ER PO SCH ×2 (10:03→22:03)
[2016-12-26] MEDS: FUROSEMIDE 40 MG TAB PO SCH (10:03)
[2016-12-26] MEDS: HEPARIN SODIUM,PORCINE 5,000 UNIT/ML 1 ML VIAL SQ SCH ×2 (10:03→22:02)
[2016-12-26] MEDS: FINASTERIDE 5 MG TAB PO SCH (10:03)
[2016-12-26] MEDS: CLOPIDOGREL 75 MG TAB PO SCH (10:03)
[2016-12-26] MEDS: FAMOTIDINE 20 MG TAB PO SCH ×2 (10:03→22:03)
[2016-12-26] MEDS: NITROGLYCERIN OINT 1 INCH/GM PACKET TOPICAL SCH ×4 (10:04→23:09)
[2016-12-26] MEDS: LORazepam 0.5 MG TAB PO SCH ×2 (10:05→22:03)
[2016-12-26 11:55] LABS: Glucose,Whole Blood 167 mg/dL (75-99)
--- NOTE | 2016-12-26 12:50 | P.PN ---
Subjective Principal diagnosis: Shortness of breath secondary to COPD and congestive heart failure. A 61-year-old male patient was admitted to the hospital today and I was asked to evaluate this patient immediately as the patient was noted to be in quite asked her distress. I saw the patient and it was obvious that he was struggling with his breathing, he was actively bronchospastic and wheezy with prolongation of the expiratory phase of breathing and he was also tachypneic with a breathing rate of more than 30. Immediately the patient got moved to the intensive care unit. Her blood gases was done that showed no significant respiratory acidosis. The chest x-ray showed increased interstitial markings bilaterally and the patient was already started on diuretics. He denied having any chest pain. He is known to have coronary artery disease and extensive peripheral vascular disease. She has had previous Vascular intervention and stenting in lower extremities bilaterally for treatment of claudication. He is a chronic smoker. The proBNP level is modestly elevated. Troponin was slightly abnormal and the patient was started on IV heparin and cardiology evaluation is to follow. The echocardiogram was also ordered to assess his underlying LV function. He denies having any chest pain. No mental status change. No confusion. He had a congested cough. No hemoptysis. No pleurisy. No history of DVT. No pulmonary embolism. No official diagnosis of COPD and the patient has not been on inhalers or bronchodilators on outpatient basis. The patient is a chronic smoker. He also has an issue with alcoholism. Patient was reevaluated today on 12/23/2016, remains on Lasix drip at 5 mg per hour, patient is in negative fluid balance about 900 mL so far since yesterday. Patient is also on heparin. Overall the patient is feeling better compared to how she felt yesterday. Less short of breath. Chest x-ray continues to suggest interstitial edema, patient continues to have crackles at the bases bilaterally. CBC is relatively unremarkable. PTT is therapeutic, basic metabolic profile is relatively normal. The blood sugar is 183. Patient was reevaluated today on 12/24/2016, continues to do well, feeling much better, breathing a lot easier, down to 6 L nasal cannula, he was on 10 L last night. Patient is hemodynamically stable, remains in normal sinus rhythm. Hence the patient was seen by cardiology, placed on Lasix IV push every 12 hours , and his Lasix drip was discontinued. Heparin drip was discontinued. And the patient will be transferred to [facility]. His echocardiogram showed mild to moderate impairment of the ventricle with 40-45% ejection fraction. Patient was evaluated today on 12/25/2016, patient is feeling a bit congested, has difficulty clearing his secretions, and has intermittent episodes of wheezing. Chest x-ray is showing a patchy density in the right lower lobe, I suspect it is atelectasis rather than pneumonia, because the patient has no fever, and he has no white count. I have recommended cutting down the Lasix because he seems to be clinically dry, I recommended empiric Levaquin, I have also recommended that he remains on the bronchodilators, and on steroids. He is seen next was added today for his dry cough. On 12/26/2016, patient seems to be doing better, breathing a lot easier, cough and wheezing significantly improved, patient is now on diuretics of bronchodilators and steroids and antibiotics. Patient is able to clear secretions better since Mucinex was added. And his Lasix has been cut down. Labs were reviewed patient has no evidence of leukocytosis, basic metabolic profile he remains relatively normal except for bicarb of 35. Clinically there has been some improvement over the last 24 hours. Objective - Vital Signs Vital signs: Vital Signs Temp 97.7 F 12/26/16 12:00 Pulse 80 12/26/16 12:00 Resp 16 12/26/16 12:00 BP 132/80 12/26/16 12:00 Pulse Ox 95 12/26/16 12:00 Intake & Output 12/25/16 12/26/16 12/26/16 18:59 06:59 18:59 Intake Total 554 150 118 Output Total 700 400 Balance 554 -790 -282 Weight 81.6 kg Intake: Intake, IV Titration 150 Amount Levofloxacin 750Mg-D5w 150 Pmx 750 mg In Dextrose/ Water 1 150ml.bag @ 100 mls/hr IVPB Q24H [facility] Rx#: [id number] Oral 554 118 Output: Urine 700 400 Other: Voiding Method Urinal Urinal # Voids 2 1 - Exam Physical Exam: Revealed a 61-year-old white male, clinically dry, in no distress. HEENT:[Neck is supple.] [No neck masses.] [No thyromegaly.] [No JVD.] Chest: [Diminished breath sounds bilaterally, slight wheezing on forced expiratory maneuver only..] Cardiac Exam: [Normal S1 and S2, no S3 gallop, no murmur.] Abdomen: [Soft, nontender, no megaly, no rebound, no guarding, normal bowel sounds.] Extremities: [No clubbing, no edema, no cyanosis.] Neurological Exam: [No focal neurologic deficit.] - Labs CBC & Chem 7: 12/26/16 05:36 12/25/16 06:32 Labs: Abnormal Lab Results - Last 24 Hours (Table) 12/25/16 12/25/16 12/26/16 Range/Units 16:26 20:49 05:36 RBC 4.07 L (4.30-5.90) m/uL POC Glucose (mg/dL) 194 H 214 H (75-99) mg/dL 12/26/16 12/26/16 Range/Units 05:50 11:39 RBC (4.30-5.90) m/uL POC Glucose (mg/dL) 119 H 167 H (75-99) mg/dL Microbiology - Last 24 Hours (Table) 12/22/16 04:12 Blood Culture - Preliminary Blood No Growth after 96 hours Assessment and Plan Plan: 1 acute COPD exacerbation/acute bronchitis. 2 acute shortness of breath mainly due to COPD exacerbation with possibly a component of CHF 3 coronary artery disease with previous myocardial infarction 4 severe peripheral vascular disease and history of claudication with previous iliac stents 5 alcoholism 6 smoker 7 BPH 8 minor troponin leak without any EKG changes 9 chronic back pain 10 right bundle branch block pattern 11 abnormal chest x-ray showing patchy density in the right lower lobe I believe it is mostly density of atelectasis rather than true pneumonia. However I will empirically start the patient on Levaquin. Patient clearly has symptoms of tracheobronchitis and exacerbation of COPD. Recommendation: Continue present meds as listed including antibiotics, bronchodilators, steroids, patient has made a significant improvement in the last 24 hours, we'll continue to follow, and possible discharge planning in the next 24 hours if cleared by cardiology for discharge. I can switch him to oral antibiotics in a.m., and we'll keep him on bronchodilators and oral prednisone. Patient could have follow-up with me on outpatient basis. Time with Patient: Less than 30
[2016-12-26] MEDS: MULTIVITAMINS, THERA 1 EACH TAB PO SCH (12:59)
[2016-12-26] MEDS: LEVOFLOXACIN 750MG-D5W PMX 750 MG in DEXTROSE/WATER 1 150ML.BAG IVPB SCH (13:00)
[2016-12-26] MEDS: THIAMINE 100 MG TAB PO SCH ×2 (13:00→17:46)
--- NOTE | 2016-12-26 13:31 | P.PN ---
Subjective Principal diagnosis: Congestive heart failure Patient is 61-year-old white male, patient of Dr. Silva in the outpatient setting, with medical history significant for COPD, coronary artery disease, dyslipidemia, severe peripheral vascular disease and chronic claudication, chronic back pain, BPH, nicotine dependence, and alcohol abuse. Patient presented to the emergency department with complaints of shortness of breath. Onset of symptoms 2 days. Symptoms are exacerbated with exertion and lying flat. Patient also complained of nonproductive cough and some chest discomfort. No history of leg swelling or leg pain. Prior to patient presenting to the ER, he had presented to [facility] where he is given a breathing treatment without improvement of symptoms and chest x-ray there reportedly has concerns for fluid on the lungs. Chest x-ray in the emergency department with evidence of COPD and congestive heart failure. BNP elevated at 0. Troponins were slightly elevated and patient was started on a IV heparin drip with consult to cardiology. Patient was found to be in mild respiratory distress and started on IV Lasix with consult to Dr. Mcnair for pulmonary management. Patient was admitted to the intensive care unit for close monitoring. Patient is evaluated on a selective care unit. Patient is feeling better. Patient states he is able to take a deep breath. Denies chills, fevers, nausea , vomiting, chest pain, abdominal pain, leg swelling, or leg pain. Patient is currently on 2 L nasal cannula down from 4 L yesterday with oxygen saturation of 95%. Afebrile. No evidence of leukocytosis. Chest x-ray with evidence of improvement in aeration. Objective - Vital Signs Vital signs: Vital Signs Temp 97.7 F 12/26/16 12:00 Pulse 80 12/26/16 12:00 Resp 16 12/26/16 12:00 BP 132/80 12/26/16 12:00 Pulse Ox 95 12/26/16 12:00 Intake & Output 12/25/16 12/26/16 12/26/16 18:59 06:59 18:59 Intake Total 554 150 118 Output Total 700 400 Balance 412 -992 -232 Weight 81.6 kg Intake: Intake, IV Titration 150 Amount Levofloxacin 750Mg-D5w 150 Pmx 750 mg In Dextrose/ Water 1 150ml.bag @ 100 mls/hr IVPB Q24H [facility] Rx#: [id number] Oral 554 118 Output: Urine 700 400 Other: Voiding Method Urinal Urinal # Voids 2 1 - Exam GENERAL: Pt awake and alert, well-appearing, well-nourished, and in no acute distress. HEAD: Atraumatic, normocephalic. EYES: Pupils equal, round, and reactive to light, extraocular movements intact, sclera anicteric, conjunctiva are normal. ENT: Moist mucous membranes. NECK:Supple without lymphadenopathy or JVD. LUNGS: Breath sounds diminished with faint crackles at posterior bases. HEART: Heart S1, S2, no S3 or S4. Regular rate and rhythm. No murmurs, rubs or gallops. ABDOMEN: Soft, nontender, nondistended, normoactive bowel sounds. No guarding, no rebound. No masses or organomegaly appreciated. EXTREMITIES: 1 + peripheral pulses. No edema, clubbing or cyanosis. No calf tenderness. NEUROLOGICAL: Pt oriented x 3. Cranial nerves II through XII grossly intact. Strength and sensation grossly intact. PSYCH: Normal mood, normal affect. SKIN: Warm, dry, intact. Normal turgor. No rashes or lesions. - Labs CBC & Chem 7: 12/26/16 05:36 12/25/16 06:32 Labs: Abnormal Lab Results - Last 24 Hours (Table) 12/25/16 12/25/16 12/26/16 Range/Units 16:26 20:49 05:36 RBC 4.07 L (4.30-5.90) m/uL POC Glucose (mg/dL) 194 H 214 H (75-99) mg/dL 12/26/16 12/26/16 Range/Units 05:50 11:39 RBC (4.30-5.90) m/uL POC Glucose (mg/dL) 119 H 167 H (75-99) mg/dL Microbiology - Last 24 Hours (Table) 12/22/16 04:12 Blood Culture - Preliminary Blood No Growth after 96 hours Assessment and Plan Plan: Impression and plan: 1. Acute exacerbation of COPD. Continue supplemental oxygen to keep oxygen saturation greater than 92, continue Solu-Medrol 60 mg IV every 6 hours, continue Perforomist 20 g inhalation twice a day, continue Pulmicort, Mucinex 600 mg by mouth every 12 hours has been added to help clear secretions. 2. Acute hypoxic respiratory failure suspect secondary to COPD exacerbation and acute systolic congestive heart failure; possible pneumonia. Lasix has been changed to 40 mg daily. Continue Levaquin for empiric coverage. Continue to monitor renal function. 3. Coronary artery disease with previous myocardial infarction. Continue aspirin. 4. Severe peripheral arterial disease and history of claudication with previous iliac stents. Continue Plavix. 5. BPH. Continue Proscar 5 mg daily.. 6. Elevated troponin leak without ischemic changes to EKG. IV heparin has been discontinued. 7. Chronic back pain. Continue tramadol 50 mg by mouth every 6 hours when necessary. 8. Nicotine abuse. Smoking cessation encouraged. 9. Alcohol abuse. Continue CIWA protocol. Continue vitamin B12 100 mg by mouth twice a day. 10. Hypertension. Continue Coreg 3.125 mg by mouth twice a day. 11. Dyslipidemia. Continue Lipitor 80 mg by mouth at bedtime. 12. GERD. Continue Pepcid 20 mg by mouth twice a day. 13. DVT prophylaxis. Start subcu heparin 5000 units twice a day. 14. GI prophylaxis. Continue Pepcid. Continue to monitor patient. Continue current medications. Continue to follow with consultants. Repeat CBC and BMP in a.m. The above impression and plan have been discussed and directed by Dr. Mcnair. Ervin RILEY acting as scribe for Dr. Mcnair.
--- NOTE | 2016-12-26 15:46 | P.PN ---
Subjective Principal diagnosis: COPD/CHF This is a pleasant 61-year-old gentleman who I follow in the office as an outpatient regarding PAD but the patient follows with Dr. Guillory regarding hypertension and dyslipidemia presented to the hospital with dyspnea.According to him, he was in his usual state of health until about 2 days ago when he started experiencing slowly progressive exertional dyspnea associated with orthopnea and PND. The patient was diagnosed with CHF as well as COPD exacerbation. As her today patient was complaining of significant wheezing. His IV Lasix was discontinued and he was initiated on oral diuretics. Patient was also given a breathing treatment. He had a repeat chest x-ray today which showed Significant improvement. Overall the patient states he is feeling better today. Objective - Vital Signs Vital signs: Vital Signs Temp 97.7 F 12/26/16 12:00 Pulse 80 12/26/16 12:00 Resp 16 12/26/16 12:00 BP 132/80 12/26/16 12:00 Pulse Ox 95 12/26/16 12:00 Intake & Output 12/25/16 12/26/16 12/26/16 18:59 06:59 18:59 Intake Total 554 150 118 Output Total 700 400 Balance 499 -262 -535 Weight 81.6 kg Intake: Intake, IV Titration 150 Amount Levofloxacin 750Mg-D5w 150 Pmx 750 mg In Dextrose/ Water 1 150ml.bag @ 100 mls/hr IVPB Q24H [facility] Rx#: [id number] Oral 554 118 Output: Urine 700 400 Other: Voiding Method Urinal Urinal # Voids 2 1 - Exam PHYSICAL EXAMINATION: HEENT: Head is atraumatic, normocephalic. Pupils equal, round. Neck is supple. There is no elevated jugular venous pressure. HEART EXAMINATION: Heart S1, S2 normal. No murmur or gallop heard. CHEST EXAMINATION: Lungs reveal improvement in air exchange throughout with . ABDOMEN: Soft, nontender. Bowel sounds are heard. No organomegaly noted. EXTREMITIES: 2+ peripheral pulses with no evidence of peripheral edema and no calf tenderness noted. NEUROLOGIC patient is awake, alert and oriented -3. . - Labs CBC & Chem 7: 12/26/16 05:36 12/25/16 06:32 Labs: Abnormal Lab Results - Last 24 Hours (Table) 05/03/17 05/03/17 05/04/17 Range/Units 16:26 20:49 05:36 RBC 4.07 L (4.30-5.90) m/uL POC Glucose (mg/dL) 194 H 214 H (75-99) mg/dL 12/26/16 12/26/16 Range/Units 05:50 11:39 RBC (4.30-5.90) m/uL POC Glucose (mg/dL) 119 H 167 H (75-99) mg/dL Microbiology - Last 24 Hours (Table) 12/22/16 04:12 Blood Culture - Preliminary Blood No Growth after 96 hours Assessment and Plan (1) COPD exacerbation Status: Acute (2) Diastolic CHF, acute on chronic Status: Acute (3) CAD (coronary artery disease) Status: Acute (4) Hx of myocardial infarction Status: Acute (5) PVD (peripheral vascular disease) Status: Acute (6) ETOH abuse Status: Acute (7) Nicotine dependence Status: Acute (8) RBBB Status: Acute Plan: From cardiology's perspective, we will recommend to continue the patient on his current medications. He may be able to be discharged once cleared by pulmonary and his primary. We will make him a follow-up appointment to see Dr. Renner in the office post discharge. The patient with you now on an as-needed basis only , please don't hesitate to call with any questions. DNP note has been reviewed, I agree with a documented findings and plan of care. Patient was seen and examined.
[2016-12-26 16:51] LABS: Glucose,Whole Blood 239 mg/dL (75-99)
[2016-12-26 21:07] LABS: Glucose,Whole Blood 177 mg/dL (75-99)
[2016-12-26] MEDS: ATORVASTATIN 80 MG TAB PO SCH (22:03)
[2016-12-27] MEDS: methylPREDNISolone SOD SUCCI 125 MG/2 ML VIAL IV SCH ×3 (00:51→12:33)
[2016-12-27] MEDS: INSULIN LISPRO (humaLOG) 300 UNIT/3 ML VIAL SQ SCH ×2 (06:25→12:14)
[2016-12-27 06:33] VITALS: RESP 16
[2016-12-27 06:33] LABS: Glucose,Whole Blood 157 mg/dL (75-99)
[2016-12-27 07:26] LABS: Basophils % (A) 0 %; CH 32.4; CHCM 33.1; Eosinophils % (A) 0 %; HCT 37.4 % (39.0-53.0); HGB 12.1 gm/dL (13.0-17.5); Hypochromasia Slight; Luc # (Auto) 0.23; Luc % (Auto) 3; Lymphocytes % (A) 26 %; MCH 31.8 pg (25.0-35.0); MCHC 32.4 g/dL (31.0-37.0); MCV 98.1 fL (80.0-100.0); Monocytes # (A) 0.2 k/uL (0-1.0); Monocytes % (A) 3 %; Neutrophils # (A) 5.2 k/uL (1.3-7.7); Neutrophils % (A) 68 %; Poikilocytosis Slight; RBC 3.82 m/uL (4.30-5.90); RDW 14.3 % (11.5-15.5); WBC 7.7 k/uL (3.8-10.6); WBC (Perox) 7.99
[2016-12-27 07:42] LABS: Anion Gap 7 mmol/L; Blood Urea Nitrogen 21 mg/dL (9-20); Calcium 8.6 mg/dL (8.4-10.2); Carbon Dioxide 28 mmol/L (22-30); Chloride 99 mmol/L (98-107); Glucose 127 mg/dL (74-99); Non-African American GFR(MDRD) >60 (>60 ml/min/1.73 sqM); Potassium 4.5 mmol/L (3.5-5.1); Sodium 134 mmol/L (137-145)
[2016-12-27] MEDS: FORMOTEROL FUMARATE 20 MCG/2 ML NEBU INHALATION SCH (07:45)
[2016-12-27] MEDS: BUDESONIDE 1 MG/2 ML NEBU INHALATION SCH (07:45)
[2016-12-27] MEDS: IPRATROPIUM-ALBUTEROL 3 ML NEB INHALATION SCH ×2 (07:45→12:01)
[2016-12-27] MEDS: ASPIRIN 325 MG TAB PO SCH (09:57)
[2016-12-27] MEDS: CARVEDILOL 3.125 MG TAB PO SCH (09:57)
[2016-12-27] MEDS: CLOPIDOGREL 75 MG TAB PO SCH (09:58)
[2016-12-27] MEDS: FINASTERIDE 5 MG TAB PO SCH (09:58)
[2016-12-27] MEDS: FAMOTIDINE 20 MG TAB PO SCH (09:58)
[2016-12-27] MEDS: guaiFENesin 600 MG TABLET.ER PO SCH (09:59)
[2016-12-27] MEDS: HEPARIN SODIUM,PORCINE 5,000 UNIT/ML 1 ML VIAL SQ SCH (09:59)
[2016-12-27] MEDS: FUROSEMIDE 40 MG TAB PO SCH (10:00)
[2016-12-27] MEDS: NITROGLYCERIN OINT 1 INCH/GM PACKET TOPICAL SCH ×2 (10:00→12:14)
[2016-12-27] MEDS: LORazepam 0.5 MG TAB PO SCH (10:02)
[2016-12-27 11:17] VITALS: TEMP 97.1
[2016-12-27 12:04] LABS: Glucose,Whole Blood 334 mg/dL (75-99)
[2016-12-27] MEDS: THIAMINE 100 MG TAB PO SCH (12:33)
[2016-12-27] MEDS: MULTIVITAMINS, THERA 1 EACH TAB PO SCH (12:33)
--- NOTE | 2016-12-27 13:06 | P.PN ---
Subjective Principal diagnosis: Shortness of breath secondary to COPD and congestive heart failure. A 61-year-old male patient was admitted to the hospital today and I was asked to evaluate this patient immediately as the patient was noted to be in quite asked her distress. I saw the patient and it was obvious that he was struggling with his breathing, he was actively bronchospastic and wheezy with prolongation of the expiratory phase of breathing and he was also tachypneic with a breathing rate of more than 30. Immediately the patient got moved to the intensive care unit. Her blood gases was done that showed no significant respiratory acidosis. The chest x-ray showed increased interstitial markings bilaterally and the patient was already started on diuretics. He denied having any chest pain. He is known to have coronary artery disease and extensive peripheral vascular disease. She has had previous Vascular intervention and stenting in lower extremities bilaterally for treatment of claudication. He is a chronic smoker. The proBNP level is modestly elevated. Troponin was slightly abnormal and the patient was started on IV heparin and cardiology evaluation is to follow. The echocardiogram was also ordered to assess his underlying LV function. He denies having any chest pain. No mental status change. No confusion. He had a congested cough. No hemoptysis. No pleurisy. No history of DVT. No pulmonary embolism. No official diagnosis of COPD and the patient has not been on inhalers or bronchodilators on outpatient basis. The patient is a chronic smoker. He also has an issue with alcoholism. Patient was reevaluated today on 12/23/2016, remains on Lasix drip at 5 mg per hour, patient is in negative fluid balance about 900 mL so far since yesterday. Patient is also on heparin. Overall the patient is feeling better compared to how she felt yesterday. Less short of breath. Chest x-ray continues to suggest interstitial edema, patient continues to have crackles at the bases bilaterally. CBC is relatively unremarkable. PTT is therapeutic, basic metabolic profile is relatively normal. The blood sugar is 183. Patient was reevaluated today on 12/24/2016, continues to do well, feeling much better, breathing a lot easier, down to 6 L nasal cannula, he was on 10 L last night. Patient is hemodynamically stable, remains in normal sinus rhythm. Hence the patient was seen by cardiology, placed on Lasix IV push every 12 hours , and his Lasix drip was discontinued. Heparin drip was discontinued. And the patient will be transferred to [facility]. His echocardiogram showed mild to moderate impairment of the ventricle with 40-45% ejection fraction. Patient was evaluated today on 12/25/2016, patient is feeling a bit congested, has difficulty clearing his secretions, and has intermittent episodes of wheezing. Chest x-ray is showing a patchy density in the right lower lobe, I suspect it is atelectasis rather than pneumonia, because the patient has no fever, and he has no white count. I have recommended cutting down the Lasix because he seems to be clinically dry, I recommended empiric Levaquin, I have also recommended that he remains on the bronchodilators, and on steroids. He is seen next was added today for his dry cough. On 12/26/2016, patient seems to be doing better, breathing a lot easier, cough and wheezing significantly improved, patient is now on diuretics of bronchodilators and steroids and antibiotics. Patient is able to clear secretions better since Mucinex was added. And his Lasix has been cut down. Labs were reviewed patient has no evidence of leukocytosis, basic metabolic profile he remains relatively normal except for bicarb of 35. Clinically there has been some improvement over the last 24 hours. Patient was reevaluated on 12/27/2016, significantly improved, and basically ready to be discharged home today. No cough no wheezing no shortness of breath. Labs were reviewed and are relatively unremarkable. His meds were reviewed, and I will go ahead and switch him to oral prednisone which could be tapered over a period of 2 weeks. Starting at 30 mg daily for 5 days, 20 mg daily for 5 days, 10 mg daily for 5 days, and 5 mg daily for 5 days. His Brovana and budesonide could be switched to Symbicort. 160/4.52 puffs twice a day. And the patient will remain on DuoNeb updrafts 4 times a day and when necessary. Patient should have follow-up with me in the office in the next 2 weeks. Levaquin should be given for 5 more days. Objective - Vital Signs Vital signs: Vital Signs Temp 97.1 F L 12/27/16 09:00 Pulse 83 12/27/16 09:00 Resp 16 12/27/16 09:00 BP 130/73 12/27/16 09:00 Pulse Ox 93 L 12/27/16 09:00 Intake & Output 12/26/16 12/27/16 12/27/16 18:59 06:59 18:59 Intake Total 118 40 180 Output Total 400 200 Balance -282 -160 180 Weight 81.3 kg Intake: IV 40 0.9 FLush 40 Oral 118 180 Output: Urine 400 200 Other: Voiding Method Urinal Urinal Urinal - Exam Physical Exam: Revealed a 61-year-old white male, clinically dry, in no distress. HEENT:[Neck is supple.] [No neck masses.] [No thyromegaly.] [No JVD.] Chest: [Diminished breath sounds bilaterally, no crackles or rhonchi or wheezes Cardiac Exam: [Normal S1 and S2, no S3 gallop, no murmur.] Abdomen: [Soft, nontender, no megaly, no rebound, no guarding, normal bowel sounds.] Extremities: [No clubbing, no edema, no cyanosis.] Neurological Exam: [No focal neurologic deficit.] - Labs CBC & Chem 7: 12/27/16 07:06 12/27/16 06:29 Labs: Abnormal Lab Results - Last 24 Hours (Table) 12/26/16 12/26/16 12/27/16 Range/Units 16:49 20:56 06:18 RBC (4.30-5.90) m/uL Hgb (13.0-17.5) gm/dL Hct (39.0-53.0) % Sodium (137-145) mmol/L BUN (9-20) mg/dL Glucose (74-99) mg/dL POC Glucose (mg/dL) 239 H 177 H 157 H (75-99) mg/dL 12/27/16 12/27/16 12/27/16 Range/Units 06:29 07:06 11:57 RBC 3.82 L (4.30-5.90) m/uL Hgb 12.1 L (13.0-17.5) gm/dL Hct 37.4 L (39.0-53.0) % Sodium 134 L (137-145) mmol/L BUN 21 H (9-20) mg/dL Glucose 127 H (74-99) mg/dL POC Glucose (mg/dL) 334 H (75-99) mg/dL Microbiology - Last 24 Hours (Table) 12/22/16 04:12 Blood Culture - Preliminary Blood No Growth after 120 hours Assessment and Plan Plan: 1 acute COPD exacerbation/acute bronchitis. 2 acute shortness of breath mainly due to COPD exacerbation with possibly a component of CHF 3 coronary artery disease with previous myocardial infarction 4 severe peripheral vascular disease and history of claudication with previous iliac stents 5 alcoholism 6 smoker 7 BPH 8 minor troponin leak without any EKG changes 9 chronic back pain 10 right bundle branch block pattern 11 abnormal chest x-ray showing patchy density in the right lower lobe I believe it is mostly density of atelectasis rather than true pneumonia. However I will empirically start the patient on Levaquin. Patient clearly has symptoms of tracheobronchitis and exacerbation of COPD. Recommendation: Consider discharge planning today, pulmonary-reynolds the patient will be switched to prednisone 30 mg daily for 5 days 20 mg daily for 5 days 10 mg daily for 5 days and 5 mg daily for 5 days. DuoNeb updrafts 4 times a day and when necessary Symbicort 160/4.5, 2 puffs twice a day Levaquin 750 mg daily for 5 more days. Must have follow-up with me in one week postdischarge. Time with Patient: Less than 30
[2016-12-27] MEDS ORDERED: predniSONE 10 MG TAB PO SCH (13:15)
[2016-12-27 13:26] VITALS: BP 107/64; PULSE 92
--- NOTE | 2016-12-27 13:58 | P.DS ---
Providers Date of admission: 12/21/16 23:24 Expected date of discharge: 12/27/16 Attending physician: Jaylen Silva Consults: 12/22/16 00:39 Consult Physician Routine Consulting Provider: Chantelle Reynolds Consult Reason/Comments: new onset CHF, elevated troponin Do you want consulting provider notified?: Yes, Notify in am 12/22/16 08:59 Consult Physician Urgent Consulting Provider: Katie Mcnair Consult Reason/Comments: CHF/Fluid overload Do you want consulting provider notified?: Yes Primary care physician: Jaylen Silva [facility] Course: Patient is 61-year-old white male, patient of Dr. Silva in the outpatient setting, with medical history significant for COPD, coronary artery disease, dyslipidemia, severe peripheral vascular disease and chronic claudication, chronic back pain, BPH, nicotine dependence, and alcohol abuse. Patient presented to the emergency department with complaints of shortness of breath. Patient was found to have evidence of acute diastolic congestive heart failure, acute exacerbation of COPD, and possible pneumonia. Patient was admitted to the ICU for close monitoring. Consults were requested for cardiology and pulmonary service. Patient improved with supplemental oxygen, diuretics, steroids, antibiotics, and supplemental oxygen. Patient was felt stable to be discharged with close follow-up in the outpatient setting. Discharge diagnoses: 1. Acute exacerbation of COPD. 2. Acute hypoxic respiratory failure suspect secondary to COPD exacerbation and acute systolic congestive heart failure; possible pneumonia. 3. Coronary artery disease with previous myocardial infarction. 4. Severe peripheral arterial disease and history of claudication with previous iliac stents. 5. BPH. 6. Elevated troponin leak without ischemic changes to EKG. 7. Chronic back pain. 8. Nicotine abuse. 9. Alcohol abuse. 10. Hypertension. 11. Dyslipidemia. 12. GERD. The above impression and plan have been discussed and directed by Dr. Mcnair. Ervin RILEY acting as scribe for Dr. Mcnair. Pertinent Studies: EKG; chest x-ray; echocardiogram with Doppler Patient Condition at Discharge: Good Plan - Discharge Summary New Discharge Prescriptions: Aspirin 325 mg PO DAILY #30 tab Budesonide [Pulmicort] 1 mg INHALATION RT-BID #60 nebu Furosemide [Lasix] 40 mg PO DAILY #30 tab Ipratropium-Albuterol Nebulize [Duoneb 0.5 mg-3 mg/3 ml Soln] 3 ml INHALATION RT -QID PRN #30 ampul.neb PRN Reason: Shortness Of Breath Levofloxacin [Levaquin] 750 mg PO DAILY@1400 #5 tab predniSONE 0 mg PO DIRECTED #30 tab Discharge Medication List Carvedilol [Coreg] 3.125 mg PO BID 06/27/16 [History] Finasteride [Proscar] 5 mg PO DAILY 07/17/16 [History] Atorvastatin [Lipitor] 80 mg PO HS #90 tab 07/18/16 [Rx] Clopidogrel [Plavix] 75 mg PO DAILY #90 tab 07/18/16 [Rx] Famotidine [Pepcid] 20 mg PO BID #10 tablet 12/01/16 [Rx] traMADol HCL [Ultram] 50 mg PO Q6HR PRN 12/01/16 [History] Aspirin 325 mg PO DAILY #30 tab 12/27/16 [Rx] Budesonide [Pulmicort] 1 mg INHALATION RT-BID #60 nebu 12/27/16 [Rx] Furosemide [Lasix] 40 mg PO DAILY #30 tab 12/27/16 [Rx] Ipratropium-Albuterol Nebulize [Duoneb 0.5 mg-3 mg/3 ml Soln] 3 ml INHALATION RT -QID PRN #30 ampul.neb 12/27/16 [Rx] LORazepam [Ativan] 0.5 mg PO BID tab 12/27/16 [Rx] Levofloxacin [Levaquin] 750 mg PO DAILY@1400 #5 tab 12/27/16 [Rx] Multivitamins, Thera [Multivitamin (formulary)] 1 each PO DAILY@1200 tab [Rx] Thiamine [Vitamin B-1] 100 mg PO BID@1200,1700 #0 tab 12/27/16 [Rx] guaiFENesin [Mucinex] 600 mg PO Q12HR #0 tablet.er 12/27/16 [Rx] predniSONE 0 mg PO DIRECTED #30 tab 12/27/16 [Rx] Follow up Appointment(s)/Referral(s): [facility] [Provider Group] - 01/09/17 3:30 pm ([facility]) John Inman MD [STAFF PHYSICIAN] - 01/07/17 10:15 am Jaylen Silva MD [Primary Care Provider] - 12/30/16 10:00 am Patient Instructions/Handouts: Heart Failure (DC), Abuse of Alcohol (DC) Discharge Disposition: HOME SELF-CARE
[2016-12-27] MEDS ORDERED: LEVOFLOXACIN 750 MG TAB PO SCH (14:00)
[2016-12-27] MEDS ORDERED: SYMBICORT 160-4.5 MCG INHALER INHALATION SCH (20:00)
== END 2016-12-27 14:20 | disposition home or self-care (01) | DRG 291 ==
LOC: EC 18:41 → 6SEL 23:24 → 6ICU 12-22 11:30 → 6SEL 12-24 10:20
PROVIDERS: ADMIT Family Medicine; ATTEND Family Medicine
DX: I11.0 Hypertensive heart disease with heart failure (principal); J96.01 Acute respiratory failure with hypoxia; J44.0 Chronic obstructive pulmonary disease with (acute) lower respiratory infection; J44.1 Chronic obstructive pulmonary disease with (acute) exacerbation; I50.23 Acute on chronic systolic (congestive) heart failure; J20.9 Acute bronchitis, unspecified; I25.2 Old myocardial infarction; I25.10 Atherosclerotic heart disease of native coronary artery without angina pectoris; I73.9 Peripheral vascular disease, unspecified; G89.29 Other chronic pain; F17.200 Nicotine dependence, unspecified, uncomplicated; F10.20 Alcohol dependence, uncomplicated; F41.9 Anxiety disorder, unspecified; K21.9 Gastro-esophageal reflux disease without esophagitis; E78.5 Hyperlipidemia, unspecified; F32.9 Major depressive disorder, single episode, unspecified; I45.10 Unspecified right bundle-branch block; M54.9 Dorsalgia, unspecified; N40.0 Benign prostatic hyperplasia without lower urinary tract symptoms; Z95.828 Presence of other vascular implants and grafts; Z79.02 Long term (current) use of antithrombotics/antiplatelets; Z79.899 Other long term (current) drug therapy
CPT/HCPCS: 36415; 36600; 71010; 71020; 80048; 80053; 81001; 82550; 82553; 82805; 83605; 83735; 83880; 84100; 84132; 84484; 85025; 85610; 85730; 87040; 87086; 93005; 93306; 94640; 96374; 99285

== ENCOUNTER → 2017-01-17 | Day surgery (SDC) | payer OTHER ==
[2017-01-13 16:31] VITALS: BMI 24.7
[~2017-01-17] MED LIST: ALPRAZolam 0.25 MG TAB PO PRN; ALPRAZolam 0.5 MG TAB PO PRN; ASPIRIN 325 MG TAB PO STA; ATORVASTATIN 80 MG TAB PO STA; BIVALIRUDIN 250 MG in SODIUM CHLORIDE 0.9% 35 ML IV ONE; BIVALIRUDIN BOLUS 250 MG/50 ML IV ONE; HEPARIN SODIUM 1,000 UNIT/ML VIAL IV ONE; IOHEXOL 350 MG/ML 125ML BOTTLE INJ ONE; LIDOCAINE 2% INJ 20 MG/ML SQ ONE; MIDAZOLAM 2 MG/2 ML VIAL IVP ONE; NITROGLYCERIN SL TABS 0.4 MG TAB SUBLINGUAL PRN; RX INFO: IV CONTRAST WAS GIVEN 1 EACH MISC MISCELLANE PRN; SODIUM CHLORIDE 0.9% 1,000 ML IV SCH; SODIUM CHLORIDE 0.9% 1,000 ML in EMPTY BAG 1 BAG IV ONE
[2017-01-17 07:06] VITALS: RESP 18
[2017-01-17] MEDS: VERAPAMIL SYRINGE (5 MG/10 ML) INTRAARTER ONE ×2 (08:10→08:53)
--- NOTE | 2017-01-17 09:44 | LTR ---
January 17, 2017 RE: Korey Cui Dear Dr. Silva: Mr. Korey Cui underwent a heart catheterization after he was diagnosed with cardiomyopathy. The heart catheterization showed severe triple-vessel CAD. Also it showed heavily calcified right and left coronary system. With his anatomy, coronary artery bypass grafting will be the best option for revascularization. I want to thank you for allowing me to participate in his care and please do not hesitate to call if you have any question or concern. Sincerely, SARA MENDIOLA MD
--- NOTE | 2017-01-17 09:58 | CC ---
DATE OF SERVICE: 01/17/2017 PERFORMING PHYSICIAN: John Oliver M.D., Probate Paralegal. PROCEDURE PERFORMED: 1. Selective right and left coronary angiogram. 2. Intravascular ultrasound (IVUS) of the left main and LAD. INDICATION: This is a pleasant 62-year-old gentleman who is known to have severe peripheral arterial disease, hypertension, dyslipidemia, who was admitted to the hospital recently with acute respiratory failure secondary to COPD and CHF exacerbation. During his hospitalization, he underwent an echocardiogram which showed cardiomyopathy with EF around 40% with evidence of wall motion abnormalities consistent with possible underlying CAD. He was brought today to undergo a heart catheterization to rule out any severe underlying CAD. APPROACH: Right radial artery. COMPLICATIONS: None. LEVEL OF SEDATION: Moderate with a sedation length of 48 minutes. PROCEDURE DESCRIPTION: After obtaining an informed consent, the patient was brought to the Cardiac Accounting Consultant. The right radial artery was cannulated using micropuncture technique. The micropuncture wire passed easily, then I placed a 6 [place] sheath in the right radial artery. After that, I did give the patient 2 mg of verapamil IA and 3000 units of heparin IV. After that, I did selective right and left coronary angiogram using JR4 and JL3.5 catheters. After reviewing the angiogram, we decided to do an IVUS of the left main and LAD. Please see a separate paragraph for that. SELECTIVE FOR CORONARY ANGIOGRAM: 1. The right coronary artery is a large-caliber vessel and it is a dominant vessel and it is a very heavily calcified vessel. The right coronary artery is 100% occluded in the midportion and fills by collateral from the left coronary system. 2. The left main is calcified and distally is hazy with disease, appeared to be in the range of 40% to 50%. The left main bifurcates into the left circumflex and left anterior descending artery. 3. The left circumflex is a large-caliber vessel and it is a nondominant vessel. The proximal left circumflex appeared to have mild disease only. It gives rises into the first and second obtuse marginal branches. The first OM branch is a large-caliber vessel with disease in the midportion, appeared to be in the range of 70%. The second OM branch appeared to be occluded and fills by collateral from the LAD. The second OM branch appeared to be a good size vessel as well. The mid left circumflex appeared to have disease in the range of 50%. Distally, appeared to have mild disease only. 4. The left anterior descending artery. The ostial LAD appeared to have a plaque, seems to be in the range of 70%. The very proximal LAD appeared to have eccentric lesion in the range of 70% to 80%. The LAD in the proximal portion gives rises into a large diagonal branch, which seems to be angiographically normal. The mid LAD and distal LAD appeared to be angiographically normal. 5. Intravascular ultrasound (IVUS) of the left main: Anticoagulation was initiated using Angiomax. Subsequently did use a JL3.5 guiding catheter. I did wire the LAD using a Whisper wire. After that, I did advance IVUS catheter distal to the lesion in the proximal LAD and I did manual pull back. The IVUS showed that the proximal LAD appeared to be very tight as well as the ostial LAD appeared to be very tight with a plaque extending to the distal left main, which appeared to be severely diseased. CONCLUSION: 1. Heavily calcified right and left coronary system. 2. Severe triple-vessel coronary artery disease. 3. Occluded right coronary artery in the midportion and fills by collateral from the left coronary system. 4. Occluded second obtuse marginal branch of the left circumflex and fills by collateral from the left coronary system. 5. Severe disease involving the ostial and proximal left anterior descending artery. 6. Severe disease involving the distal left main coronary artery as well. POSTPROCEDURE MANAGEMENT: 1. Maximize medical treatment. 2. I will refer the patient to undergo coronary artery bypass grafting.
[2017-01-17 13:30] VITALS: BP 117/68; PULSE 86; TEMP 98.4
== END ==
LOC: CATHCVL 06:30
PROVIDERS: ATTEND Internal Medicine Interventional Cardiology
DX: I25.10 Atherosclerotic heart disease of native coronary artery without angina pectoris (principal); I25.84 Coronary atherosclerosis due to calcified coronary lesion; I11.0 Hypertensive heart disease with heart failure; I25.82 Chronic total occlusion of coronary artery; I50.9 Heart failure, unspecified; F17.210 Nicotine dependence, cigarettes, uncomplicated; J44.9 Chronic obstructive pulmonary disease, unspecified; Z82.49 Family history of ischemic heart disease and other diseases of the circulatory system; Z82.3 Family history of stroke; E78.5 Hyperlipidemia, unspecified; I73.9 Peripheral vascular disease, unspecified; Z79.02 Long term (current) use of antithrombotics/antiplatelets; Z79.82 Long term (current) use of aspirin; Z79.899 Other long term (current) drug therapy; Z88.8 Allergy status to other drugs, medicaments and biological substances
CPT/HCPCS: 92978; 92979; 93454; 99152; 99153 ×2; C1769; C1887; C1753; C1894; J2001; J2250; J1644; J0583; Q9967

== ENCOUNTER 2017-03-15 08:12 | Emergency (ER) | payer OTHER ==
[~2017-03-15 08:12] MED LIST changes: -ALPRAZolam 0.25 MG TAB PO PRN; -ALPRAZolam 0.5 MG TAB PO PRN; -ASPIRIN 325 MG TAB PO STA; -ATORVASTATIN 80 MG TAB PO STA; -BIVALIRUDIN 250 MG in SODIUM CHLORIDE 0.9% 35 ML IV ONE; -BIVALIRUDIN BOLUS 250 MG/50 ML IV ONE; +EPINEPHrine 10 ML SYRINGE (0.1 MG/ML) ONE; -HEPARIN SODIUM 1,000 UNIT/ML VIAL IV ONE; -IOHEXOL 350 MG/ML 125ML BOTTLE INJ ONE; -LIDOCAINE 2% INJ 20 MG/ML SQ ONE; -MIDAZOLAM 2 MG/2 ML VIAL IVP ONE; -NITROGLYCERIN SL TABS 0.4 MG TAB SUBLINGUAL PRN; -RX INFO: IV CONTRAST WAS GIVEN 1 EACH MISC MISCELLANE PRN; +SODIUM BICARB 8.4% 50 ML SYR (1 MEQ/ML) ONE; -SODIUM CHLORIDE 0.9% 1,000 ML IV SCH; -SODIUM CHLORIDE 0.9% 1,000 ML in EMPTY BAG 1 BAG IV ONE
[2017-03-15 08:57] VITALS: BP 0/0; PULSE 0; RESP 0; TEMP 0
--- NOTE | 2017-03-15 09:01 | ED ---
General Adult HPI - General Stated complaint: cardiac arrest Time Seen by Provider: 03/15/17 08:33 Source: RN notes reviewed, old records reviewed - History of Present Illness Initial comments: This is a 62-year-old male the ER for evaluation. Patient brought in by EMS and PD after being found down. Patient's significant cardiac history, patient unable to give history secondary to state if he is in cardiopulmonary arrest this time receiving CPR but history is obtained from EMS and patient's chart as well as patient's . Patient wanted to mourns today and patient's and have a half-hour later on the ground not really with no pulse. CPR was initiated PD was at scene and EMS was at scene, patient brought to ER after approximately 30 minutes of CPR - Related Data Home Medications Medication Instructions Recorded Confirmed Carvedilol [Coreg] 3.125 mg PO BID 06/27/16 01/17/17 Finasteride [Proscar] 5 mg PO DAILY 07/17/16 01/17/17 traMADol HCL [Ultram] 50 mg PO Q6HR PRN 12/01/16 01/17/17 Previous Rx's Medication Instructions Recorded Atorvastatin [Lipitor] 80 mg PO HS #90 tab 07/18/16 Clopidogrel [Plavix] 75 mg PO DAILY #90 tab 07/18/16 Famotidine [Pepcid] 20 mg PO BID #10 tablet 12/01/16 Aspirin 325 mg PO DAILY #30 tab 12/27/16 Furosemide [Lasix] 40 mg PO DAILY #30 tab 12/27/16 LORazepam [Ativan] 0.5 mg PO BID tab 12/27/16 Multivitamins, Thera [Multivitamin 1 each PO DAILY@1200 tab 12/27/16 (formulary)] Thiamine [Vitamin B-1] 100 mg PO BID@1200,1700 #0 tab 12/27/16 Allergies Allergy/AdvReac Type Severity Reaction Status Date / Time alendronate sodium Allergy Rash/Hives Verified 01/17/17 06:44 [From Fosamax] codeine AdvReac "spacey" Verified 01/17/17 06:44 Review of Systems ROS Statement: Those systems with pertinent positive or pertinent negative responses have been documented in the HPI. ROS Other: All systems not noted in ROS Statement are negative. Past Medical History Past Medical History: Chest Pain / Angina, Myocardial Infarction (OR), Vascular Disorder Additional Past Medical History / Comment(s): COPD, coronary artery disease, severe peripheral vascular disease and chronic claudication, chronic back pain, chronic smoker, alcoholism, BPH,prednisone December 2016. Last Myocardial Infarction Date:: unk History of Any Multi-Drug Resistant Organisms: None Reported Past Surgical History: Tonsillectomy Additional Past Surgical History / Comment(s): ANGIOGRAM 06/28/16, iliac stents placed bilaterally 07-17-[address] Oliver Past Anesthesia/Blood Transfusion Reactions: No Reported Reaction Smoking Status: Current every day smoker - Past Family History Mother Family Medical History: CVA/TIA Father Family Medical History: CVA/TIA General Exam Limitations: altered mental status General appearance: obtunded, in distress Head exam: Present: atraumatic, normocephalic, normal inspection Eye exam: Present: other (Fixed and dilated) Neck exam: Present: normal inspection. Absent: tenderness, meningismus, lymphadenopathy Respiratory exam: Present: other (Apneic) Cardiovascular Exam: Present: other (Asystole) GI/Abdominal exam: Present: soft, normal bowel sounds. Absent: distended, tenderness, guarding, rebound, rigid Extremities exam: Present: normal inspection, full ROM, normal capillary refill. Absent: tenderness, pedal edema, joint swelling, calf tenderness Skin exam: Present: cyanosis, pallor, mottled Course - Reevaluation(s) Reevaluation #1: 03/15/17 09:06 No success with CPR and advanced life support, ACLS protocol, patient pronounced time of 832 Reevaluation #2: 03/15/17 09:07 Spoke with the patient's family regarding patient's , questions are answered, Reevaluation #3: 03/15/17 09:08 hearing examiner excepts patient, patient's primary care we'll sign off on certificate Medical Decision Making - Medical Decision Making 62 mouth ER for evaluation. Patient in the ER after having significant cardiopulmonary arrest likely secondary to OR with history, patient was brought in in asystole, had greater than 40 minutes of CPR done advanced ACLS protocol was followed, no acute change from asystole, pupils fixed and dilated, patient time of was 8:32. Critical Care Time Critical Care Time: Yes Total Critical Care Time: 31 Disposition Clinical Impression: Cardiopulmonary arrest Disposition: Referrals: Jaylne Silva MD [Primary Care Provider] - 1-2 days Preliminary Cause of : CPA,OR
== END 2017-03-15 11:12 | disposition expired ==
LOC: EC 08:12
DX: I46.9 Cardiac arrest, cause unspecified (principal); N40.0 Benign prostatic hyperplasia without lower urinary tract symptoms; F17.200 Nicotine dependence, unspecified, uncomplicated; Z88.5 Allergy status to narcotic agent; Z88.8 Allergy status to other drugs, medicaments and biological substances; Z79.899 Other long term (current) drug therapy
CPT/HCPCS: 99291; 92950; J0171